=== PATIENT | female | born 1985 | race Caucasian/White ===

== ENCOUNTER 2016-08-07 17:34 | Emergency (ER) | payer MEDICAID ==
[2016-08-07] MEDS ORDERED: IPRATROPIUM/ALBUTEROL 3 ML NEB INH STA (18:44)
[2016-08-07] MEDS ORDERED: IPRATROPIUM/ALBUTEROL 3 ML NEB INH ONE (18:48)
== END 2016-08-07 19:49 | disposition home or self-care (01) ==
DX: J06.9 Acute upper respiratory infection, unspecified (principal); B97.89 Other viral agents as the cause of diseases classified elsewhere; J45.901 Unspecified asthma with (acute) exacerbation; J44.9 Chronic obstructive pulmonary disease, unspecified; F17.210 Nicotine dependence, cigarettes, uncomplicated
CPT/HCPCS: 94640; 99283; 99284; J7620

== ENCOUNTER 2016-08-20 10:08 | Outpatient (CLI) | payer MEDICAID ==
[2016-08-20] MEDS ORDERED: IOPAMIDOL-300 100 ML VIAL IVP ONE (11:00)
== END 2016-08-20 10:09 | disposition home or self-care (01) ==
DX: G44.82 Headache associated with sexual activity (principal)
CPT/HCPCS: 70460; Q9967

== ENCOUNTER 2016-11-22 17:34 | Emergency (ER) | payer MEDICAID ==
[2016-11-22] MEDS ORDERED: SODIUM CHLORIDE 0.9% 1,000 ML IV ONE (17:39)
== END 2016-11-22 20:44 | disposition home or self-care (01) ==
DX: R10.2 Pelvic and perineal pain (principal); R03.0 Elevated blood-pressure reading, without diagnosis of hypertension; J45.909 Unspecified asthma, uncomplicated; M79.7 Fibromyalgia; F17.200 Nicotine dependence, unspecified, uncomplicated

== ENCOUNTER 2017-01-21 16:27 | Emergency (ER) | payer MEDICAID ==
[2017-01-21 16:35] VITALS: BP 142/84
--- NOTE | 2017-01-21 17:12 | ED Physician Documentation ---
PD HPI HEENT - Stated complaint Stated Complaint: BOTTOM RT BROKEN TOOTH - Chief complaint Chief Complaint: Heent - History obtained from History obtained from: Patient - History of Present Illness Timing - onset: How many days ago (several) Timing - duration: Days (several) Timing - details: Gradual onset Pain level max: 6 Pain level now: 6 Location: Tooth (Right lower molar) Improves: Nothing Worsens: Temperatures, Other (Chewing) Associated symptoms: No: Fever, Congestion, Rhinorrhea, Trismus, Unable to swallow, Swollen nodes, Facial swelling, Headache, Cough Similar symptoms before: Diagnosis (Dental caries) - Additional information Additional information: Patient with dental caries to the right lower tooth, states the molar broke a few days ago. Is having increasing pain. Has a dental appointment tomorrow. 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) HEENT: Tonsil/Adenoidectomy - Present Medications Home Medications: Ambulatory Orders Medication Instructions Recorded Confirmed Hydrocodone/Acetaminophen 1 - 2 each PO Q6H PRN #10 tablet 01/21/17 [Hydrocodon-Acetaminophen 5-325] Ondansetron Odt [Zofran] 4 mg TL Q6H PRN #10 tablet 01/21/17 Penicillin V Potassium 500 mg PO Q6HR #40 tablet 01/21/17 - Allergies Allergies/Adverse Reactions: Allergies Allergy/AdvReac Type Severity Reaction Status Date / Time codeine [Codeine] AdvReac Unknown Respiratory Verified 01/21/17 16:34 naproxen AdvReac Unknown Respiratory Verified 01/21/17 16:34 pregabalin [From Lyrica] AdvReac Unknown Respiratory Verified 01/21/17 16:34 - Social History Does the pt smoke?: Yes Smoking Status: Current every day smoker Does the pt drink ETOH?: No Does the pt have substance abuse?: No - Immunizations Immunizations are current?: Yes - POLST Patient has POLST: No PD ED PE NORMAL - Vitals Vital signs reviewed: Yes - General General: Alert and oriented X 3, No acute distress, Well developed/nourished - HEENT HEENT: PERRL, Moist mucous membranes, Other (Diffuse dental caries, the right lower molar is fractured, missing the lateral portion. Decay visible. No gingival or drainable abscess. No submandibular swelling) - Neck Neck: Supple, no meningeal sign - Cardiac Cardiac: RRR, Strong equal pulses - Respiratory Respiratory: No respiratory distress, Clear bilaterally - Derm Derm: Warm and dry - Neuro Neuro: Alert and oriented X 3 - Psych Psych: Normal mood, Normal affect Results - Vitals Vitals: Vital Signs - 24 hr 01/21/17 16:32 Temperature 36.7 C Heart Rate 134 H Respiratory 16 Rate Blood Pressure 142/84 H O2 Saturation 100 Oxygen O2 Source Room air PD MEDICAL DECISION MAKING - ED course Complexity details: reviewed old records, considered differential, d/w patient ED course: Patient is a 31-year-old female who presents to the emergency department with dental decay and fractured, decaying teeth. She has a dental appointment tomorrow. Will start on antibiotics and prescribe a small amount of pain medication for home. She is well-appearing, nontoxic. Afebrile. Patient counseled regarding signs and symptoms for which I believe and urgent re- evaluation would be necessary. Patient with good understanding of and agreement to plan and is comfortable going home at this time This document was made in part using voice recognition software. While efforts are made to proofread this document, sound alike and grammatical errors may occur. No trismus. Normal phonation. No ludwigs angina Departure - Departure Disposition: 01 Home, Self Care Clinical Impression: Pain due to dental caries Condition: Good Instructions: ED Tooth Pain Follow-Up: your,dentist tomorrow [Other] Prescriptions: Penicillin V Potassium 500 mg PO Q6HR #40 tablet Hydrocodone/Acetaminophen [Hydrocodon-Acetaminophen 5-325] 1 - 2 each PO Q6H PRN #10 tablet PRN Reason: pain Ondansetron Odt [Zofran] 4 mg TL Q6H PRN #10 tablet PRN Reason: Nausea / Vomiting Comments: Make sure to follow up with your dentist tomorrow. Take all antibiotics until gone. Return if you worsen. Do not drink alcohol or drive while on narcotic pain medicine. Note that many narcotic pain relievers also contain tylenol/acetaminophen. Please ensure that your total dose of acetaminophen from all sources does not exceed 3 grams (3000mg) per day. You may constipated on this medication, take a stool softener such as "Colace" twice a day while you are on it. Also recommend a wfjb-qcb-sajhqod laxative such as senna or MiraLAX any day that you do not have a bowel movement. If you received narcotic pain medication in the emergency department, do not drive or operate machinery for the next 24 hours. Your blood pressure was elevated today on check in to the emergency department. This does not mean that you have hypertension, it is a common phenomenon to check into the emergency department and have elevated blood pressure. I recommend that you see your primary care physician within the week to have it rechecked when you're feeling better. Discharge Date/Time: 01/21/17 17:21
== END 2017-01-21 17:21 | disposition home or self-care (01) ==
LOC: ED 16:27
DX: K08.89 Other specified disorders of teeth and supporting structures (principal); K02.9 Dental caries, unspecified; R03.0 Elevated blood-pressure reading, without diagnosis of hypertension; J45.909 Unspecified asthma, uncomplicated; M79.7 Fibromyalgia; F17.200 Nicotine dependence, unspecified, uncomplicated
CPT/HCPCS: 99283

== ENCOUNTER 2017-01-24 19:03 | Emergency (ER) | payer MEDICAID ==
[2017-01-24] MEDS ORDERED: oxyCODONE/ACET 5/325 Prepack 4 PO STA (20:22)
[2017-01-24] MEDS ORDERED: cefTRIAXone 1 GM VIAL IM STA (20:22)
[2017-01-24] MEDS ORDERED: LIDOCAINE 1% 2 ML VIAL ONE (20:26)
[2017-01-24] MEDS ORDERED: oxyCODONE/ACET 5/325 Prepack 4 PO ONE (20:26)
[2017-01-24] MEDS ORDERED: cefTRIAXone 1 GM VIAL ONE (20:27)
--- NOTE | 2017-01-24 20:31 | ED Physician Documentation ---
PD HPI HEENT - Stated complaint Stated Complaint: TOOTH PX - Chief complaint Chief Complaint: General - History obtained from History obtained from: Patient - History of Present Illness Timing - onset: How many days ago (3) Timing - duration: Days (3) Timing - details: Gradual onset Pain level max: 8 Pain level now: 8 Location: Tooth (Right lower molar) Improves: Nothing Worsens: Everything Associated symptoms: Facial swelling (Right mandible). No: Fever, Congestion, Rhinorrhea, Trismus, Unable to swallow, Swollen nodes, Headache, Cough Recently seen: Emergency Dept, Other (Saw her dentist 2 days ago for a tooth extraction. Increasing pain since that time. 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) HEENT: Tonsil/Adenoidectomy - Present Medications Home Medications: Ambulatory Orders Medication Instructions Recorded Confirmed Hydrocodone/Acetaminophen 1 - 2 each PO Q6H PRN #10 tablet 01/21/17 [Hydrocodon-Acetaminophen 5-325] Ondansetron Odt [Zofran] 4 mg TL Q6H PRN #10 tablet 01/21/17 Penicillin V Potassium 500 mg PO Q6HR #40 tablet 01/21/17 Oxycodone HCl/Acetaminophen 1 - 2 each PO Q6H PRN #14 tablet 01/24/17 [Percocet 5-325 mg Tablet] - Allergies Allergies/Adverse Reactions: Allergies Allergy/AdvReac Type Severity Reaction Status Date / Time codeine [Codeine] AdvReac Unknown Respiratory Verified 01/21/17 16:34 naproxen AdvReac Unknown Respiratory Verified 01/21/17 16:34 pregabalin [From Lyrica] AdvReac Unknown Respiratory Verified 01/21/17 16:34 - Social History Does the pt smoke?: Yes Smoking Status: Current every day smoker Does the pt drink ETOH?: No Does the pt have substance abuse?: No - Immunizations Immunizations are current?: Yes - POLST Patient has POLST: No PD ED PE NORMAL - Vitals Vital signs reviewed: Yes - General General: Alert and oriented X 3, No acute distress - HEENT HEENT: Other (R lower molar extraction site, not bleeding. no visible clot. slight swelling to the lower mandible. No facial cellulitis.) - Neck Neck: Supple, no meningeal sign, No adenopathy - Cardiac Cardiac: RRR - Respiratory Respiratory: No respiratory distress, Clear bilaterally - Neuro Neuro: Alert and oriented X 3 - Psych Psych: Normal mood, Normal affect Results - Vitals Vitals: Vital Signs - 24 hr 01/24/17 01/24/17 19:06 20:53 Temperature 36.7 C Heart Rate 118 H 78 Respiratory 20 16 Rate Blood Pressure 158/100 H 131/80 H O2 Saturation 100 100 Oxygen O2 Source Room air PD MEDICAL DECISION MAKING - ED course Complexity details: considered differential, d/w patient ED course: Patient is a 31-year-old female who is 2 days status post tooth extraction, that was complicated in nature the root of the tooth reportedly had to be drilled out from the bone. She seems to be having complications from this. Given a injection of Rocephin here and will prescribe a small amount of pain medication for home. Encouraged her to talk to her dentist in the morning to get closer follow-up of her dental issues tonight. There is no drainable abscess. No Ludwigs angina. Normal phonation. No trismus. Patient counseled regarding signs and symptoms for which I believe and urgent re-evaluation would be necessary. Patient with good understanding of and agreement to plan and is comfortable going home at this time This document was made in part using voice recognition software. While efforts are made to proofread this document, sound alike and grammatical errors may occur. Departure - Departure Disposition: 01 Home, Self Care Clinical Impression: Dry socket Condition: Good Instructions: ED Socket Dry Follow-Up: your,dentist in the am [Other] Prescriptions: Oxycodone HCl/Acetaminophen [Percocet 5-325 mg Tablet] 1 - 2 each PO Q6H PRN # 14 tablet PRN Reason: pain Comments: Continue your antibiotics at home. Return if you worsen. You need to see her dentist in the morning for further evaluation. Do not drink alcohol or drive while on narcotic pain medicine. Note that many narcotic pain relievers also contain tylenol/acetaminophen. Please ensure that your total dose of acetaminophen from all sources does not exceed 3 grams (3000mg) per day. You may constipated on this medication, take a stool softener such as "Colace" twice a day while you are on it. Also recommend a ekwl-xxd-syawiok laxative such as senna or MiraLAX any day that you do not have a bowel movement. If you received narcotic pain medication in the emergency department, do not drive or operate machinery for the next 24 hours. Your blood pressure was elevated today on check in to the emergency department. This does not mean that you have hypertension, it is a common phenomenon to check into the emergency department and have elevated blood pressure. I recommend that you see your primary care physician within the week to have it rechecked when you're feeling better. Discharge Date/Time: 01/24/17 20:52
[2017-01-24 20:55] VITALS: BP 131/80
== END 2017-01-24 20:52 | disposition home or self-care (01) ==
LOC: ED 19:03
DX: M27.3 Alveolitis of jaws (principal); R03.0 Elevated blood-pressure reading, without diagnosis of hypertension; F17.200 Nicotine dependence, unspecified, uncomplicated; Z98.818 Other dental procedure status
CPT/HCPCS: 96372; 99283

== ENCOUNTER 2017-01-31 11:32 | Emergency (ER) | payer MEDICAID ==
--- NOTE | 2017-01-31 13:33 | ED Physician Documentation ---
PD HPI HEENT - Stated complaint Stated Complaint: TOOTH PX - Chief complaint Chief Complaint: Heent - History obtained from History obtained from: Patient - History of Present Illness Timing - onset: Other (Dental extraction 2 weeks ago with increasing pain a few days later and ever since, then got better and got worse again. She has some facial tenderness but no fevers. No possibility of .) Review of Systems Constitutional: denies: Fever, Chills Nose: denies: Rhinorrhea / runny nose, Congestion Throat: reports: Dental pain / toothache. 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) HEENT: Tonsil/Adenoidectomy - Present Medications Home Medications: Ambulatory Orders Medication Instructions Recorded Confirmed Ondansetron Odt [Zofran] 4 mg TL Q6H PRN #10 tablet 01/21/17 01/31/17 Penicillin V Potassium 500 mg PO Q6HR #40 tablet 01/21/17 01/31/17 Clindamycin [Cleocin] 300 mg PO Q6H 10 Days 01/31/17 HYDROcod/ACETAM 5/325 [Birdseye 5/325] 1 - 2 ea PO Q6H PRN #15 tablet 01/31/17 Nicotine 14 mg Patch [Nicoderm] 1 each TOP Q24H #30 patch 01/31/17 - Allergies Allergies/Adverse Reactions: Allergies Allergy/AdvReac Type Severity Reaction Status Date / Time codeine [Codeine] AdvReac Unknown Respiratory Verified 01/21/17 16:34 naproxen AdvReac Unknown Respiratory Verified 01/21/17 16:34 pregabalin [From Lyrica] AdvReac Unknown Respiratory Verified 01/21/17 16:34 - Social History Does the pt smoke?: Yes Smoking Status: Current every day smoker Does the pt drink ETOH?: No Does the pt have substance abuse?: No - Immunizations Immunizations are current?: Yes - POLST Patient has POLST: No PD ED PE NORMAL - Vitals Vital signs reviewed: Yes - General General: Alert and oriented X 3, No acute distress - HEENT HEENT: Other (Dry socket posterior right mandible without facial bony tenderness , facial swelling, or trismus.) - Neuro Neuro: Alert and oriented X 3, Normal speech - Psych Psych: Normal mood, Normal affect Results - Vitals Vitals: Vital Signs - 24 hr 01/31/17 11:48 Temperature 36.5 C Heart Rate 118 H Respiratory 16 Rate Blood Pressure 135/85 H O2 Saturation 99 Oxygen O2 Source Room air PD MEDICAL DECISION MAKING - ED course ED course: The patient and family were counseled as to the diagnosis and need for follow- up. I counseled the patient with regard to signs and symptoms that would necessitate an urgent reevaluation in the emergency department. They understand they are welcome to return at any time if worse or if not improving as expected. This document was made in part using voice recognition software. While efforts are made to proofread this documents, sound alike and grammatical errors may occur. Departure - Departure Disposition: 01 Home, Self Care Clinical Impression: Dry socket Condition: Good Record reviewed to determine appropriate education?: Yes Instructions: ED Tooth Pain Prescriptions: Clindamycin [Cleocin] 300 mg PO Q6H 10 Days Nicotine 14 mg Patch [Nicoderm] 1 each TOP Q24H #30 patch HYDROcod/ACETAM 5/325 [Birdseye 5/325] 1 - 2 ea PO Q6H PRN #15 tablet PRN Reason: Pain Comments: It is very important that she follow-up with a dentist. When it comes to dental problems like yours, the emergency department can only offer a short- term solution to your long-term problem. A couple of low cost options for dental care include: [facility] in [place], calls [phone] for an appointment Or [facility] in [place], call [phone] for an appointment. The policy of this emergency department is to not give more than 3 prescriptions for narcotics or other controlled substances in any 1 year. You have already surpassed this benchmark and we cannot prescribe narcotics for you. I encourage you to follow up with your primary care physician or to establish care with a primary care physician for ongoing pain management. You are always welcome to seek emergency care here for this or new issues but there will likely be limitations in the prescription of narcotic pain medication. Your blood pressure was elevated today on check into the emergency department. This does not mean that you have hypertension, it is a common phenomenon to come to the emergency department and have elevated blood pressure. I recommend that she see her primary care physician within the week to have it rechecked when you are feeling better.
[2017-01-31 13:37] VITALS: BP 130/68
== END 2017-01-31 13:37 | disposition home or self-care (01) ==
LOC: ED 11:32
DX: M27.3 Alveolitis of jaws (principal); R03.0 Elevated blood-pressure reading, without diagnosis of hypertension; J45.909 Unspecified asthma, uncomplicated; M79.7 Fibromyalgia; F17.200 Nicotine dependence, unspecified, uncomplicated
CPT/HCPCS: 99283

== ENCOUNTER 2017-02-05 10:43 | Outpatient (CLI) | payer MEDICAID ==
[2017-02-05 12:50] LABS: THYROID STIMULATING HORMONE 2.4 uIU/mL (0.34-5.60)
[2017-02-08 14:41] LABS: ANA SCREEN NEGATIVE (NEGATIVE)
== END 2017-02-05 10:44 | disposition home or self-care (01) ==
LOC: LAB 10:43
PROVIDERS: ATTEND Obstetrics & Gynecology
DX: R10.30 Lower abdominal pain, unspecified (principal)
CPT/HCPCS: 36415; 84439; 84443; 84481; 86038

== ENCOUNTER 2017-07-30 18:59 | Emergency (ER) | payer MEDICAID ==
[2017-07-30] MEDS ORDERED: ONDANSETRON ODT 4 MG TABLET TL STA (20:49)
[2017-07-30] MEDS ORDERED: KETOROLAC 60 MG/2 ML VIAL IM STA (20:49)
[2017-07-30] MEDS ORDERED: BENZONATATE 100 MG CAPSULE PO STA (20:50)
[2017-07-30] MEDS ORDERED: IBUPROFEN 600 MG TABLET PO STA (21:13)
--- NOTE | 2017-07-30 21:21 | XRAY Preliminary Report ---
Exam: XR CHEST 2 VIEW PA/LAT IMPRESSION: 1. Right middle lobe consolidation with bronchitis. 2. No pneumothorax or effusions. [facility] SITE ID: [id number]
[2017-07-30] MEDS ORDERED: AZITHROMYCIN 250 MG TABLET PO STA (22:10)
--- NOTE | 2017-07-30 22:10 | ED Physician Documentation ---
PD HPI URI - Stated complaint Stated Complaint: COUGH - Chief complaint Chief Complaint: Resp - History obtained from History obtained from: Patient - History of Present Illness Timing - onset: How many weeks ago (1) Timing details: Gradual onset, Still present Associated symptoms: Fever, Chills, Nasal congestion, Rhinorrhea, Productive cough Contributing factors: Sick contact Similar symptoms before: Work up / diagnostics Recently seen: Not recently seen - Additional information Additional information: Patient is a 32 year old female with no significant past medical history who is presenting to the emergency department for cough, fevers, congestion, and rib pain. patient states that she has not been feeling well for about the last week or so. patient states that for the last three days she has had more fevers , nausea, and pain with coughing. Patient states that she is worried that she might have pneumonia. Review of Systems Constitutional: reports: Fever, Chills, Myalgias Eyes: denies: Decreased vision, Photophobia Ears: reports: Ear pain Nose: reports: Rhinorrhea / runny nose, Congestion, Sinus pressure / pain Throat: denies: Sore throat Cardiac: denies: Chest pain / pressure, Palpitations Respiratory: reports: Cough GI: reports: Nausea, Vomiting, Diarrhea : denies: Dysuria, Frequency Skin: denies: Rash, Lesions Neurologic: denies: Generalized weakness, Focal weakness, Numbness Immunocompromised: denies: Immunocompromised PD PAST MEDICAL HISTORY - Past Medical History Past Medical History: Yes Cardiovascular: None Respiratory: Asthma Neuro: Headache/migraine Endocrine/Autoimmune: None GI: None : None HEENT: None Psych: None Musculoskeletal: Fibromyalgia, Chronic back pain Derm: None - Past Surgical History 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) HEENT: Tonsil/Adenoidectomy - Present Medications Home Medications: Ambulatory Orders Medication Instructions Recorded Confirmed Ondansetron Odt [Zofran] 4 mg TL Q6H PRN #10 tablet 01/21/17 01/31/17 Penicillin V Potassium 500 mg PO Q6HR #40 tablet 01/21/17 01/31/17 Clindamycin [Cleocin] 300 mg PO Q6H 10 Days capsule 01/31/17 HYDROcod/ACETAM 5/325 [Martha 5/325] 1 - 2 ea PO Q6H PRN #15 tablet 01/31/17 Nicotine 14 mg Patch [Nicoderm] 1 each TOP Q24H #30 patch 01/31/17 Azithromycin 250 mg PO DAILY #4 tablet 07/30/17 Benzonatate [Tessalon Perle] 100 mg PO Q8HR #20 capsule 07/30/17 - Allergies Allergies/Adverse Reactions: Allergies Allergy/AdvReac Type Severity Reaction Status Date / Time codeine [Codeine] AdvReac Unknown Respiratory Verified 01/21/17 16:34 naproxen AdvReac Unknown Respiratory Verified 01/21/17 16:34 pregabalin [From Lyrica] AdvReac Unknown Respiratory Verified 01/21/17 16:34 - Social History Does the pt smoke?: Yes Smoking Status: Current every day smoker Does the pt drink ETOH?: No Does the pt have substance abuse?: No - Immunizations Immunizations are current?: Yes - POLST Patient has POLST: No PD ED PE NORMAL - Vitals Vital signs reviewed: Yes - General General: Alert and oriented X 3 - Cardiac Cardiac: No murmur - Respiratory Respiratory: No respiratory distress, Clear bilaterally - Abdomen Abdomen: Soft, Non tender, Non distended - Derm Derm: Normal color, Warm and dry, No rash PD ED PE EXPANDED - Cardiac Cardiac: Tachy - Respiratory Respiratory: Rhonchi, Right lower lobe Results - Vitals Vitals: Vital Signs - 24 hr 07/30/17 07/30/17 07/30/17 19:49 20:41 22:07 Temperature 37.9 C H 37.3 C Heart Rate 116 H 106 H 103 H Respiratory 18 18 16 Rate Blood Pressure 136/80 H 148/93 H 134/85 H O2 Saturation 100 98 97 07/30/17 22:22 Temperature 37.1 C Heart Rate 105 H Respiratory 18 Rate Blood Pressure 139/80 H O2 Saturation 97 Oxygen O2 Source Room air - Rads (name of study) chest x-ray Radiology: Final report received (bronchitis with right sided consolidation) PD MEDICAL DECISION MAKING - ED course Complexity details: reviewed old records, reviewed results, re-evaluated patient , considered differential, d/w patient ED course: Patient was seen and examined at bedside. Imaging was ordered. When patient returned the results were reviewed. Patient was found to have a right sided pneumonia. Patient was started on azithromycin. Patient had a low psi and was appropriate for outpatient care. Patient felt comfortable with the plan and was stable for discharge with outpatient follow up. Departure - Departure Disposition: 01 Home, Self Care Clinical Impression: Pneumonia Condition: Good Instructions: Pneumonia Dc Follow-Up: primary,care provider [Other] - Within 3 Days Prescriptions: Benzonatate [Tessalon Perle] 100 mg PO Q8HR #20 capsule Azithromycin 250 mg PO DAILY #4 tablet Comments: Your chest x-ray showed a pneumonia. You had your first dose of antibiotics tonight and you will need to take them for the next 4 days. You should continue with cough and cold medicine. it is important that you stay well hydrated and take motrin or tylenol as needed for fevers, chills or pains. You should follow up with your doctor if your symptoms don't improve. You may return to the emergency department at any time for new, worsening or uncontrollable symptoms. Discharge Date/Time: 07/30/17 22:24
[2017-07-30 22:23] VITALS: BP 139/80
--- NOTE | 2017-07-30 23:03 | XRAY Report ---
EXAM: CHEST RADIOGRAPHY EXAM DATE: 07/30/2017 09:07 PM. CLINICAL HISTORY: Fever cough. COMPARISON: 05/29/2016. TECHNIQUE: 2 views. FINDINGS: Lungs/Pleura: Peribronchial cuffing with right middle lobe consolidation and air bronchograms. No eff usions or pneumothorax appreciated. Mediastinum: Heart and mediastinal contours are unremarkable. Other: None. IMPRESSION: 1. Right middle lobe consolidation with bronchitis. 2. No pneumothorax or effusions. [facility] Referring Provider Line: [phone] SITE ID: [id number]
== END 2017-07-30 22:24 | disposition home or self-care (01) ==
LOC: ED 18:59
DX: J18.9 Pneumonia, unspecified organism (principal); J45.909 Unspecified asthma, uncomplicated; M79.7 Fibromyalgia; F17.200 Nicotine dependence, unspecified, uncomplicated
CPT/HCPCS: 71020; 99283; 99284; A9270; Q0162

== ENCOUNTER 2017-10-15 13:15 | Emergency (ER) | payer MEDICAID ==
--- NOTE | 2017-10-15 14:53 | XRAY Preliminary Report ---
Exam: XR ANKLE 3 VIEW LT IMPRESSION: 1. No fracture or bony malalignment. 2. Mild lateral swelling. [facility] SITE ID: [id number]
--- NOTE | 2017-10-15 14:53 | XRAY Report ---
EXAM: LEFT ANKLE RADIOGRAPHY EXAM DATE: 10/15/2017 02:37 PM. CLINICAL HISTORY: Left ankle pain after fall today. COMPARISON: None. TECHNIQUE: 3 views. FINDINGS: Bones: No fracture or bone lesion. A small plantar calcaneal enthesophyte. Joints: No subluxation or joint effusion. Joint spaces are preserved. Soft Tissues: Mild swelling more prominent laterally. IMPRESSION: 1. No fracture or bony malalignment. 2. Mild lateral swelling. [facility] Referring Provider Line: [phone] SITE ID: [id number]
[2017-10-15] MEDS ORDERED: HYDROcod/ACETAM 5/325 MG TABLET PO STA (14:57)
[2017-10-15] MEDS ORDERED: IBUPROFEN 800 MG TABLET PO STA (14:57)
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
[2017-10-15 15:08] VITALS: BP 131/82
== END 2017-10-15 15:29 | disposition home or self-care (01) ==
LOC: ED 13:15
DX: S93.432A Sprain of tibiofibular ligament of left ankle, initial encounter (principal); W17.81XA Fall down embankment (hill), initial encounter; R03.0 Elevated blood-pressure reading, without diagnosis of hypertension; J45.909 Unspecified asthma, uncomplicated; M79.7 Fibromyalgia; F17.200 Nicotine dependence, unspecified, uncomplicated
CPT/HCPCS: 73610; 99283; A9270

== ENCOUNTER 2017-12-16 22:21 | Emergency (ER) | payer MEDICAID ==
[2017-12-16] MEDS ORDERED: predniSONE 20 MG TABLET PO STA (22:41)
[2017-12-16] MEDS ORDERED: AZITHROMYCIN 250 MG TABLET PO STA (22:41)
[2017-12-16] MEDS ORDERED: HYDROcod/ACET 5/325 Prepack 4 PO STA (22:41)
--- NOTE | 2017-12-16 22:49 | ED Physician Documentation ---
History of Present Illness - Stated complaint Stated Complaint: COUGH - Chief complaint Chief Complaint: Resp - History obtained from History obtained from: Patient - History of Present Illness Timing: Other (She has had a productive cough for last 3 weeks which is worsening and is now associated with shortness of breath and chills and sweats especially at night. She is a smoker but has cut back. There is no other URI symptom with it, no fever, no leg swelling. She has been using albuterol, NyQuil and Benadryl without relief.) Review of Systems Constitutional: reports: Chills, Sweats. 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 surgery) HEENT: Tonsil/Adenoidectomy - Present Medications Home Medications: Ambulatory Orders Medication Instructions Recorded Confirmed HYDROcod/ACETAM 5/325 [[place] 5/325] 1 - 2 ea PO Q6H PRN #10 tablet 10/15/17 Ibuprofen [Motrin] 800 mg PO Q8H PRN #30 tablet 10/15/17 Azithromycin [Zithromax] 250 mg PO DAILY #4 tablet 12/16/17 HYDROcod/ACETAM 5/325 [[place] 5/325] 1 - 2 ea PO Q6H PRN #10 tablet 12/16/17 predniSONE [Deltasone] 20 mg PO [id number] #21 tab 12/16/17 - Allergies Allergies/Adverse Reactions: Allergies Allergy/AdvReac Type Severity Reaction Status Date / Time codeine [Codeine] AdvReac Unknown Respiratory Verified 12/16/17 22:37 naproxen AdvReac Unknown Respiratory Verified 12/16/17 22:37 pregabalin [From Lyrica] AdvReac Unknown Respiratory Verified 12/16/17 22:37 - Social History Does the pt smoke?: Yes Smoking Status: Current every day smoker Does the pt drink ETOH?: No Does the pt have substance abuse?: No - Immunizations Immunizations are current?: Yes - POLST Patient has POLST: No PD ED PE NORMAL - Vitals Vital signs reviewed: Yes (Tachycardia down to 105 on my exam) - General General: Alert and oriented X 3, No acute distress - HEENT HEENT: PERRL, EOMI, Ears normal, Pharynx benign - Neck Neck: Supple, no meningeal sign, No bony TTP - Cardiac Cardiac: RRR, No murmur - Respiratory Respiratory: No respiratory distress, Other (Focal rhonchi at the right base) - Abdomen Abdomen: Soft, Non tender - Extremities Extremities: No edema, No calf tenderness / cord - Neuro Neuro: Alert and oriented X 3, Normal speech Results - Vitals Vitals: Vital Signs - 24 hr 12/16/17 22:26 Temperature 37.0 C Heart Rate 127 H Respiratory 24 Rate Blood Pressure 161/98 H O2 Saturation 99 Oxygen O2 Source Room air Departure - Departure Disposition: Home, Self Care Clinical Impression: Pneumonia Qualifiers: Pneumonia type: due to unspecified organism Laterality: right Lung location: lower lobe of lung Qualified Code(s): J18.1 - Lobar pneumonia, unspecified organism Condition: Good Record reviewed to determine appropriate education?: Yes Instructions: Pneumonia Dc Prescriptions: Azithromycin [Zithromax] 250 mg PO DAILY #4 tablet HYDROcod/ACETAM 5/325 [[place] 5/325] 1 - 2 ea PO Q6H PRN #10 tablet PRN Reason: Pain predniSONE [Deltasone] 20 mg PO [id number] #21 tab Comments: Call your doctor to arrange a follow-up appointment, make the next available appointment. In the interim, return anytime if worse or if new symptoms develop. Your blood pressure was elevated today on check into the emergency department. This does not mean that you have hypertension, it is a common phenomenon to come to the emergency department and have elevated blood pressure. I recommend that you see your primary care physician within the week to have it rechecked when you are feeling better.
[2017-12-16 23:20] VITALS: BP 128/73
== END 2017-12-16 22:58 | disposition home or self-care (01) ==
LOC: ED 22:21
DX: J18.1 Lobar pneumonia, unspecified organism (principal); R03.0 Elevated blood-pressure reading, without diagnosis of hypertension; R00.0 Tachycardia, unspecified; F17.200 Nicotine dependence, unspecified, uncomplicated
CPT/HCPCS: 99283; 99284; A9270; J7512

== ENCOUNTER 2018-06-09 19:16 | Emergency (ER) | payer MEDICAID ==
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
[2018-06-09] MEDS ORDERED: CYCLOBENZAPRINE 10 MG Prepack 2 PO PRN (21:56)
[2018-06-09 22:05] VITALS: BP 132/81
== END 2018-06-09 22:04 | disposition home or self-care (01) ==
LOC: ED 19:16
DX: S16.1XXA Strain of muscle, fascia and tendon at neck level, initial encounter (principal); V43.52XA Car driver injured in collision with other type car in traffic accident, initial encounter; Y92.410 Unspecified street and highway as the place of occurrence of the external cause; F17.200 Nicotine dependence, unspecified, uncomplicated
CPT/HCPCS: 72125; 99283

== ENCOUNTER 2018-07-02 20:30 | Emergency (ER) | payer MEDICAID, OTHER ==
[2018-07-02] MEDS ORDERED: DEXAMETHASONE 10 MG/ML VIAL PO STA (20:45)
[2018-07-02] MEDS ORDERED: IPRATROPIUM/ALBUTEROL 3 ML NEB INH STA (20:45)
[2018-07-02 20:47] VITALS: BP 176/124
--- NOTE | 2018-07-02 20:51 | ED Physician Documentation ---
PD HPI DYSPNEA - Stated complaint Stated Complaint: SOA/COUGH - Chief complaint Chief Complaint: Resp - History obtained from History obtained from: Patient - History of Present Illness Timing - onset: How many days ago (4) Timing - onset during: Rest Timing - duration: Days (4) Timing - details: Gradual onset, Still present Inciting event(s): Allergic rxn/anaphylaxis Improved by: Inhaler/neb Worsened by: Exertion Associated symptoms: Cough, Wheezing Similar symptoms before: Diagnosis (bronchitis) Recently seen: Not recently seen - Additional information Additional information: 33-year-old female with a history of asthma has developed a cough and congestion over the past 4 days. She has had to use her inhaler every 2 hours over the last 4 days. She has an nebulizer machine at home as well. She is not using an inhaled steroid. She has asthma that she will use an inhaler for about once per week. She is not bringing up any phlegm with this, she has not had a fever, she has had some sweats at night. Review of Systems Constitutional: reports: Sweats. 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) HEENT: Tonsil/Adenoidectomy - Present Medications Home Medications: Ambulatory Orders Medication Instructions Recorded Confirmed HYDROcod/ACETAM 5/325 [[place] 5/325] 1 - 2 ea PO Q6H PRN #10 tablet 10/15/17 Ibuprofen [Motrin] 800 mg PO Q8H PRN #30 tablet 10/15/17 Azithromycin [Zithromax] 250 mg PO DAILY #4 tablet 12/16/17 HYDROcod/ACETAM 5/325 [[place] 5/325] 1 - 2 ea PO Q6H PRN #10 tablet 12/16/17 predniSONE [Deltasone] 20 mg PO [id number] #21 tab 12/16/17 Cyclobenzaprine [Flexeril] 10 mg PO TID PRN #20 tablet 06/09/18 Azithromycin [Zithromax] 250 mg PO DAILY #6 tablet 07/02/18 predniSONE [Deltasone] 10 mg PO DAILY #26 tablet 07/02/18 - Allergies Allergies/Adverse Reactions: Allergies Allergy/AdvReac Type Severity Reaction Status Date / Time codeine [Codeine] AdvReac Unknown Respiratory Verified 07/02/18 20:36 naproxen AdvReac Unknown Respiratory Verified 07/02/18 20:36 pregabalin [From Lyrica] AdvReac Unknown Respiratory Verified 07/02/18 20:36 - Social History Does the pt smoke?: Yes Smoking Status: Current every day smoker Does the pt drink ETOH?: No Does the pt have substance abuse?: No - Immunizations Immunizations are current?: Yes - POLST Patient has POLST: No PD ED PE NORMAL - Vitals Vital signs reviewed: Yes (tachy and tachypneic) - General General: No acute distress, Well developed/nourished - HEENT HEENT: Atraumatic, PERRL, EOMI, Ears normal, Moist mucous membranes, Pharynx xuan ign, Dentition benign - Neck Neck: Supple, no meningeal sign, No bony TTP - Cardiac Cardiac: No murmur, Other (tachy to 120) - Respiratory Respiratory: Other (tachypneic with audible wheeze and no focal rhonchi) - Abdomen Abdomen: Soft, Non tender - Back Back: No CVA TTP, No spinal TTP - Derm Derm: Normal color, Warm and dry, No rash - Extremities Extremities: No deformity, No edema - Neuro Neuro: Alert and oriented X 3, 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, No motor deficit, No sensory deficit, Normal speech Eye Opening: Spontaneous Motor: Obeys Commands Verbal: Oriented GCS Score: 15 - Psych Psych: Normal mood, Normal affect Results - Vitals Vitals: Vital Signs - 24 hr 07/02/18 07/02/18 07/02/18 20:32 20:46 20:54 Temperature 36.7 C Heart Rate 135 H 140 H Respiratory 20 22 20 Rate Blood Pressure 165/99 H 176/124 H O2 Saturation 97 97 Oxygen O2 Source Room air - Rads (name of study) 2 view chest Radiology: Prelim report reviewed (Pression: Patchy perihilar opacities bilaterally.), EMP read indepedently, See rad report PD MEDICAL DECISION MAKING - ED course Complexity details: reviewed old records, reviewed results, re-evaluated patient, considered differential, d/w patient ED course: 33-year-old who is female with a history of asthma has developed increasing dyspnea and wheezing and has had to use her inhaler and nebulizer continuously. X-ray examination of the chest reveals faint bi-hilar infiltrate and the patient is administered Rocephin 1 g IM as well as a DuoNeb treatment and 10 mg of dexamethasone. She is sore in her ribs from coughing and we have dispensed some hydrocodone to her for tonight. We are expecting her to improve rapidly. She is prescribed a prednisone taper and a course of azithromycin. She has had pneumonia twice previously and has responded to this treatment. Departure - Departure Disposition: 01 Home, Self Care Clinical Impression: Pneumonia Qualifiers: Pneumonia type: due to unspecified organism Laterality: bilateral Lung location: lower lobe of lung Qualified Code(s): J18.1 - Lobar pneumonia, unspecified organism Asthma exacerbation Qualifiers: Asthma severity: mild Asthma persistence: intermittent Qualified Code(s): J45.21 - Mild intermittent asthma with (acute) exacerbation Instructions: ED Reactive Airway Disease, ED Pneumonia Adult Follow-Up: Dominique Donald PA-C [Primary Care Provider] - Prescriptions: Azithromycin [Zithromax] 250 mg PO DAILY #6 tablet predniSONE [Deltasone] 10 mg PO DAILY #26 tablet Forms: Activity restrictions
--- NOTE | 2018-07-02 21:43 | XRAY Report ---
Reason: cough soa wheezing Procedure Date: 07/02/2018 Accession Number: [id number] / [id number] Procedure: XR - Chest 2 View X-Ray CPT Code: 60118 FULL RESULT: EXAM: CHEST RADIOGRAPHY EXAM DATE: 07/02/2018 09:18 PM. CLINICAL HISTORY: Cough, chest pain, wheezing COMPARISON: 07/30/2017. TECHNIQUE: 2 views. FINDINGS: Lungs/Pleura: Patchy perihilar opacities bilaterally. No pleural effusions. No pneumothorax. Mediastinum: Heart and mediastinal contours are unremarkable. Other: None. IMPRESSION: Patchy perihilar opacities bilaterally. RADIA
[2018-07-02] MEDS ORDERED: LIDOCAINE 1% 2 ML VIAL SUBQ ONE (21:48)
[2018-07-02] MEDS ORDERED: cefTRIAXone 1 GM VIAL IM STA (21:48)
[2018-07-02] MEDS ORDERED: HYDROcod/ACET 5/325 Prepack 4 PO STA (22:12)
== END 2018-07-02 22:23 | disposition home or self-care (01) ==
LOC: ED 20:30
DX: J18.1 Lobar pneumonia, unspecified organism (principal); J45.21 Mild intermittent asthma with (acute) exacerbation; F17.200 Nicotine dependence, unspecified, uncomplicated
CPT/HCPCS: 71046; 94640; 96372; 99283

== ENCOUNTER 2018-12-14 09:48 | Outpatient (CLI) | payer MEDICAID ==
[2018-12-14 10:11] LABS: HGB - HEMOGLOBIN 14.6 g/dL (12.0-16.0); MEAN CORPUSCULAR HEMOGLOBIN 30.6 pg (27.0-31.0); MEAN CORPUSCULAR HGB CONC 34.2 g/dL (32.0-36.0); MEAN CORPUSCULAR VOLUME 89.5 fL (81.0-99.0); RED BLOOD COUNT 4.76 10^6/uL (4.20-5.40); RED CELL DISTRIBUTION WIDTH 13.1 % (12.0-15.0); WHITE BLOOD COUNT 7.9 x10^3/uL (4.8-10.8)
[2018-12-14 10:32] LABS: ALBUMIN/GLOBULIN RATIO 1.2 (1.0-2.2); ALKALINE PHOSPHATASE 45 IU/L (42-121); ALT ALANINE AMINOTRANSFERASE 16 IU/L (10-60); AST ASPARTATE AMINOTRANSFERASE 22 IU/L (10-42); BILIRUBIN,TOTAL 0.3 mg/dL (0.2-1.0); BUN - BLOOD UREA NITROGEN 14 mg/dL (6-20); CARBON DIOXIDE - CO2 25 mmol/L (21-32); CHLORIDE 101 mmol/L (101-111); CHOL/HDL RATIO 8.2 (<4.4); CHOLESTEROL 354 mg/dL; CREATININE 0.7 mg/dL (0.4-1.0); GFR - MDRD 96 (>89); GLUCOSE 112 mg/dL (70-100); HDL CHOLESTEROL 43 mg/dL; LDL CHOLESTEROL,CALCULATED 265 mg/dL; LDL/HDL RATIO 6.2 (<4.4); SODIUM 136 mmol/L (135-145); TOTAL PROTEIN 7.3 g/dL (6.7-8.2); VLDL CHOLESTEROL 46 mg/dL
[2018-12-14 10:39] LABS: HB2 TOTAL 15.5 g/dL; HEMOGLOBIN A1C 0.56 g/dL; HEMOGLOBIN A1C % 5.5 % (4.6-6.2)
[2018-12-14 10:42] LABS: THYROID STIMULATING HORMONE 1.43 uIU/mL (0.34-5.60)
[2018-12-15 13:12] LABS: HEPATITIS B SURFACE ANTIGEN NON-REACTIVE (NON-REACTIVE)
[2018-12-15 13:21] LABS: HIV AG/AB 4TH GEN NON-REACTIVE (NON-REACTIVE)
== END 2018-12-14 09:49 | disposition home or self-care (01) ==
LOC: LAB 09:48
PROVIDERS: ATTEND Obstetrics & Gynecology
DX: Z13.1 Encounter for screening for diabetes mellitus (principal); Z13.220 Encounter for screening for lipoid disorders; M54.10 Radiculopathy, site unspecified; Z13.29 Encounter for screening for other suspected endocrine disorder; Z13.0 Encounter for screening for diseases of the blood and blood-forming organs and certain disorders involving the immune mechanism; Z20.2 Contact with and (suspected) exposure to infections with a predominantly sexual mode of transmission
CPT/HCPCS: 36415; 80053; 80061; 81599; 82607; 82746; 83036; 83721; 84443; 85027; 87340; 87389

== ENCOUNTER 2019-01-06 19:28 | Emergency (ER) | payer MEDICAID ==
[2019-01-06] MEDS ORDERED: SUMAtriptan 25 MG TABLET PO STA (19:54)
[2019-01-06] MEDS ORDERED: ACETAMINOPHEN 325 MG TABLET PO STA (19:54)
--- NOTE | 2019-01-06 19:57 | ED Physician Documentation ---
PD HPI BACK PAIN - Stated complaint Stated Complaint: BACK PX - Chief complaint Chief Complaint: Back Pain - History obtained from History obtained from: Patient - History of Present Illness Timing - onset: Other (33yo with intermittent but rare low back pain, asthma presents with 4 days of bilateral sacral pain radiating out towards the hips without radiation to the legs. She had some occasional body zaps and tingling in the right foot. No fevers, chills, nausea saddle anesthesia or incontinence. She also has a migraine. Her heart rate on check and was quite high, she says she had 5 shots of coffee just prior to arrival. She denies chest pain or trouble breathing. 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) HEENT: Tonsil/Adenoidectomy - Present Medications Home Medications: Ambulatory Orders Medication Instructions Recorded Confirmed Albuterol Sulfate [Proventil Hfa 1 - 2 puffs INH Q4H PRN 01/06/19 01/06/19 Inhaler] Hydrocodone/Acetaminophen 1 - 2 each PO Q6H PRN #14 tablet 01/06/19 [Hydrocodon-Acetaminophen 5-325] Sertraline [Zoloft] 25 mg PO DAILY 01/06/19 01/06/19 diphenhydrAMINE [Benadryl] 25 mg PO HS 01/06/19 01/06/19 - Allergies Allergies/Adverse Reactions: Allergies Allergy/AdvReac Type Severity Reaction Status Date / Time codeine [Codeine] AdvReac Unknown Respiratory Verified 01/06/19 19:36 naproxen AdvReac Unknown Respiratory Verified 01/06/19 19:36 pregabalin [From Lyrica] AdvReac Unknown Respiratory Verified 01/06/19 19:36 - Social History Does the pt smoke?: Yes Smoking Status: Current every day smoker Does the pt drink ETOH?: No Does the pt have substance abuse?: No - Immunizations Immunizations are current?: Yes - POLST Patient has POLST: No PD ED PE NORMAL - Vitals Vital signs reviewed: Yes (Tachycardic and hypertensive) - General General: Alert and oriented X 3, No acute distress, Other (Tremulous) - HEENT HEENT: PERRL, EOMI - Neck Neck: Supple, no meningeal sign, No bony TTP - Cardiac Cardiac: Other (Tachycardic but improving with time) - Respiratory Respiratory: No respiratory distress, Clear bilaterally - Abdomen Abdomen: Soft, Non tender - Back Back: No spinal TTP - Extremities Extremities: No edema, No calf tenderness / cord, Other (The patient has equal and normal Achilles and patellar reflexes bilaterally. Normal sensation in all areas of the legs. Patient denies saddle anesthesia. 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 Eye Opening: Spontaneous Motor: Obeys Commands Verbal: Oriented GCS Score: 15 Results - Vitals Vitals: Vital Signs - 24 hr 01/06/19 01/06/19 01/06/19 19:32 19:50 21:15 Temperature 36.3 C L Heart Rate 149 H 132 H 107 H Respiratory 20 17 16 Rate Blood Pressure 151/106 H O2 Saturation 99 100 98 Oxygen O2 Source Room air - EKG (time done) 2005 Rate: Rate (enter#) (115) Rhythm: Sinus tachycardia [place]: Normal Intervals: Normal ND QRS: Normal Ischemia: Normal ST segments Computer interpretation: Agree with computer - Labs Labs: Laboratory Tests 01/06/19 01/06/19 20:11 20:11 WBC 9.7 RBC 4.88 Hgb 15.0 Hct 44.0 MCV 90.2 MCH 30.8 MCHC 34.1 RDW 13.2 Plt Count 320 MPV 7.1 L Neut # (Auto) 5.4 Lymph # (Auto) 3.5 [place] # (Auto) 0.7 Eos # (Auto) 0.0 Baso # (Auto) 0.1 Absolute Nucleated RBC 0.01 Nucleated RBC % 0.1 Sodium 137 Potassium 3.8 Chloride 102 Carbon Dioxide 22 Anion Gap 13.0 BUN 10 Creatinine 0.6 Estimated GFR (MDRD) 115 Glucose 107 H Calcium 9.5 Total Bilirubin 0.6 AST 20 ALT 18 Alkaline Phosphatase 51 Total Protein 7.8 Albumin 4.3 Globulin 3.5 Albumin/Globulin Ratio 1.2 Lipase 29 Ethyl Alcohol < 5.0 PD MEDICAL DECISION MAKING - ED course ED course: She presents with seemingly uncomplicated low back pain. She is noted to be significantly tachycardic and tremulous though. This could be from pain or excessive caffeine use which she admits to. Without specific treatment though her heart rate came down to about 100 before discharge. Departure - Departure Disposition: Home, Self Care Clinical Impression: Tachycardia Low back pain Qualifiers: Chronicity: acute Back pain laterality: midline Sciatica presence: without sciatica Qualified Code(s): M54.5 - Low back pain Condition: Good Record reviewed to determine appropriate education?: Yes Instructions: ED Sprain Strain Lumbar Prescriptions: Hydrocodone/Acetaminophen [Hydrocodon-Acetaminophen 5-325] 1 - 2 each PO Q6H PRN #14 tablet PRN Reason: pain Comments: Call your doctor to arrange a follow-up appointment, make the next available appointment. In the interim, return anytime if worse or if new symptoms develop. Decrease caffeine use.
[2019-01-06 20:17] LABS: BASOPHILS # (AUTO) 0.1 10^3/uL (0.0-0.1); BASOPHILS % (AUTO) 1.2 %; EOSINOPHILS % (AUTO) 0.1 %; LYMPHOCYTES # (AUTO) 3.5 10^3/uL (1.5-3.5); LYMPHOCYTES % (AUTO) 36.1 %; MEAN CORPUSCULAR HEMOGLOBIN 30.8 pg (27.0-31.0); MEAN CORPUSCULAR HGB CONC 34.1 g/dL (32.0-36.0); MEAN CORPUSCULAR VOLUME 90.2 fL (81.0-99.0); MEAN PLATELET VOLUME 7.1 fL (7.9-10.8); MONOCYTES # (AUTO) 0.7 10^3/uL (0.0-1.0); MONOCYTES % (AUTO) 7.7 %; NEUTROPHILS # (AUTO) 5.4 10^3/uL (1.5-6.6); NEUTROPHILS % (AUTO) 54.9 %; PLT - PLATELET COUNT 320 10^3/uL (130-450); RED BLOOD COUNT 4.88 10^6/uL (4.20-5.40); RED CELL DISTRIBUTION WIDTH 13.2 % (12.0-15.0); WHITE BLOOD COUNT 9.7 x10^3/uL (4.8-10.8)
[2019-01-06 20:34] LABS: ALBUMIN 4.3 g/dL (3.2-5.5); ALBUMIN/GLOBULIN RATIO 1.2 (1.0-2.2); ALKALINE PHOSPHATASE 51 IU/L (42-121); ALT ALANINE AMINOTRANSFERASE 18 IU/L (10-60); AST ASPARTATE AMINOTRANSFERASE 20 IU/L (10-42); BILIRUBIN,TOTAL 0.6 mg/dL (0.2-1.0); BUN - BLOOD UREA NITROGEN 10 mg/dL (6-20); CALCIUM 9.5 mg/dL (8.5-10.3); CARBON DIOXIDE - CO2 22 mmol/L (21-32); CHLORIDE 102 mmol/L (101-111); CREATININE 0.6 mg/dL (0.4-1.0); GFR - MDRD 115 (>89); GLUCOSE 107 mg/dL (70-100); LIPASE 29 U/L (22-51); SODIUM 137 mmol/L (135-145); TOTAL PROTEIN 7.8 g/dL (6.7-8.2)
[2019-01-06] MEDS ORDERED: HYDROcod/ACETAM 5/325 MG TABLET PO STA (20:34)
[2019-01-06] MEDS ORDERED: HYDROcod/ACET 5/325 Prepack 4 PO STA (21:18)
[2019-01-06 21:23] VITALS: BP 160/116
== END 2019-01-06 21:46 | disposition home or self-care (01) ==
LOC: ED 19:28
DX: M54.5 Low back pain (principal); R00.0 Tachycardia, unspecified; R25.1 Tremor, unspecified; F15.90 Other stimulant use, unspecified, uncomplicated; M79.7 Fibromyalgia; J45.909 Unspecified asthma, uncomplicated; F17.200 Nicotine dependence, unspecified, uncomplicated
CPT/HCPCS: 36415; 80053; 80320; 83690; 85025; 93005; 99283; A9270

== ENCOUNTER 2019-04-04 22:37 | Emergency (ER) | payer MEDICAID ==
[2019-04-04 22:47] VITALS: BP 154/96
[2019-04-04] MEDS ORDERED: CLINDAMYCIN 150 MG CAPSULE PO STA (22:56)
[2019-04-04] MEDS ORDERED: HYDROcod/ACET 5/325 Prepack 4 PO STA (22:56)
--- NOTE | 2019-04-04 23:00 | ED Physician Documentation ---
History of Present Illness - Stated complaint Stated Complaint: LT SIDE TOOTH PX - Chief complaint Chief Complaint: General - History obtained from History obtained from: Patient - History of Present Illness Timing: Other (These had ongoing mild pain from a broken tooth, left maxillary. She had an appointment for root canal but missed it due to a move. Over the last day her face has become swollen. 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) HEENT: Tonsil/Adenoidectomy - Present Medications Home Medications: Ambulatory Orders Medication Instructions Recorded Confirmed Albuterol Sulfate [Proventil Hfa 1 - 2 puffs INH Q4H PRN 01/06/19 01/06/19 Inhaler] Hydrocodone/Acetaminophen 1 - 2 each PO Q6H PRN #14 tablet 01/06/19 [Hydrocodon-Acetaminophen 5-325] Sertraline [Zoloft] 25 mg PO DAILY 01/06/19 01/06/19 diphenhydrAMINE [Benadryl] 25 mg PO HS 01/06/19 01/06/19 Clindamycin HCl [Clindamycin 300MG 300 mg PO Q6H #40 capsule 04/04/19 CAP] - Allergies Allergies/Adverse Reactions: Allergies Allergy/AdvReac Type Severity Reaction Status Date / Time codeine [Codeine] AdvReac Unknown Respiratory Verified 04/04/19 22:47 naproxen AdvReac Unknown Respiratory Verified 04/04/19 22:47 pregabalin [From Lyrica] AdvReac Unknown Respiratory Verified 04/04/19 22:47 - Social History Does the pt smoke?: Yes Smoking Status: Current every day smoker Does the pt drink ETOH?: No Does the pt have substance abuse?: No - Immunizations Immunizations are current?: Yes - POLST Patient has POLST: No PD ED PE NORMAL - Vitals Vital signs reviewed: Yes - General General: Alert and oriented X 3, No acute distress - HEENT HEENT: Other (Multiple broken and carious teeth. Very mild facial swelling focusing from a left maxillary canine which is rotted almost down to the gum. There is no gingival abscess, trismus.) - Neuro Neuro: Alert and oriented X 3 Results - Vitals Vitals: Vital Signs - 24 hr 04/04/19 22:45 Temperature 36.8 C Heart Rate 106 H Respiratory 17 Rate Blood Pressure 154/96 H O2 Saturation 99 Oxygen O2 Source Room air Departure - Departure Disposition: Home, Self Care Clinical Impression: Dental abscess Condition: Good Record reviewed to determine appropriate education?: Yes Instructions: ED Abscess Dental Prescriptions: Clindamycin HCl [Clindamycin 300MG CAP] 300 mg PO Q6H #40 capsule Comments: It is very important that you follow-up with a dentist. When it comes to dental problems like yours, the emergency department can only offer a short-term solution to your long-term problem. A couple of low cost options for dental care include: [facility] in [place], calls [phone] for an appointment Or [facility] in [place], call [phone] for an appointment. Your blood pressure was elevated today on check into the emergency department. This does not mean that you have hypertension, it is a common phenomenon to come to the emergency department and have elevated blood pressure. I recommend that you see your primary care physician within the week to have it rechecked when you are feeling better.
== END 2019-04-04 23:21 | disposition home or self-care (01) ==
LOC: ED 22:37
DX: K04.7 Periapical abscess without sinus (principal); K02.9 Dental caries, unspecified; S02.5XXA Fracture of tooth (traumatic), initial encounter for closed fracture; X58.XXXA Exposure to other specified factors, initial encounter; R03.0 Elevated blood-pressure reading, without diagnosis of hypertension; F17.200 Nicotine dependence, unspecified, uncomplicated
CPT/HCPCS: 99282; 99283; A9270

== ENCOUNTER 2019-05-19 12:52 | Outpatient (CLI) | payer MEDICAID ==
[2019-05-19 13:14] LABS: CALCIUM 9.8 mg/dL (8.5-10.3); CREATININE 0.7 mg/dL (0.4-1.0)
== END 2019-05-19 12:53 | disposition home or self-care (01) ==
LOC: LAB 12:52
PROVIDERS: ATTEND Physician Assistant Medical
DX: Z87.448 Personal history of other diseases of urinary system (principal)
CPT/HCPCS: 36415; 80048

== ENCOUNTER 2019-05-29 13:19 | Outpatient (CLI) | payer MEDICAID ==
[2019-05-29] MEDS ORDERED: GADOBUTROL 10 MMOL/10 ML VIAL ONE (13:42)
[2019-05-29] MEDS ORDERED: GADOBUTROL 10 MMOL/10 ML VIAL IVP ONE (14:12)
--- NOTE | 2019-05-29 14:50 | MRI Report ---
Reason: BILAT NUMBNESS AND TINGLING OF ARMS AND LEGS Procedure Date: 05/29/2019 Accession Number: [id number] / [id number] Procedure: MRI - Brain W/WO CPT Code: FULL RESULT: EXAM: MRI BRAIN WITHOUT AND WITH CONTRAST EXAM DATE: 05/29/2019 02:32 PM. CLINICAL HISTORY: 34-year-old presenting with bilateral numbness and tingling of the arms and legs. Evaluate for intracranial pathology. COMPARISON: CT head 08/20/2018; CT cervical spine 06/09/2018. TECHNIQUE: Multiplanar, multisequence T1-weighted and fluid-sensitive MR sequences of the brain were performed before and after administration of intravenous contrast. Sequences optimized for routine evaluation. Other: None. IV Contrast: 10 cc Gadavist. FINDINGS: Brain Volume: Normal for age. Parenchyma: No acute hemorrhage, mass, or infarct. No white matter lesions identified. Small to moderate right frontal lobe developmental venous anomaly. No other abnormal postcontrast enhancement. Ventricles/Cisterns: No hydrocephalus. No abnormal extra-axial fluid collection or hemorrhage. Orbits: Symmetric and unremarkable. Sella [place]: The pituitary gland, cavernous sinuses, suprasellar cistern and optic chiasm are unremarkable. IAC: Symmetric and unremarkable. Vasculature: Normal signal flow void is seen in the major arterial structures at the skull base. The dural sinuses are patent and enhance normally. Sinuses: Tiny left maxillary mucosal retention cyst versus polyp. Mastoid air cells and middle ear cavities appear clear. Bones: No focal pathologic appearing marrow signal changes. Other: There is nonenhancing T2 hyperintense lesion seen posterior to the left ear measuring 6 x 9 mm (series 501, image 2) that may represent cyst. IMPRESSION: 1. No definite acute intracranial pathology seen; specifically, no acute infarct, acute intracranial hemorrhage, mass, hydrocephalus, or midline shift. No abnormal postcontrast enhancement. 2. No definite white matter lesion seen. 3. Incidentally seen is a small to moderate sized right frontal developmental venous anomaly. RADIA
== END 2019-05-29 13:20 | disposition home or self-care (01) ==
LOC: DI 13:19
PROVIDERS: ATTEND Physician Assistant Medical
DX: R20.2 Paresthesia of skin (principal); R20.0 Anesthesia of skin
CPT/HCPCS: 70553; A9585

== ENCOUNTER 2019-06-22 14:10 | Emergency (ER) | payer MEDICAID ==
--- NOTE | 2019-06-22 15:32 | ED Physician Documentation ---
History of Present Illness - Stated complaint Stated Complaint: BACK PX - Chief complaint Chief Complaint: Back Pain - Additonal information Additional information: This is a 34-year-old female with history of chronic back pain and fibromyalgia, who presents with increasing back discomfort. Patient has had this problem ongoing for years, but is gotten worse over last several weeks. She had x-rays obtained with her primary care provider recently which showed some spondylolisthesis. She is currently undergoing physical therapy and if this is not improving then she has follow-up to get an MRI. She has not yet started physical therapy. She has been taking Tylenol ibuprofen and this is not been effective in controlling her pain. She does occasionally get pain that radiates down her shoots down towards her left hip or down the back of her legs. She denies weakness or numbness in the legs. No difficulty urinating or defecating. 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) HEENT: Tonsil/Adenoidectomy - Present Medications Home Medications: Ambulatory Orders Medication Instructions Recorded Confirmed Albuterol Sulfate [Proventil Hfa 1 - 2 puffs INH Q4H PRN 01/06/19 01/06/19 Inhaler] Hydrocodone/Acetaminophen 1 - 2 each PO Q6H PRN #14 tablet 01/06/19 [Hydrocodon-Acetaminophen 5-325] Sertraline [Zoloft] 25 mg PO DAILY 01/06/19 01/06/19 diphenhydrAMINE [Benadryl] 25 mg PO HS 01/06/19 01/06/19 Clindamycin HCl [Clindamycin 300MG 300 mg PO Q6H #40 capsule 04/04/19 CAP] Cyclobenzaprine [Flexeril] 10 mg PO TID PRN #20 tablet 06/22/19 Lidocaine Patch 5% [Lidoderm Patch] 1 each TOP DAILY PRN #7 patch 06/22/19 - Allergies Allergies/Adverse Reactions: Allergies Allergy/AdvReac Type Severity Reaction Status Date / Time codeine [Codeine] AdvReac Unknown Respiratory Verified 06/22/19 14:25 naproxen AdvReac Unknown Respiratory Verified 06/22/19 14:25 pregabalin [From Lyrica] AdvReac Unknown Respiratory Verified 06/22/19 14:25 - Social History Does the pt smoke?: Yes Smoking Status: Current every day smoker Does the pt drink ETOH?: No Does the pt have substance abuse?: No - Immunizations Immunizations are current?: Yes - POLST Patient has POLST: No PD ED PE NORMAL - Vitals Vital signs reviewed: Yes - General General: Alert and oriented X 3 - HEENT HEENT: Atraumatic - Cardiac Cardiac: Other (Regular rate and rhythm on my exam) - Respiratory Respiratory: No respiratory distress - Back Back: Other (No midline tenderness, however patient is tender in the paraspinous muscles in the lumbar spine and bilaterally. No overlying skin changes no crepitus or step-offs. Straight leg raise test on the left reproduces the pain in the back but is negative for shooting pain/sciatica) - Derm Derm: Normal color - Neuro Neuro: Alert and oriented X 3, No motor deficit, No sensory deficit Results - Vitals Vitals: Oxygen O2 Source Room air PD MEDICAL DECISION MAKING - ED course ED course: Pt presents with ongoing back pain. She was tachycardic in triage but had a normal rate in the high 80s on my exam. She had recent imaging with her PCP. She has no neurologic findings, no weakness or numbness, no bowel or bladder changes, no fever. No dysuria. She is ambulatory. Given her lack of red flags and her recent imaging, no further imaging indicated today. I discussed supportive care, prescribed flexeril and lidocaine patches, reviewed worrisome symptoms that should prompt return to the ED, and patient was discharged home. Departure - Departure Disposition: 01 Home, Self Care Clinical Impression: Back pain Qualifiers: Back pain location: low back pain Chronicity: acute Back pain laterality: unspecified Sciatica presence: with sciatica Sciatica laterality: sciatica laterality unspecified Qualified Code(s): M54.40 - Lumbago with sciatica, unspecified side Condition: Good Instructions: ED Neck Back Pain General Follow-Up: Your,PCP [Other] - Within 1 week Prescriptions: Cyclobenzaprine [Flexeril] 10 mg PO TID PRN #20 tablet PRN Reason: Spasms Lidocaine Patch 5% [Lidoderm Patch] 1 each TOP DAILY PRN #7 patch PRN Reason: Pain Comments: You were seen today for back pain. Please continue to follow-up with your primary care provider closely on this. You may try the lidocaine patches and the Flexeril in addition to Tylenol and ibuprofen. I recommend taking no more than 800 mg of ibuprofen every 6 hours and no more than 650 mg of Tylenol every 6 hours. If you are developing a fever, weakness or numbness in your legs, difficulty using the bathroom (urinating or defecating), or other concerning symptoms, return to the emergency department. Discharge Date/Time: 06/22/19 16:52
[2019-06-22] MEDS ORDERED: oxyCODONE 5 MG TABLET PO STA ×2 (16:01→16:03)
[2019-06-22 16:53] VITALS: BP 138/96
== END 2019-06-22 16:52 | disposition home or self-care (01) ==
LOC: ED 14:10
DX: M54.40 Lumbago with sciatica, unspecified side (principal); R00.0 Tachycardia, unspecified; M79.7 Fibromyalgia; F17.200 Nicotine dependence, unspecified, uncomplicated
CPT/HCPCS: 99282; 99284; A9270

== ENCOUNTER 2019-07-28 19:44 | Emergency (ER) | payer MEDICAID ==
--- NOTE | 2019-07-28 21:17 | ED Physician Documentation ---
PD HPI BACK PAIN - Stated complaint Stated Complaint: BACK PX - Chief complaint Chief Complaint: Back Pain - History obtained from History obtained from: Patient - History of Present Illness Timing - onset: How many weeks ago (2) Timing - duration: Weeks (2) Timing - details: Gradual onset, Still present, Waxing and waning Location: Lower, Right Quality: Pain, Spasm Associated symptoms: Numbness (intermittently on right lateral foot). No: Fever, Weakness Improves with: Rest. No: Meds Worsened by: Movement, Palpation Contributing factors: Lifting Similar symptoms before: Diagnosis (low back pain exac intermittently) Review of Systems Constitutional: denies: Fever, Chills Nose: denies: Rhinorrhea / runny nose, Congestion Throat: denies: Sore throat Cardiac: denies: Chest pain / pressure Respiratory: denies: Dyspnea, Cough GI: denies: Abdominal Pain, Nausea, Vomiting : denies: Dysuria, Frequency Skin: denies: Rash, Lesions Neurologic: denies: Focal weakness PD PAST MEDICAL HISTORY - Past Medical History Cardiovascular: None Respiratory: Asthma Neuro: Migraines Endocrine/Autoimmune: None GI: None 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 : None HEENT: None Psych: None Musculoskeletal: Fibromyalgia, Chronic back pain Derm: None - Past Surgical History 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) HEENT: Tonsil/Adenoidectomy - Present Medications Home Medications: Ambulatory Orders Medication Instructions Recorded Confirmed Albuterol Sulfate [Proventil Hfa 1 - 2 puffs INH Q4H PRN 01/06/19 01/06/19 Inhaler] Hydrocodone/Acetaminophen 1 - 2 each PO Q6H PRN #14 tablet 01/06/19 [Hydrocodon-Acetaminophen 5-325] Sertraline [Zoloft] 25 mg PO DAILY 01/06/19 01/06/19 diphenhydrAMINE [Benadryl] 25 mg PO HS 01/06/19 01/06/19 Clindamycin HCl [Clindamycin 300MG 300 mg PO Q6H #40 capsule 04/04/19 CAP] Cyclobenzaprine [Flexeril] 10 mg PO TID PRN #20 tablet 06/22/19 Lidocaine Patch 5% [Lidoderm Patch] 1 each TOP DAILY PRN #7 patch 06/22/19 Ibuprofen [Motrin] 600 mg PO TID PRN #20 tab 07/28/19 Oxycodone HCl/Acetaminophen 1 each PO Q4H PRN #20 tablet 07/28/19 [Percocet 7.5-325 mg Tablet] Tizanidine HCl 4 mg PO TID PRN #25 capsule 07/28/19 dexAMETHasone [Decadron] 4 mg PO DAILY #7 tablet 07/28/19 - Allergies Allergies/Adverse Reactions: Allergies Allergy/AdvReac Type Severity Reaction Status Date / Time codeine [Codeine] AdvReac Unknown Respiratory Verified 07/28/19 19:56 naproxen AdvReac Unknown Respiratory Verified 07/28/19 19:56 pregabalin [From Lyrica] AdvReac Unknown Respiratory Verified 07/28/19 19:56 - Social History Does the pt smoke?: Yes Smoking Status: Current every day smoker Does the pt drink ETOH?: No Does the pt have substance abuse?: No - Immunizations Immunizations are current?: Yes - POLST Patient has POLST: No PD ED PE NORMAL - Vitals Vital signs reviewed: Yes - General General: Alert and oriented X 3, Well developed/nourished, Other (seems uncomfortable, guarded ROM of the back. ) - Cardiac Cardiac: RRR, No murmur - Respiratory Respiratory: Clear bilaterally - Abdomen Abdomen: Soft, Non tender - Back Back: No CVA TTP, No spinal TTP (tender right and left paralumbar muscles. No rash nor redness. No vertebral tenderness to percussion.) - Derm Derm: Normal color, Warm and dry - Neuro Neuro: Alert and oriented X 3, No motor deficit, Normal speech, Other (normal knee reflexes). No: No sensory deficit (decreased sensation lateral right foot. Some decrease medial left lower leg, but foot okay. ) Results - Vitals Vitals: Vital Signs - 24 hr 07/28/19 07/28/19 07/28/19 21:19 22:01 22:33 Temperature 37.1 C Heart Rate 112 H Respiratory 17 20 16 Rate Blood Pressure 155/106 H O2 Saturation 99 07/28/19 22:40 Temperature 37.1 C Heart Rate 105 H Respiratory 16 Rate Blood Pressure 139/94 H O2 Saturation 96 Oxygen O2 Source Room air PD MEDICAL DECISION MAKING - ED course Complexity details: considered differential (prior back pain problems intermittently, with exac after lifting/moving boxes. No red flags noted. ), d/w patient Departure - Departure Disposition: 01 Home, Self Care Clinical Impression: Low back pain Qualifiers: Chronicity: acute Back pain laterality: unspecified Sciatica presence: unspecified whether sciatica present Qualified Code(s): M54.5 - Low back pain Condition: Stable Record reviewed to determine appropriate education?: Yes Instructions: ED Low Back Pain Injury Follow-Up: Dominique Donald PA-C [Primary Care Provider] - Prescriptions: dexAMETHasone [Decadron] 4 mg PO DAILY #7 tablet Ibuprofen [Motrin] 600 mg PO TID PRN #20 tab PRN Reason: Pain Oxycodone HCl/Acetaminophen [Percocet 7.5-325 mg Tablet] 1 each PO Q4H PRN #20 tablet PRN Reason: Pain Tizanidine HCl 4 mg PO TID PRN #25 capsule PRN Reason: Spasms Comments: Heat and gentle stretching for the back. Anti-inflammatories such as ibuprofen 2-3 times a day. Also Decadron steroid anti-inflammatory daily for a week. Muscle relaxant tizanidine if needed for spasms. Add Tylenol or Percocet if needed for pain. Follow-up with your primary if not improving well over the next several days return as needed. Discharge Date/Time: 07/28/19 22:43
[2019-07-28] MEDS ORDERED: KETOROLAC 60 MG/2 ML VIAL IM STA (21:50)
[2019-07-28] MEDS ORDERED: oxyCODONE/ACET 5/325 Prepack 4 PO STA (21:50)
[2019-07-28] MEDS ORDERED: ACETAMINOPHEN 325 MG TABLET PO STA (21:50)
[2019-07-28 22:42] VITALS: BP 139/94
== END 2019-07-28 22:43 | disposition home or self-care (01) ==
LOC: ED 19:44
DX: M54.5 Low back pain (principal); F17.200 Nicotine dependence, unspecified, uncomplicated
CPT/HCPCS: 96372; 99283; 99284; A9270

== ENCOUNTER 2019-08-24 17:37 | Emergency (ER) | payer MEDICAID ==
--- NOTE | 2019-08-24 18:02 | ED Physician Documentation ---
History of Present Illness - Stated complaint Stated Complaint: ELEVATED HEART RATE X2DAYS - Chief complaint Chief Complaint: Cardiac - History obtained from History obtained from: Patient - History of Present Illness Pain level max: 8 Pain level now: 6 - Additonal information Additional information: 34-year-old female presents to the emergency department with several complaints. The first is that she has had a higher heart rate than usual over the past several days. The second is chest tightness, she states that this improved with her albuterol inhaler. The third is chronic back pain, seems to be worsening. She states she had a single episode of incontinence approximately 2 to 3 weeks ago. None since. Occasionally radiates down the left hip. She states occasionally she has pain in the right calf as well. Currently these are not bothering her. No fevers. No cough. She states she has been feeling generally unwell. She also states that she feels anxious at times. Nothing makes it better or worse. No recent travel. No recent surgery. No history of blood clots. 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 : None HEENT: None Psych: None Musculoskeletal: Fibromyalgia, Chronic back pain Derm: None - Past Surgical History Past Surgical History: Yes /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: LEEP (Cervical surgery) HEENT: Tonsil/Adenoidectomy - Present Medications Home Medications: Ambulatory Orders Medication Instructions Recorded Confirmed Albuterol Sulfate [Proventil Hfa 1 - 2 puffs INH Q4H PRN 01/06/19 01/06/19 Inhaler] Hydrocodone/Acetaminophen 1 - 2 each PO Q6H PRN #14 tablet 01/06/19 [Hydrocodon-Acetaminophen 5-325] Sertraline [Zoloft] 25 mg PO DAILY 01/06/19 01/06/19 diphenhydrAMINE [Benadryl] 25 mg PO HS 01/06/19 01/06/19 Clindamycin HCl [Clindamycin 300MG 300 mg PO Q6H #40 capsule 04/04/19 CAP] Cyclobenzaprine [Flexeril] 10 mg PO TID PRN #20 tablet 06/22/19 Lidocaine Patch 5% [Lidoderm Patch] 1 each TOP DAILY PRN #7 patch 06/22/19 Ibuprofen [Motrin] 600 mg PO TID PRN #20 tab 07/28/19 Oxycodone HCl/Acetaminophen 1 each PO Q4H PRN #20 tablet 07/28/19 [Percocet 7.5-325 mg Tablet] Tizanidine HCl 4 mg PO TID PRN #25 capsule 07/28/19 dexAMETHasone [Decadron] 4 mg PO DAILY #7 tablet 07/28/19 - Allergies Allergies/Adverse Reactions: Allergies Allergy/AdvReac Type Severity Reaction Status Date / Time codeine [Codeine] AdvReac Unknown Respiratory Verified 08/24/19 17:44 naproxen AdvReac Unknown Respiratory Verified 08/24/19 17:44 pregabalin [From Lyrica] AdvReac Unknown Respiratory Verified 08/24/19 17:44 - Social History Does the pt smoke?: Yes Smoking Status: Current every day smoker Does the pt drink ETOH?: No Does the pt have substance abuse?: No - Immunizations Immunizations are current?: Yes - POLST Patient has POLST: No PD ED PE NORMAL - Vitals Vital signs reviewed: Yes - General General: Alert and oriented X 3, No acute distress, Well developed/nourished - HEENT HEENT: Atraumatic, PERRL, Ears normal, Moist mucous membranes, Pharynx benign - Neck Neck: Supple, no meningeal sign - Cardiac Cardiac: No murmur, Strong equal pulses, Other (Tachycardic) - Respiratory Respiratory: No respiratory distress, Clear bilaterally - Abdomen Abdomen: Soft, Non tender, Non distended - Back Back: No spinal TTP - Derm Derm: Warm and dry, No rash - Extremities Extremities: No edema, No calf tenderness / cord, Other (Normal bilateral lower extremity patellar and ankle jerk reflexes. Normal great toe extension bilaterally. 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, No motor deficit, No sensory deficit - Psych Psych: Normal mood, Normal affect Results - Vitals Vitals: Vital Signs - 24 hr 08/24/19 08/24/1908/24/20 17:45 18:14 18:30 Temperature 36.7 C Heart Rate 146 H 113 H 105 H Respiratory 26 H 14 12 Rate Blood Pressure 151/116 H 156/113 H 158/113 H O2 Saturation 99 100 95 08/24/19 20:24 Temperature Heart Rate 112 H Respiratory 28 H Rate Blood Pressure 144/96 H O2 Saturation 100 Oxygen O2 Source Room air - EKG (time done) 1751 Rate: Rate (enter#) (121) Rhythm: Sinus tachycardia [place]: Normal Intervals: Normal MA QRS: Normal Ischemia: Normal ST segments - Labs Labs: Laboratory Tests 08/24/19 08/24/19 08/24/19 17:48 18:02 18:02 WBC 12.6 H RBC 4.77 Hgb 14.5 Hct 44.0 MCV 92.2 MCH 30.4 MCHC 33.0 RDW 13.5 Plt Count 310 MPV 8.6 Neut # (Auto) 6.3 Lymph # (Auto) 5.4 H [place] # (Auto) 0.7 Eos # (Auto) 0.1 Baso # (Auto) 0.1 Absolute Nucleated RBC 0.00 Band Neuts % (Manual) Not Reportable Abnorm Lymph % (Manual) Not Reportable Nucleated RBC % 0.0 Neutrophils # (Manual) Not Reportable Lymphocytes # (Manual) Not Reportable Monocytes # (Manual) Not Reportable Eosinophils # (Manual) Not Reportable Basophils # (Manual) Not Reportable Differential Comment MANUAL=AUTO DIFF Platelet Estimate NORMAL (130-450,000) Platelet Morphology NORMAL APPEARANCE RBC Morph Micro Appear NORMAL APPEARANCE D-Dimer < 200.0 L Sodium 136 Potassium 3.4 L Chloride 99 L Carbon Dioxide 24 Anion Gap 13.0 BUN 13 Creatinine 0.7 Estimated GFR (MDRD) 96 Glucose 110 H Calcium 9.1 Total Bilirubin 0.7 AST 20 ALT 30 Alkaline Phosphatase 50 Troponin I High Sens Total Protein 7.4 Albumin 4.2 Globulin 3.2 Albumin/Globulin Ratio 1.3 Lipase 32 Urine Color Urine Clarity Urine pH Ur Specific [place] Urine Protein Urine Glucose (UA) Urine Ketones Urine Occult Blood Urine Nitrite Urine Bilirubin Urine Urobilinogen Ur Leukocyte Esterase Ur Microscopic Review Urine Culture Comments Urine HCG, Qual Urine Opiates Screen Ur Oxycodone Screen Urine Methadone Screen Ur Propoxyphene Screen Ur Barbiturates Screen Ur Tricyclics Screen Ur Phencyclidine Scrn Ur Amphetamine Screen U Methamphetamines Scrn U Benzodiazepines Scrn Urine Cocaine Screen U Cannabinoids Screen 08/24/19 08/24/19 08/24/19 18:02 19:10 19:10 WBC RBC Hgb Hct MCV MCH MCHC RDW Plt Count MPV Neut # (Auto) Lymph # (Auto) [place] # (Auto) Eos # (Auto) Baso # (Auto) Absolute Nucleated RBC Band Neuts % (Manual) Abnorm Lymph % (Manual) Nucleated RBC % Neutrophils # (Manual) Lymphocytes # (Manual) Monocytes # (Manual) Eosinophils # (Manual) Basophils # (Manual) Differential Comment Platelet Estimate Platelet Morphology RBC Morph Micro Appear D-Dimer Sodium Potassium Chloride Carbon Dioxide Anion Gap BUN Creatinine Estimated GFR (MDRD) Glucose Calcium Total Bilirubin AST ALT Alkaline Phosphatase Troponin I High Sens < 2.3 L Total Protein Albumin Globulin Albumin/Globulin Ratio Lipase Urine Color LT. YELLOW Urine Clarity CLEAR Urine pH 7.0 Ur Specific [place] <=1.005 Urine Protein NEGATIVE Urine Glucose (UA) NEGATIVE Urine Ketones NEGATIVE Urine Occult Blood NEGATIVE Urine Nitrite NEGATIVE Urine Bilirubin NEGATIVE Urine Urobilinogen 0.2 (NORMAL) Ur Leukocyte Esterase NEGATIVE Ur Microscopic Review NOT INDICATED Urine Culture Comments NOT INDICATED Urine HCG, Qual NEGATIVE Urine Opiates Screen NEGATIVE Ur Oxycodone Screen NEGATIVE Urine Methadone Screen NEGATIVE Ur Propoxyphene Screen NEGATIVE Ur Barbiturates Screen NEGATIVE Ur Tricyclics Screen NEGATIVE Ur Phencyclidine Scrn NEGATIVE Ur Amphetamine Screen NEGATIVE U Methamphetamines Scrn NEGATIVE U Benzodiazepines Scrn NEGATIVE Urine Cocaine Screen NEGATIVE U Cannabinoids Screen NEGATIVE - Rads (name of study) cxr Radiology: Prelim report reviewed, EMP read contemporaneously, See rad report (No acute disease) PD MEDICAL DECISION MAKING - ED course Complexity details: reviewed results, re-evaluated patient, considered differential (No ST elevation [place], no aortic dissection, no PE, no tension pneumothorax, no aortic aneurysm), d/w patient ED course: 34-year-old female with tachycardia of unclear etiology. Heart rate decreased significantly with Ativan. Negative d-dimer. Negative troponin. Feels better after IV fluids as well. No evidence of cauda equina or epidural abscess. No evidence of sepsis. No fevers. We will have her follow-up with her doctor for further care. Patient counseled regarding signs and symptoms for which I be lieve and urgent re-evaluation would be necessary. Patient with good understanding of and agreement to plan and is comfortable going home at this time This document was made in part using voice recognition software. While efforts are made to proofread this document, sound alike and grammatical errors may occur. Patient has a history of tachycardia in the past as well. Departure - Departure Disposition: 01 Home, Self Care Clinical Impression: Tachycardia, Dehydration, Anxiety Back pain Qualifiers: Back pain location: low back pain Chronicity: chronic Back pain laterality: bilateral Sciatica presence: without sciatica Qualified Code(s): M54.5 - Low back pain Condition: Good Instructions: ED Dehydration Follow-Up: Afsaneh Cervantes ND, LM [Primary Care Provider] - Within 1 week Comments: Continue your current medications at home. Follow-up with your doctor for further care. Return if you worsen. It is recommended that you follow-up with your doctor for an MRI of your back. Discharge Date/Time: 08/24/19 20:43
[2019-08-24 18:06] LABS: BASOPHILS # (AUTO) 0.1 10^3/uL (0.0-0.1); BASOPHILS % (AUTO) 0.4 %; EOSINOPHILS # (AUTO) 0.1 10^3/uL (0.0-0.7); EOSINOPHILS % (AUTO) 0.8 %; HGB - HEMOGLOBIN 14.5 g/dL (12.0-16.0); LYMPHOCYTES # (AUTO) 5.4 10^3/uL (1.5-3.5); MEAN CORPUSCULAR HEMOGLOBIN 30.4 pg (27.0-31.0); MEAN CORPUSCULAR VOLUME 92.2 fL (81.0-99.0); MEAN PLATELET VOLUME 8.6 fL (7.9-10.8); MONOCYTES # (AUTO) 0.7 10^3/uL (0.0-1.0); MONOCYTES % (AUTO) 5.8 %; NEUTROPHILS # (AUTO) 6.3 10^3/uL (1.5-6.6); NEUTROPHILS % (AUTO) 49.6 %; PLT - PLATELET COUNT 310 10^3/uL (130-450); RED BLOOD COUNT 4.77 10^6/uL (4.20-5.40); RED CELL DISTRIBUTION WIDTH 13.5 % (12.0-15.0); WHITE BLOOD COUNT 12.6 x10^3/uL (4.8-10.8)
[2019-08-24] MEDS ORDERED: SODIUM CHLORIDE 0.9% 1,000 ML IV ONE (18:17)
[2019-08-24] MEDS ORDERED: LORazepam 2 MG/ML VIAL IVP STA (18:17)
[2019-08-24 18:25] LABS: ALBUMIN 4.2 g/dL (3.2-5.5); ALBUMIN/GLOBULIN RATIO 1.3 (1.0-2.2); BILIRUBIN,TOTAL 0.7 mg/dL (0.2-1.0); CALCIUM 9.1 mg/dL (8.5-10.3); CREATININE 0.7 mg/dL (0.4-1.0); TOTAL PROTEIN 7.4 g/dL (6.7-8.2)
--- NOTE | 2019-08-24 18:53 | XRAY Report ---
Reason: Chest pain Procedure Date: 08/24/2019 Accession Number: [id number] / [id number] Procedure: XR - Chest 1 View X-Ray CPT Code: 67786 Final Report FULL RESULT: EXAM: CHEST RADIOGRAPHY EXAM DATE: 08/24/2019 06:44 PM. CLINICAL HISTORY: Chest pain. COMPARISON: CHEST 2 VIEW 07/02/2018 8:54 PM. TECHNIQUE: 1 view. FINDINGS: Lungs/Pleura: Clear. No effusion or pneumothorax. Mediastinum: Within exam limitations, the cardiomediastinal contour is normal. Upper lobe vessels not distended. Other: None. IMPRESSION: No acute disease. RADIA
[2019-08-24 19:09] LABS: RBC MORPHOLOGY (MULTIPLE) NORMAL APPEARANCE (NORMAL)
[2019-08-24 19:10] LABS: DIFFERENTIAL COMMENT MANUAL=AUTO DIFF; PLATELET ESTIMATE, MANUAL NORMAL (130-450,000) (NORMAL); PLATELET MORPHOLOGY NORMAL APPEARANCE (NORMAL)
[2019-08-24 19:25] LABS: MUDS CUTOFF CONCENTRATIONS CUTOFF CONC BELOW:
[2019-08-24 19:31] LABS: BILIRUBIN,URINE NEGATIVE (NEGATIVE); GLUCOSE, URINE (UA) NEGATIVE (NEGATIVE); KETONES,URINE (UA) NEGATIVE (NEGATIVE); LEUKOCYTE ESTERASE, URINE NEGATIVE (NEGATIVE); NITRITE,URINE NEGATIVE (NEGATIVE); OCCULT BLOOD,URINE NEGATIVE (NEGATIVE); PROTEIN,URINE NEGATIVE (NEGATIVE); UROBILINOGEN,URINE 0.2 (NORMAL) E.U./dL (NORMAL)
[2019-08-24 19:33] LABS: CLARITY,URINE CLEAR (CLEAR); HCG UR QUAL NEGATIVE
[2019-08-24 19:41] LABS: AMPHETAMINE SCREEN,URINE NEGATIVE (NEGATIVE); BENZODIAZEPINES SCREEN, URINE NEGATIVE (NEGATIVE); COCAINE SCREEN URINE NEGATIVE (NEGATIVE); METHADONE SCREEN, URINE NEGATIVE (NEGATIVE); METHAMPHETAMINES SCREEN, URINE NEGATIVE (NEGATIVE); OPIATE SCREEN, URINE NEGATIVE (NEGATIVE); OXYCODONE SCREEN, URINE NEGATIVE (NEGATIVE); PROPOXYPHENE SCREEN, URINE NEGATIVE (NEGATIVE); TRICYCLIC ANTIDEPRESSANT,URINE NEGATIVE (NEGATIVE)
[2019-08-24 20:24] VITALS: BP 144/96
== END 2019-08-24 20:43 | disposition home or self-care (01) ==
LOC: ED 17:37
DX: R00.0 Tachycardia, unspecified (principal); R07.89 Other chest pain; E86.0 Dehydration; F41.9 Anxiety disorder, unspecified; M54.5 Low back pain; G89.29 Other chronic pain; F17.200 Nicotine dependence, unspecified, uncomplicated
CPT/HCPCS: 36415; 71045; 80053; 80306; 81003; 81025; 83690; 84484; 85025; 85379; 93005; 96374; 99284; J2060; 81001; 87086

== ENCOUNTER 2019-10-14 16:22 | Emergency (ER) | payer MEDICAID ==
[2019-10-14] MEDS ORDERED: SODIUM CHLORIDE 0.9% 1,000 ML IV ONE (16:43)
--- NOTE | 2019-10-14 16:49 | ED Physician Documentation ---
PD HPI URI - Stated complaint Stated Complaint: COUGH, SORE THROAT - Chief complaint Chief Complaint: Heent - History obtained from History obtained from: Patient - History of Present Illness Timing - onset: How many weeks ago (3) Timing duration: Weeks (3) Timing details: Gradual onset, Waxing and waning Pain level max: 0 Pain level now: 0 Associated symptoms: Nasal congestion, Rhinorrhea, Sore throat, Dry cough. No: Fever, Chills, Hemoptysis, Chest pain, Dyspnea Contributing factors: Sick contact (Patient states that everyone at home is sick with same). No: Travel, Immunocompromised, Unimmunized, COPD / asthma Improves by: Rest Worsened by: Activity Recently seen: Not recently seen - Additional information Additional information: Patient was started on lisinopril 3 weeks ago Review of Systems Constitutional: denies: Fever, Chills Ears: denies: Ear pain Nose: reports: Rhinorrhea / runny nose, Congestion Throat: reports: Sore throat Respiratory: reports: Cough (Dry) GI: denies: Vomiting, Diarrhea Skin: denies: Rash Musculoskeletal: denies: Neck pain, Back pain Neurologic: denies: Headache PD PAST MEDICAL HISTORY - Past Medical History Past Medical History: Yes Cardiovascular: Hypertension, High cholesterol Respiratory: Asthma Neuro: Migraines Endocrine/Autoimmune: None GI: None 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 HEENT: None Psych: None Musculoskeletal: Fibromyalgia, Chronic back pain Derm: None - Past Surgical History Past Surgical History: Yes /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: LEEP (Cervical surgery) HEENT: Tonsil/Adenoidectomy - Present Medications Home Medications: Ambulatory Orders Medication Instructions Recorded Confirmed Albuterol Sulfate [Proventil Hfa 1 - 2 puffs INH Q4H PRN 01/06/19 10/14/19 Inhaler] diphenhydrAMINE [Benadryl] 25 mg PO HS 01/06/19 10/14/19 Ibuprofen [Motrin] 600 mg PO TID PRN #20 tab 07/28/19 10/14/19 Tizanidine HCl 4 mg PO TID PRN #25 capsule 07/28/19 10/14/19 Albuterol Sulf [Ventolin Hfa 1 - 2 puffs INH Q4HR PRN #1 inhaler 10/14/19 Inhaler] Benzonatate [Tessalon Perle] 100 - 200 mg PO TID PRN #30 capsule 10/14/19 Cetirizine HCl/Pseudoephedrine 1 each PO BID PRN #30 tab.er.12h 10/14/19 [Zyrtec-D Tablet] Doxycycline Hyclate 100 mg PO BID #20 capsule 10/14/19 Lisinopril [Zestril] 5 mg PO DAILY 10/14/19 10/14/19 Varenicline Tartrate [Chantix] 1 mg PO BID 10/14/19 10/14/19 - Allergies Allergies/Adverse Reactions: Allergies Allergy/AdvReac Type Severity Reaction Status Date / Time codeine [Codeine] AdvReac Unknown Respiratory Verified 10/14/19 16:27 naproxen AdvReac Unknown Respiratory Verified 10/14/19 16:27 pregabalin [From Lyrica] AdvReac Unknown Respiratory Verified 10/14/19 16:27 - Social History Does the pt smoke?: Yes Smoking Status: Current every day smoker Does the pt drink ETOH?: No Does the pt have substance abuse?: No - Immunizations Immunizations are current?: Yes - POLST Patient has POLST: No PD ED PE NORMAL - Vitals Vital signs reviewed: Yes - General General: Alert and oriented X 3, No acute distress - HEENT HEENT: Ears normal, Moist mucous membranes, Pharynx benign - Neck Neck: Supple, no meningeal sign, No adenopathy - Cardiac Cardiac: RRR, Strong equal pulses - Respiratory Respiratory: No respiratory distress, Clear bilaterally - Abdomen Abdomen: Soft, Non tender, Non distended - Derm Derm: Warm and dry, No rash - Neuro Neuro: Alert and oriented X 3 - Psych Psych: Normal mood, Normal affect Results - Vitals Vitals: Vital Signs - 24 hr 10/14/19 10/14/19 10/14/19 16:27 16:36 17:01 Temperature 37.0 C 37.1 C Heart Rate 156 H 141 H 128 H Respiratory 18 24 24 Rate Blood Pressure 138/89 H 143/99 H 133/85 H O2 Saturation 98 100 98 Oxygen O2 Source Room air - Labs Labs: Laboratory Tests 10/14/19 10/14/19 16:50 16:50 WBC 8.6 RBC 4.67 Hgb 14.3 Hct 41.9 MCV 89.7 MCH 30.6 MCHC 34.1 RDW 12.6 Plt Count 370 MPV 8.6 Neut # (Auto) 5.4 Lymph # (Auto) 2.6 [place] # (Auto) 0.5 Eos # (Auto) 0.1 Baso # (Auto) 0.0 Absolute Nucleated RBC 0.00 Nucleated RBC % 0.0 Sodium 136 Potassium 3.6 Chloride 105 Carbon Dioxide 21 Anion Gap 10.0 BUN 13 Creatinine 0.8 Estimated GFR (MDRD) 82 L Glucose 130 H Calcium 9.1 Total Bilirubin 0.6 AST 18 ALT 19 Alkaline Phosphatase 57 Total Protein 7.8 Albumin 4.1 Globulin 3.7 Albumin/Globulin Ratio 1.1 Lipase 28 - Rads (name of study) cxr Radiology: Prelim report reviewed, EMP read contemporaneously, See rad report (No acute abnormality) PD MEDICAL DECISION MAKING - ED course Complexity details: reviewed results, re-evaluated patient, considered differential, d/w patient ED course: Patient has chronic tachycardia, a review of her ER visits over the last 9 months reveals her average heart rate is between 110 and 140. No discrete pneumonia on chest x-ray. We will place her on doxycycline for bronchitis. She is well-appearing, nontoxic. Heart rate decreased. Patient feels better. She is almost out of her inhaler and we will prescribe this for her. We will also prescribe cough medication and decongestants. Patient counseled regarding signs and symptoms for which I believe and urgent re- evaluation would be necessary. Patient with good understanding of and agreement to plan and is comfortable going home at this time This document was made in part using voice recognition software. While efforts are made to proofread this document, sound alike and grammatical errors may occur. Departure - Departure Disposition: 01 Home, Self Care Clinical Impression: Bronchitis Condition: Good Instructions: ED Upper Resp Infec Abx Tx Follow-Up: Afsaneh Cervantes, HOLLIE, LM [Primary Care Provider] - Within 1 week Prescriptions: Albuterol Sulf [Ventolin Hfa Inhaler] 1 - 2 puffs INH Q4HR PRN #1 inhaler PRN Reason: Shortness Of Air/Wheezing Benzonatate [Tessalon Perle] 100 - 200 mg PO TID PRN #30 capsule PRN Reason: Cough Cetirizine HCl/Pseudoephedrine [Zyrtec-D Tablet] 1 each PO BID PRN #30 tab .er.12h PRN Reason: nasal congestion Doxycycline Hyclate 100 mg PO BID #20 capsule Comments: Drink plenty of fluids and rest. Return if you worsen. Follow-up with your doc tor for further care. Take all antibiotics until gone. Use the inhaler as needed. This should improve over the next week.
[2019-10-14 16:56] LABS: BASOPHILS % (AUTO) 0.5 %; EOSINOPHILS # (AUTO) 0.1 10^3/uL (0.0-0.7); EOSINOPHILS % (AUTO) 0.7 %; HGB - HEMOGLOBIN 14.3 g/dL (12.0-16.0); LYMPHOCYTES # (AUTO) 2.6 10^3/uL (1.5-3.5); MEAN CORPUSCULAR HEMOGLOBIN 30.6 pg (27.0-31.0); MEAN CORPUSCULAR HGB CONC 34.1 g/dL (32.0-36.0); MEAN CORPUSCULAR VOLUME 89.7 fL (81.0-99.0); MEAN PLATELET VOLUME 8.6 fL (7.9-10.8); MONOCYTES # (AUTO) 0.5 10^3/uL (0.0-1.0); MONOCYTES % (AUTO) 5.2 %; NEUTROPHILS # (AUTO) 5.4 10^3/uL (1.5-6.6); NEUTROPHILS % (AUTO) 63.1 %; PLT - PLATELET COUNT 370 10^3/uL (130-450); RED BLOOD COUNT 4.67 10^6/uL (4.20-5.40); RED CELL DISTRIBUTION WIDTH 12.6 % (12.0-15.0); WHITE BLOOD COUNT 8.6 x10^3/uL (4.8-10.8)
[2019-10-14 17:07] LABS: ALBUMIN 4.1 g/dL (3.2-5.5); ALBUMIN/GLOBULIN RATIO 1.1 (1.0-2.2); BILIRUBIN,TOTAL 0.6 mg/dL (0.2-1.0); CALCIUM 9.1 mg/dL (8.5-10.3); CREATININE 0.8 mg/dL (0.4-1.0); TOTAL PROTEIN 7.8 g/dL (6.7-8.2)
[2019-10-14 17:08] VITALS: BP 133/85
[2019-10-14] MEDS ORDERED: BENZONATATE 100 MG CAPSULE PO STA (17:17)
--- NOTE | 2019-10-14 17:32 | XRAY Report ---
Reason: cough Procedure Date: 10/14/2019 Accession Number: [id number] / [id number] Procedure: XR - Chest 2 View X-Ray CPT Code: 79039 Final Report FULL RESULT: EXAM: CHEST RADIOGRAPHY EXAM DATE: 10/14/2019 05:08 PM. CLINICAL HISTORY: Cough. COMPARISON: CHEST 1 VIEW 08/24/2019 6:18 PM. TECHNIQUE: 2 views. FINDINGS: Lungs/Pleura: No focal opacities evident. No pleural effusion. No pneumothorax. Normal volumes. Mediastinum: Heart and mediastinal contours are unremarkable. Other: Mild dextroscoliosis in the thoracic spine. IMPRESSION: No acute cardiopulmonary disease seen. RADIA
== END 2019-10-14 17:42 | disposition home or self-care (01) ==
LOC: ED 16:22
DX: I10 Essential (primary) hypertension (principal); F17.210 Nicotine dependence, cigarettes, uncomplicated; J40 Bronchitis, not specified as acute or chronic
CPT/HCPCS: 36415; 71046; 80053; 83690; 85025; 96360; 99284; A9270

== ENCOUNTER 2019-10-17 16:02 | Outpatient (CLI) | payer MEDICAID | END 2019-10-17 16:03 | disposition home or self-care (01) | LOC: COV 16:02 | PROVIDERS: ATTEND Family Medicine | DX: R05 Cough (principal); R50.9 Fever, unspecified | CPT/HCPCS: 81599 ==

== ENCOUNTER 2019-11-14 15:01 | Emergency (ER) | payer MEDICAID ==
--- NOTE | 2019-11-14 15:34 | ED Physician Documentation ---
History of Present Illness - Stated complaint Stated Complaint: BACK / HIP PX - Chief complaint Chief Complaint: Back Pain - History obtained from History obtained from: Patient (36-year-old female comes in today for chief complaint of lower back pain, left hip pain ongoing for several days now. Worsening. She states that on Wednesday she was out helping her yard work bending over stooping and then developed pain shortly thereafter. The patient does have a chronic history of lower back pain. She has seen her PCP for this, who is referred her out to a pain specialist Dr. Woodruff in [place]. He is referred her up to have an MRI and x-ray of her lumbar spine which she had done late last month. She did have a follow-up appointment with him on October 29, this was canceled due to the current pandemic that is happening. She is awaiting a call back to schedule a telemedicine consultation with Dr. Woodruff. At this time she has not been prescribed any pain medicines. She does state that she has burning sensation/pain to the left lateral hip region, with some change in sensation to her left lateral foot, great toe, and arch foot. She denies any loss of bowel or bladder function. She also states that she has been taking Sudafed daily for "allergies". She attributes this, along with the nicotine to her increased heart rate and blood pressure today.) Review of Systems Constitutional: denies: Fever, Chills, Fatigue, Sweats Nose: denies: Rhinorrhea / runny nose, Congestion, Sinus pressure / pain Throat: denies: Sore throat, Swollen tonsils Cardiac: denies: Chest pain / pressure, Palpitations, Pedal edema, Calf pain GI: denies: Abdominal Pain, Nausea, Vomiting, Diarrhea : denies: Incontinent Skin: denies: Rash Musculoskeletal: reports: Back pain (Chronic back pain for several years.). 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: LEEP (Cervical surgery) HEENT: Tonsil/Adenoidectomy - Present Medications Home Medications: Ambulatory Orders Medication Instructions Recorded Confirmed Albuterol Sulfate [Proventil Hfa 1 - 2 puffs INH Q4H PRN 01/06/19 10/14/19 Inhaler] diphenhydrAMINE [Benadryl] 25 mg PO HS 01/06/19 10/14/19 Ibuprofen [Motrin] 600 mg PO TID PRN #20 tab 07/28/19 10/14/19 Tizanidine HCl 4 mg PO TID PRN #25 capsule 07/28/19 10/14/19 Albuterol Sulf [Ventolin Hfa 1 - 2 puffs INH Q4HR PRN #1 inhaler 10/14/19 Inhaler] Benzonatate [Tessalon Perle] 100 - 200 mg PO TID PRN #30 capsule 10/14/19 Cetirizine HCl/Pseudoephedrine 1 each PO BID PRN #30 tab.er.12h 10/14/19 [Zyrtec-D Tablet] Doxycycline Hyclate 100 mg PO BID #20 capsule 10/14/19 Lisinopril [Zestril] 5 mg PO DAILY 10/14/19 10/14/19 Varenicline Tartrate [Chantix] 1 mg PO BID 10/14/19 10/14/19 Gabapentin 300 mg PO BID #60 capsule 11/14/19 - Allergies Allergies/Adverse Reactions: Allergies Allergy/AdvReac Type Severity Reaction Status Date / Time codeine [Codeine] AdvReac Unknown Respiratory Verified 11/14/19 15:04 naproxen AdvReac Unknown Respiratory Verified 11/14/19 15:04 pregabalin [From Lyrica] AdvReac Unknown Respiratory Verified 11/14/19 15:04 - Social History Does the pt smoke?: Yes Smoking Status: Current every day smoker Does the pt drink ETOH?: No Does the pt have substance abuse?: No - Immunizations Immunizations are current?: Yes - POLST Patient has POLST: No PD ED PE NORMAL - General General: Alert and oriented X 3, Well developed/nourished - HEENT HEENT: Atraumatic, PERRL, EOMI - Neck Neck: No adenopathy - Cardiac Cardiac: RRR, No murmur - Respiratory Respiratory: No respiratory distress - Abdomen Abdomen: Soft, Non tender - Back Back: No CVA TTP - Derm Derm: Warm and dry, No rash - Extremities Extremities: No deformity, No tenderness to palpate, No edema, No calf tenderness / cord PD ED PE EXPANDED - Back Back: Limited ROM Results - Vitals Vitals: Vital Signs - 24 hr 11/14/19 11/14/19 11/14/19 15:04 15:22 16:07 Temperature 36.7 C Heart Rate 160 H 144 H 145 H Respiratory 18 24 17 Rate Blood Pressure 138/98 H 148/116 H 149/109 H O2 Saturation 98 100 98 11/14/19 17:09 Temperature Heart Rate 148 H Respiratory 15 Rate Blood Pressure 129/85 H O2 Saturation 100 Oxygen O2 Source Room air - Labs Labs: Laboratory Tests 11/14/19 11/14/19 15:29 15:29 Sodium 134 L Potassium 3.9 Chloride 102 Carbon Dioxide 25 Anion Gap 7.0 BUN 13 Creatinine 0.7 Estimated GFR (MDRD) 96 Glucose 98 Calcium 9.5 Total Bilirubin 0.7 AST 19 ALT 23 Alkaline Phosphatase 61 Troponin I High Sens < 2.3 L Total Protein 8.1 Albumin 4.9 Globulin 3.2 Albumin/Globulin Ratio 1.5 Lipase 27 Departure - Departure Disposition: 01 Home, Self Care Clinical Impression: Lumbago with sciatica, left side Qualifiers: Chronicity: chronic Back pain laterality: left Qualified Code(s): M54.42 - Lumbago with sciatica, left side Condition: Good Instructions: ED Back Care Tips, ED Sciatica Prescriptions: Gabapentin 300 mg PO BID #60 capsule Comments: You are on the right path to get your back pain properly managed. Continue to be persistent and followed up with Dr. Woodruff in [place] for pain control. I prescribed you gabapentin 300 mg tablets. And when she did take 1 tablet at night at bedtime for 3 days, then you may increase it to take once in the morning and once at night. Please be aware that this will make you lightheaded dizzy and drowsy so you may not want to take it in the morning or during the daytime for those reasons. This is just a bridge until he can get into see the pain specialist to get more definitive care and treatment for your back pain. As I discussed with you narcotic pain control is not what is needed for the pain that you are having. Again stop taking the Sudafed for your allergies, as this is making you have elevated blood pressure and heart rate. 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 Follow-up with your pain specialist within the next 1 to 2 weeks if possible.
[2019-11-14 15:51] LABS: ALBUMIN 4.9 g/dL (3.2-5.5); ALBUMIN/GLOBULIN RATIO 1.5 (1.0-2.2); BILIRUBIN,TOTAL 0.7 mg/dL (0.2-1.0); CALCIUM 9.5 mg/dL (8.5-10.3); CREATININE 0.7 mg/dL (0.4-1.0); TOTAL PROTEIN 8.1 g/dL (6.7-8.2)
[2019-11-14] MEDS ORDERED: HYDROcod/ACETAM 5/325 MG TABLET PO STA (15:57)
[2019-11-14 17:14] VITALS: BP 129/85
== END 2019-11-14 17:57 | disposition home or self-care (01) ==
LOC: ED 15:01
DX: M54.42 Lumbago with sciatica, left side (principal); I10 Essential (primary) hypertension
CPT/HCPCS: 36415; 80053; 83690; 84484; 93005; 99283; 99284; A9270

== ENCOUNTER 2020-05-15 13:00 | Emergency (ER) | payer MEDICAID ==
--- NOTE | 2020-05-15 13:35 | ED Physician Documentation ---
History of Present Illness - Stated complaint Stated Complaint: RIGHT EAR PAIN - Chief complaint Chief Complaint: Heent - History obtained from History obtained from: Patient - Additonal information Additional information: She has a cyst behind her right ear. It is painful. She has a history of multiple cysts elsewhere. Review of Systems Constitutional: reports: Reviewed and negative Ears: reports: Reviewed and negative Nose: reports: Reviewed and negative PD PAST MEDICAL HISTORY - Past Medical History Cardiovascular: Hypertension, High cholesterol, Arrhythmia Respiratory: Asthma Neuro: Migraines Endocrine/Autoimmune: None GI: None CHIEF MEDICAL TECHNOLOGIST: None : None HEENT: Chronic hearing loss Psych: None Musculoskeletal: Fibromyalgia, Chronic back pain Derm: None - Past Surgical History Past Surgical History: Yes /CHIEF MEDICAL TECHNOLOGIST: LEEP (Cervical surgery) HEENT: Tonsil/Adenoidectomy - Present Medications Home Medications: Ambulatory Orders Medication Instructions Recorded Confirmed Albuterol Sulfate [Proventil Hfa 1 - 2 puffs INH Q4H PRN 01/06/19 10/14/19 Inhaler] diphenhydrAMINE [Benadryl] 25 mg PO HS 01/06/19 10/14/19 Ibuprofen [Motrin] 600 mg PO TID PRN #20 tab 07/28/19 10/14/19 Tizanidine HCl 4 mg PO TID PRN #25 capsule 07/28/19 10/14/19 Albuterol Sulf [Ventolin Hfa 1 - 2 puffs INH Q4HR PRN #1 inhaler 10/14/19 Inhaler] Benzonatate [Tessalon Perle] 100 - 200 mg PO TID PRN #30 capsule 10/14/19 Cetirizine HCl/Pseudoephedrine 1 each PO BID PRN #30 tab.er.12h 10/14/19 [Zyrtec-D Tablet] Doxycycline Hyclate 100 mg PO BID #20 capsule 10/14/19 Lisinopril [Zestril] 5 mg PO DAILY 10/14/19 10/14/19 Varenicline Tartrate [Chantix] 1 mg PO BID 10/14/19 10/14/19 Gabapentin 300 mg PO BID #60 capsule 11/14/19 - Allergies Allergies/Adverse Reactions: Allergies Allergy/AdvReac Type Severity Reaction Status Date / Time codeine [Codeine] AdvReac Unknown Respiratory Verified 11/14/19 15:04 naproxen AdvReac Unknown Respiratory Verified 11/14/19 15:04 pregabalin [From Lyrica] AdvReac Unknown Respiratory Verified 11/14/19 15:04 - Social History Does the pt smoke?: Yes Smoking Status: Current every day smoker Does the pt drink ETOH?: No Does the pt have substance abuse?: No - Immunizations Immunizations are current?: Yes - POLST Patient has POLST: No PD ED PE NORMAL - Vitals Vital signs reviewed: Yes - General General: Alert and oriented X 3, No acute distress - HEENT HEENT: Other (There is a pointed 1 cm cyst behind the right ear without cellulitis.) - Extremities Extremities: No edema, No calf tenderness / cord - Neuro Neuro: Alert and oriented X 3, Normal speech Results - Vitals Vitals: Vital Signs - 24 hr 05/15/20 13:16 Temperature 36.8 C Heart Rate 126 H Respiratory 16 Rate Blood Pressure 136/84 H O2 Saturation 99 Oxygen O2 Source Room air Procedures - General procedure General procedure: Incision and drainage of noninfected sebaceous cyst. Area was prepped with alcohol and locally infiltrated with lidocaine with epinephrine and then a small incision was made and sebum was removed. I attempted to dissect the sac wall but was unsuccessful. Departure - Departure Disposition: 01 Home, Self Care Clinical Impression: Sebaceous cyst of ear Condition: Good Record reviewed to determine appropriate education?: Yes Instructions: ED Cyst Sebaceous
[2020-05-15 13:56] VITALS: BP 128/69
== END 2020-05-15 14:10 | disposition home or self-care (01) ==
LOC: ED 13:00
DX: L72.3 Sebaceous cyst (principal); I10 Essential (primary) hypertension; F17.200 Nicotine dependence, unspecified, uncomplicated
CPT/HCPCS: 10060

== ENCOUNTER 2020-06-22 18:24 | Emergency (ER) | payer MEDICAID ==
[2020-06-22] MEDS ORDERED: oxyCODONE/ACET 5/325 Prepack 4 PO STA (18:42)
[2020-06-22] MEDS ORDERED: BUPIVACAINE 0.5% PF 10 ML VIAL SUBQ STA (18:43)
--- NOTE | 2020-06-22 18:45 | ED Physician Documentation ---
PD HPI HEADACHE - Stated complaint Stated Complaint: TOOTH PX - Chief complaint Chief Complaint: Heent - History obtained from History obtained from: Patient (She had a lot of trouble with her teeth, she has about 5 days of severe pain from a left mandibular premolar with a large cavity in it. No facial swelling or fevers.) Review of Systems Constitutional: reports: Reviewed and negative Eyes: reports: Reviewed and negative Ears: reports: Reviewed and negative Nose: reports: Reviewed and negative PD PAST MEDICAL HISTORY - Past Medical History Past Medical History: Yes Cardiovascular: Hypertension, High cholesterol, Arrhythmia Respiratory: Asthma Neuro: Migraines Endocrine/Autoimmune: None GI: None KENNEL AIDE: None : None HEENT: Chronic hearing loss Psych: None Musculoskeletal: Fibromyalgia, Chronic back pain Derm: None - Past Surgical History Past Surgical History: Yes /KENNEL AIDE: LEEP (Cervical surgery) HEENT: Tonsil/Adenoidectomy - Present Medications Home Medications: Ambulatory Orders Medication Instructions Recorded Confirmed Albuterol Sulfate [Proventil Hfa 1 - 2 puffs INH Q4H PRN 01/06/19 10/14/19 Inhaler] diphenhydrAMINE [Benadryl] 25 mg PO HS 01/06/19 10/14/19 Ibuprofen [Motrin] 600 mg PO TID PRN #20 tab 07/28/19 10/14/19 Tizanidine HCl 4 mg PO TID PRN #25 capsule 07/28/19 10/14/19 Albuterol Sulf [Ventolin Hfa 1 - 2 puffs INH Q4HR PRN #1 inhaler 10/14/19 Inhaler] Benzonatate [Tessalon Perle] 100 - 200 mg PO TID PRN #30 capsule 10/14/19 Cetirizine HCl/Pseudoephedrine 1 each PO BID PRN #30 tab.er.12h 10/14/19 [Zyrtec-D Tablet] Doxycycline Hyclate 100 mg PO BID #20 capsule 10/14/19 Lisinopril [Zestril] 5 mg PO DAILY 10/14/19 10/14/19 Varenicline Tartrate [Chantix] 1 mg PO BID 10/14/19 10/14/19 Gabapentin 300 mg PO BID #60 capsule 11/14/19 Amoxicillin 500 mg PO TID #30 capsule 06/22/20 Oxycodone HCl/Acetaminophen 1 - 2 each PO Q6H PRN #14 tablet 06/22/20 [Percocet 5-325 mg Tablet] - Allergies Allergies/Adverse Reactions: Allergies Allergy/AdvReac Type Severity Reaction Status Date / Time codeine [Codeine] AdvReac Unknown Respiratory Verified 06/22/20 18:26 naproxen AdvReac Unknown Respiratory Verified 06/22/20 18:26 pregabalin [From Lyrica] AdvReac Unknown Respiratory Verified 06/22/20 18:26 - Social History Does the pt smoke?: Yes Smoking Status: Current every day smoker Does the pt drink ETOH?: No Does the pt have substance abuse?: No - Immunizations Immunizations are current?: Yes - POLST Patient has POLST: No PD ED PE NORMAL - Vitals Vital signs reviewed: Yes (The tachycardia is chronic and not acute looking at old records) - General General: Alert and oriented X 3, No acute distress - HEENT HEENT: Other (Generally poor dentition with a tender premolar on the left mandible that is carious down to the gumline. No trismus, no sublingual edema.) - Neck Neck: Supple, no meningeal sign, No bony TTP - Neuro Neuro: Alert and oriented X 3, Normal speech Results - Vitals Vitals: Vital Signs - 24 hr 06/22/20 18:26 Temperature 36.6 C Heart Rate 140 H Respiratory 16 Rate Blood Pressure 136/92 H O2 Saturation 100 Oxygen O2 Source Room air Procedures - General procedure General procedure: Left-sided inferior alveolar nerve block was done with about 2 mL of 0.5% Marcaine after verbal patient consent for pain relief. Departure - Departure Clinical Impression: Pain due to dental caries Condition: Good Record reviewed to determine appropriate education?: Yes Instructions: ED Tooth Pain Prescriptions: Amoxicillin 500 mg PO TID #30 capsule Oxycodone HCl/Acetaminophen [Percocet 5-325 mg Tablet] 1 - 2 each PO Q6H PRN #14 tablet PRN Reason: pain Comments: It is very important that you follow-up with a dentist. When it comes to dental problems like yours, the emergency department can only offer a short-term solution to your long-term problem. A couple of low cost options for dental care include: [facility] in [place], calls [phone] for an appointment Or [facility] in [place], call [phone] for an appointment. Another option: [facility] [address] [place] [address] (on [facility])
[2020-06-22 19:04] VITALS: BP 144/103
== END 2020-06-22 19:04 | disposition home or self-care (01) ==
LOC: ED 18:24
DX: I10 Essential (primary) hypertension (principal); F17.200 Nicotine dependence, unspecified, uncomplicated; K02.9 Dental caries, unspecified
CPT/HCPCS: 64400

== ENCOUNTER 2020-08-30 11:13 | Emergency (ER) | payer MEDICAID ==
[2020-08-30 12:06] LABS: BILIRUBIN,URINE NEGATIVE (NEGATIVE); GLUCOSE, URINE (UA) NEGATIVE (NEGATIVE); KETONES,URINE (UA) NEGATIVE (NEGATIVE); LEUKOCYTE ESTERASE, URINE NEGATIVE (NEGATIVE); NITRITE,URINE NEGATIVE (NEGATIVE); OCCULT BLOOD,URINE NEGATIVE (NEGATIVE); PROTEIN,URINE NEGATIVE (NEGATIVE); UROBILINOGEN,URINE 0.2 (NORMAL) E.U./dL (NORMAL)
[2020-08-30 12:08] LABS: CLARITY,URINE CLEAR (CLEAR)
[2020-08-30] MEDS ORDERED: HYDROmorphone 1 MG/ML CARPUJECT IVP STA (12:12)
[2020-08-30] MEDS ORDERED: SODIUM CHLORIDE 0.9% 1,000 ML IV STA (12:12)
--- NOTE | 2020-08-30 12:15 | ED Physician Documentation ---
History of Present Illness - Stated complaint Stated Complaint: BACK PX, LACK OF MOBILITY - Chief complaint Chief Complaint: Back Pain - History obtained from History obtained from: Patient - Additonal information Additional information: 35-year-old female presents the emergency department for evaluation of acute on chronic back pain. She has a multiyear history of chronic back pain for which she recently has had imaging at [facility]. She reports that the MRI of her back showed moderate lumbar central canal stenosis and multilevel spondylolisthesis and foraminal stenosis. She has been seen by a pain management doctor and is currently completing a 6-day prednisolone taper. She has also had multiple epidural injections for control of back pain. She has recently been referred to a character impersonator as well as a neurologist for ongoing back pain evaluation. This appointment is scheduled in October. She reports that over the last few weeks she has developed numbness in the left lower lateral calf that extends to the dorsum of the foot. She has no bowel or bladder incontinence. She has had diarrhea recently but has not had any saddle anesthesia. No fevers. In addition to the prednisone taper she is also taking Flexeril and Tylenol as well as 1200 mg of ibuprofen 6 times a day. She reports to me that she has been told that she will likely need lumbar spinal fusion but does not feel that this is a realistic option for her as she is caring for her aged mom as well as her 6-year-old child. Here in the emergency department she is noted to ambulate with a mildly antalgic and stooped gait up and down the hallways. Review of Systems Constitutional: reports: Reviewed and negative Eyes: reports: Reviewed and negative Ears: reports: Reviewed and negative Nose: reports: Reviewed and negative Throat: reports: Reviewed and negative Cardiac: reports: Reviewed and negative Respiratory: reports: Reviewed and negative GI: reports: Reviewed and negative : denies: Dysuria, Frequency, Hesitancy, Unable to Void, Incontinent Skin: reports: Reviewed and negative Musculoskeletal: reports: Back pain Neurologic: reports: Focal weakness (left foot), Numbness (left lowr lateral calf/dorsum of foot). denies: Difficulty speaking, Near syncope, Syncope, Seizure, Confused Psychiatric: reports: Reviewed and negative Endocrine: reports: Reviewed and negative PD PAST MEDICAL HISTORY - Past Medical History Cardiovascular: Hypertension, High cholesterol, Arrhythmia Respiratory: Asthma Neuro: Migraines Endocrine/Autoimmune: None GI: None SEPTIC TECHNICIAN: None : None HEENT: Chronic hearing loss Psych: None Musculoskeletal: Fibromyalgia, Chronic back pain Derm: None - Past Surgical History Past Surgical History: Yes /SEPTIC TECHNICIAN: LEEP (Cervical surgery) HEENT: Tonsil/Adenoidectomy - Present Medications Home Medications: Ambulatory Orders Medication Instructions Recorded Confirmed Albuterol Sulfate [Proventil Hfa 1 - 2 puffs INH Q4H PRN 01/06/19 10/14/19 Inhaler] diphenhydrAMINE [Benadryl] 25 mg PO HS 01/06/19 10/14/19 Ibuprofen [Motrin] 600 mg PO TID PRN #20 tab 07/28/19 10/14/19 Tizanidine HCl 4 mg PO TID PRN #25 capsule 07/28/19 10/14/19 Albuterol Sulf [Ventolin Hfa 1 - 2 puffs INH Q4HR PRN #1 inhaler 10/14/19 Inhaler] Benzonatate [Tessalon Perle] 100 - 200 mg PO TID PRN #30 capsule 10/14/19 Cetirizine HCl/Pseudoephedrine 1 each PO BID PRN #30 tab.er.12h 10/14/19 [Zyrtec-D Tablet] Doxycycline Hyclate 100 mg PO BID #20 capsule 10/14/19 Lisinopril [Zestril] 5 mg PO DAILY 10/14/19 10/14/19 Varenicline Tartrate [Chantix] 1 mg PO BID 10/14/19 10/14/19 Gabapentin 300 mg PO BID #60 capsule 11/14/19 Amoxicillin 500 mg PO TID #30 capsule 06/22/20 Oxycodone HCl/Acetaminophen 1 - 2 each PO Q6H PRN #14 tablet 06/22/20 [Percocet 5-325 mg Tablet] Ibuprofen [Motrin] 600 mg PO Q6H PRN #30 tab 08/30/20 Methocarbamol [Robaxin-750] 750 mg PO TID #30 tablet 08/30/20 Oxycodone HCl/Acetaminophen 1 each PO BID PRN #10 tablet 08/30/20 [Percocet 10-325 mg Tablet] - Allergies Allergies/Adverse Reactions: Allergies Allergy/AdvReac Type Severity Reaction Status Date / Time codeine [Codeine] AdvReac Unknown Respiratory Verified 08/30/20 11:20 naproxen AdvReac Unknown Respiratory Verified 08/30/20 11:20 pregabalin [From Lyrica] AdvReac Unknown Respiratory Verified 08/30/20 11:20 - Social History Does the pt smoke?: Yes Smoking Status: Current every day smoker Does the pt drink ETOH?: No Does the pt have substance abuse?: No - Immunizations Immunizations are current?: Yes - POLST Patient has POLST: No PD ED PE EXPANDED - General General: Alert, In Pain, In distress, Other (mild obesity) - Cardiac Cardiac: Tachy, Regular Rhythm, Radial strong equal, Pedal strong equal, Cap refill < 2 sec - Respiratory Respiratory: Clear to ausultation lisa. No: Distress, Labored - Abdomen Abdomen: Normal Bowel sounds. No: Tender to palpation - Rectal Rectal: Normal Tone (Normal rectal tone. No saddle anesthesia noted. Post void bladder scan residual 15 mL after 50 ml void) - Back Back: Soft tissue tenderness (midline and left lowr lumbar tenderness withotu erythema. motor strength 4/5 left leg. 5/5 right leg), Straight leg raise + L - Neuro Neuro: Abnormal sensation (left lower lateral calf/dorsum of foot) - GCS Eye Opening: Spontaneous Motor: Obeys Commands Verbal: Oriented Total: 15 Results - Vitals Vitals: Vital Signs - 24 hr 08/30/20 08/30/20 11:17 12:50 Temperature 36.4 C L Heart Rate 150 H 104 H Respiratory 16 Rate Blood Pressure 154/96 H 133/92 H O2 Saturation 100 100 Oxygen O2 Source Room air - Labs Labs: Laboratory Tests 08/30/20 08/30/20 08/30/20 11:45 11:45 11:45 WBC 9.3 RBC 4.89 Hgb 15.0 Hct 45.2 MCV 92.4 MCH 30.7 MCHC 33.2 RDW 12.9 Plt Count 352 MPV 8.9 Neut # (Auto) 5.0 Lymph # (Auto) 3.4 [place] # (Auto) 0.6 Eos # (Auto) 0.1 Baso # (Auto) 0.1 Absolute Nucleated RBC 0.00 Nucleated RBC % 0.0 Sodium Potassium Chloride Carbon Dioxide Anion Gap BUN Creatinine Estimated GFR (MDRD) Glucose Calcium Total Bilirubin AST ALT Alkaline Phosphatase Total Protein Albumin Globulin Albumin/Globulin Ratio Lipase Urine Color YELLOW Urine Clarity CLEAR Urine pH 6.0 Ur Specific [place] 1.020 Urine Protein NEGATIVE Urine Glucose (UA) NEGATIVE Urine Ketones NEGATIVE Urine Occult Blood NEGATIVE Urine Nitrite NEGATIVE Urine Bilirubin NEGATIVE Urine Urobilinogen 0.2 (NORMAL) Ur Leukocyte Esterase NEGATIVE Ur Microscopic Review NOT INDICATED Urine Culture Comments NOT INDICATED Urine HCG, Qual NEGATIVE 08/30/20 11:45 WBC RBC Hgb Hct MCV MCH MCHC RDW Plt Count MPV Neut # (Auto) Lymph # (Auto) [place] # (Auto) Eos # (Auto) Baso # (Auto) Absolute Nucleated RBC Nucleated RBC % Sodium 132 L Potassium 3.8 Chloride 97 L Carbon Dioxide 25 Anion Gap 10.0 BUN 12 Creatinine 0.7 Estimated GFR (MDRD) 95 Glucose 97 Calcium 9.6 Total Bilirubin 0.5 AST 19 ALT 26 Alkaline Phosphatase 59 Total Protein 6.9 Albumin 4.3 Globulin 2.6 Albumin/Globulin Ratio 1.7 Lipase 15 L Urine Color Urine Clarity Urine pH Ur Specific [place] Urine Protein Urine Glucose (UA) Urine Ketones Urine Occult Blood Urine Nitrite Urine Bilirubin Urine Urobilinogen Ur Leukocyte Esterase Ur Microscopic Review Urine Culture Comments Urine HCG, Qual PD MEDICAL DECISION MAKING - ED course Complexity details: reviewed results, re-evaluated patient, considered differential, d/w patient ED course: 35-year-old female presents the emergency department for evaluation of acute on chronic back pain. She reports recently having an MRI which showed moderate central canal stenosis in the lumbar area as well as foraminal stenosis and spondylolisthesis. She is scheduled to be seen by both a character impersonator and a neurologist in October. The working differential for her back pain includes ankylosing spondylolysis. She has been seen by a pain management doctor and has had multiple steroid injections in the back. She is no longer able to receive these injections. She is also completing a taper of prednisolone. Here in the emergency department she does not have red flags to include saddle anesthesia fevers loss of bowel or bladder incontinence. Her post void bladder scan was 15 mils and her rectal tone is preserved. She is ambulatory though antalgic. I discussed with her at length that narcotics are not indicated for long-term chronic back pain management and that the solution may lie in further evaluation with a neurologist as well as the character impersonator. However she did present with exquisite pain and was tachycardic in the 150s. This resolved following 1 L of fluids as well as 1 mg of Dilaudid. Patient reports that she feels a locking in her back much like a spasm that is not amenable to Flexeril. I will write her prescription for methocarbamol as well is a very limited scription of Just Sing It. Patient was told that she could not receive a future prescription for this. In addition to that I have made a recommendation that her ibuprofen not exceed 600 mg 6 times a day. She did repeat report taking double this dose. Her renal function was checked today and is normal. Emergent return precautions discussed Departure - Departure Disposition: Home, Self Care Clinical Impression: Chronic low back pain Qualifiers: Back pain laterality: unspecified Sciatica presence: unspecified whether sciatica present Qualified Code(s): M54.5 - Low back pain; G89.29 - Other chronic pain Condition: Stable Record reviewed to determine appropriate education?: Yes Follow-Up: Afsaneh Cervantes, HOLLIE, LM [Primary Care Provider] - Prescriptions: Ibuprofen [Motrin] 600 mg PO Q6H PRN #30 tab PRN Reason: Pain Oxycodone HCl/Acetaminophen [Percocet 10-325 mg Tablet] 1 each PO BID PRN #10 tablet PRN Reason: Pain Methocarbamol [Robaxin-750] 750 mg PO TID #30 tablet Comments: Jaz please continue to follow-up with your neurologist and character impersonator. The dose of ibuprofen you were taking is unsafe. I have prescribed 600 mg tablets. Do not take these more than 4-6 times a day. Your kidney function today was normal. I have prescribed a different muscle relaxer for you. It is called methocarbamol or also known as Robaxin. Do not take Flexeril or the cyclobenzaprine with this medication. It may cause excessive drowsiness. Do not drive if taking this. I do recommend that you continue gentle stretching and activity as tolerated. I have prescribed a very limited amount of oxycodone for chronic back pain use. Do not drive if taking this medication it makes you unsafe to drive. The emergency department is unable to provide a refill of this in the future. It is critical that you continue to follow-up with your character impersonator and neurologist for longer-term evaluation of your back pain.
[2020-08-30 12:16] LABS: HCG UR QUAL NEGATIVE
[2020-08-30 12:19] LABS: BASOPHILS # (AUTO) 0.1 10^3/uL (0.0-0.1); BASOPHILS % (AUTO) 0.8 %; EOSINOPHILS # (AUTO) 0.1 10^3/uL (0.0-0.7); EOSINOPHILS % (AUTO) 1.4 %; LYMPHOCYTES # (AUTO) 3.4 10^3/uL (1.5-3.5); MEAN CORPUSCULAR HEMOGLOBIN 30.7 pg (27.0-31.0); MEAN CORPUSCULAR HGB CONC 33.2 g/dL (32.0-36.0); MEAN CORPUSCULAR VOLUME 92.4 fL (81.0-99.0); MEAN PLATELET VOLUME 8.9 fL (7.9-10.8); MONOCYTES # (AUTO) 0.6 10^3/uL (0.0-1.0); MONOCYTES % (AUTO) 6.5 %; PLT - PLATELET COUNT 352 10^3/uL (130-450); RED BLOOD COUNT 4.89 10^6/uL (4.20-5.40); RED CELL DISTRIBUTION WIDTH 12.9 % (12.0-15.0); WHITE BLOOD COUNT 9.3 x10^3/uL (4.8-10.8)
[2020-08-30 12:26] LABS: ALBUMIN 4.3 g/dL (3.2-5.5); ALBUMIN/GLOBULIN RATIO 1.7 (1.0-2.2); BILIRUBIN,TOTAL 0.5 mg/dL (0.2-1.0); CALCIUM 9.6 mg/dL (8.5-10.3); CREATININE 0.7 mg/dL (0.4-1.0); TOTAL PROTEIN 6.9 g/dL (6.7-8.2)
[2020-08-30 13:44] VITALS: BP 124/82
== END 2020-08-30 13:43 | disposition home or self-care (01) ==
LOC: ED 11:13
DX: M54.5 Low back pain (principal); G89.29 Other chronic pain; F17.200 Nicotine dependence, unspecified, uncomplicated
CPT/HCPCS: 36415; 51798; 80053; 81003; 81025; 83690; 85025; 96374; 99283; 99284; J1170; 81001; 84702; 87086

== ENCOUNTER 2020-09-24 10:27 | Outpatient (CLI) | payer MEDICAID ==
--- NOTE | 2020-09-24 16:46 | XRAY Report ---
PROCEDURE: Cervical Spine 2 View INDICATIONS: CERICALGIA TECHNIQUE: 3 view(s) of the cervical spine were acquired. COMPARISON: None. FINDINGS: Bones: No fractures or dislocations to the superior endplate of T1 level. The lateral masses of C1 appear intact on the odontoid view. No suspicious bony lesions. No acute compression fractures. No significant spondylitic changes. Soft tissues: No prevertebral soft tissue swelling. IMPRESSION: Cervical spine without acute fracture or malalignment. No significant spondylosis. Reviewed by: Manoj Mar MD on 09/24/2020 4:44 PM PST Approved by: Manoj Mar MD on 09/24/2020 4:44 PM PST Station ID: [id number]
== END 2020-09-24 10:28 | disposition home or self-care (01) ==
LOC: DI 10:27
PROVIDERS: ATTEND Naturopath
DX: M54.2 Cervicalgia (principal)

== ENCOUNTER 2020-11-07 23:19 | Emergency (ER) | payer MEDICAID ==
--- OUTSIDE RECORDS SUMMARY | 2020-11-07 23:22 | EXTERNAL MEDICAL SUMMARY RPT | Continuity of Care Document ---
:1985 Demographics Phone Unavailable Preferred Language Unknown Marital Status Unknown Restoration Affiliation Unknown Race Unknown Ethnic Group Unknown Author Organization [facility] Address [address] [phone] Phone Social History date description facility [phone]
--- OUTSIDE RECORDS SUMMARY | 2020-11-07 23:25 | EXTERNAL MEDICAL SUMMARY RPT | Continuity of Care Document ---
:1985 Demographics Phone Unavailable Preferred Language Unknown Marital Status Unknown Holiness Affiliation Unknown Race Unknown Ethnic Group Unknown Author Organization [facility] Address [address] [place] [address] Phone Social History date description facility [phone]
[2020-11-08 00:22] LABS: BASOPHILS % (AUTO) 0.4 %; EOSINOPHILS # (AUTO) 0.1 10^3/uL (0.0-0.7); EOSINOPHILS % (AUTO) 0.9 %; HCT - HEMATOCRIT 43.3 % (37.0-47.0); HGB - HEMOGLOBIN 14.5 g/dL (12.0-16.0); LYMPHOCYTES # (AUTO) 4.7 10^3/uL (1.5-3.5); LYMPHOCYTES % (AUTO) 45.7 %; MEAN CORPUSCULAR HEMOGLOBIN 30.5 pg (27.0-31.0); MEAN CORPUSCULAR HGB CONC 33.5 g/dL (32.0-36.0); MEAN PLATELET VOLUME 8.9 fL (7.9-10.8); MONOCYTES # (AUTO) 0.8 10^3/uL (0.0-1.0); MONOCYTES % (AUTO) 8.2 %; NEUTROPHILS # (AUTO) 4.6 10^3/uL (1.5-6.6); NEUTROPHILS % (AUTO) 44.6 %; PLT - PLATELET COUNT 341 10^3/uL (130-450); RED BLOOD COUNT 4.76 10^6/uL (4.20-5.40); RED CELL DISTRIBUTION WIDTH 12.8 % (12.0-15.0); WHITE BLOOD COUNT 10.3 x10^3/uL (4.8-10.8)
[2020-11-08 00:35] LABS: ALBUMIN 4.4 g/dL (3.2-5.5); ALBUMIN/GLOBULIN RATIO 1.4 (1.0-2.2); BILIRUBIN,TOTAL 0.4 mg/dL (0.2-1.0); CALCIUM 9.7 mg/dL (8.5-10.3); CREATININE 0.9 mg/dL (0.4-1.0); POTASSIUM 3.5 mmol/L (3.5-5.0); TOTAL PROTEIN 7.5 g/dL (6.7-8.2)
[2020-11-08] MEDS ORDERED: ALPRAZolam 0.25 MG TABLET PO STA (01:26)
--- NOTE | 2020-11-08 01:28 | ED Physician Documentation ---
PD HPI CHEST PAIN - Stated complaint Stated Complaint: CP/NECK AND L ARM PX - Chief complaint Chief Complaint: Cardiac - History obtained from History obtained from: Patient - Additional information Additional information: Patient comes emergency department chief complaint of left-sided chest pressure waxing and waning randomly for the last couple of days. Patient states that her chest feels tight when she tries to take a deep breath. She has occasionally felt radiation to her shoulder. No nausea or vomiting. Patient states she has been under a lot of stress lately, and just went through a court case last week regarding a lawsuit against her for some thousands of dollars. She states that she is also a single mother to 2 children, which has caused her some chronic stress. The patient denies any dyspnea or discomfort on exertion. She has no history of coronary artery disease herself, and no diagnoses at a young age in her family. Patient does smoke 5 cigarettes/day. She has a history of some degree of hypertension and hyperlipidemia, though she has been able to keep this under fairly good control with meds. The patient states that she had symptoms like this once before a few years back and that she was felt to likely have anxiety at that time. Patient states she has a little bit of the pressure right now. No current signs of dyspnea or nausea. No other complaints at this time. She states that nothing really seems to make it better or worse. Review of Systems Ten Systems: 10 systems reviewed and negative Constitutional: reports: Reviewed and negative Eyes: reports: Reviewed and negative Ears: reports: Reviewed and negative Nose: reports: Reviewed and negative Throat: reports: Reviewed and negative Cardiac: reports: Chest pain / pressure Respiratory: reports: Reviewed and negative. denies: Dyspnea GI: reports: Reviewed and negative. denies: Nausea : reports: Reviewed and negative Skin: reports: Reviewed and negative Musculoskeletal: reports: Reviewed and negative. denies: Extremity swelling Neurologic: reports: Reviewed and negative Psychiatric: reports: Reviewed and negative Endocrine: reports: Reviewed and negative Immunocompromised: reports: Reviewed and negative PD PAST MEDICAL HISTORY - Past Medical History Past Medical History: Yes Cardiovascular: Hypertension, High cholesterol, Arrhythmia Respiratory: Asthma Neuro: Migraines Endocrine/Autoimmune: None GI: None BARREL ROLLER: None : None HEENT: Chronic hearing loss Psych: None Musculoskeletal: Fibromyalgia, Chronic back pain Derm: None - Past Surgical History Past Surgical History: Yes /BARREL ROLLER: LEEP (Cervical surgery) HEENT: Tonsil/Adenoidectomy - Present Medications Home Medications: Ambulatory Orders Medication Instructions Recorded Confirmed Albuterol Sulfate [Proventil Hfa 1 - 2 puffs INH Q4H PRN 01/06/19 10/14/19 Inhaler] diphenhydrAMINE [Benadryl] 25 mg PO HS 01/06/19 10/14/19 Tizanidine HCl 4 mg PO TID PRN #25 capsule 07/28/19 10/14/19 Cetirizine HCl/Pseudoephedrine 1 each PO BID PRN #30 tab.er.12h 10/14/19 [Zyrtec-D Tablet] Lisinopril [Zestril] 5 mg PO DAILY 10/14/19 10/14/19 Gabapentin 300 mg PO BID #60 capsule 11/14/19 Alprazolam [Xanax] 0.5 mg PO Q6H PRN #20 tablet 11/08/20 Chlorthalidone 25 mg PO DAILY 11/08/20 11/08/20 DULoxetine [Cymbalta] 20 mg PO DAILY 11/08/20 11/08/20 Nitroglycerin [Nitrostat] 0.4 mg SL Q5MIN PRN #20 tablet 11/08/20 Potassium Chloride 10 meq PO 11/08/20 - Allergies Allergies/Adverse Reactions: Allergies Allergy/AdvReac Type Severity Reaction Status Date / Time codeine [Codeine] AdvReac Unknown Respiratory Verified 11/07/20 23:32 naproxen AdvReac Unknown Respiratory Verified 11/07/20 23:32 pregabalin [From Lyrica] AdvReac Unknown Respiratory Verified 11/07/20 23:32 - Social History Does the pt smoke?: Yes Smoking Status: Current every day smoker Does the pt drink ETOH?: No Does the pt have substance abuse?: No - Immunizations Immunizations are current?: Yes - POLST Patient has POLST: No PD ED PE NORMAL - Vitals Vital signs reviewed: Yes - General General: Alert and oriented X 3, No acute distress, Well developed/nourished - HEENT HEENT: Atraumatic, PERRL, EOMI, Moist mucous membranes - Neck Neck: Supple, no meningeal sign - Cardiac Cardiac: RRR, No murmur, Strong equal pulses - Respiratory Respiratory: No respiratory distress, Clear bilaterally - Abdomen Abdomen: Soft, Non tender, Non distended - Derm Derm: Normal color, Warm and dry, No rash - Extremities Extremities: No deformity, No edema, No calf tenderness / cord - Neuro Neuro: Alert and oriented X 3, gasateria attendant 2-12 intact, Normal speech - Psych Psych: Normal mood, Normal affect Results - Vitals Vitals: Oxygen O2 Source Room air - EKG (time done) 2333 Rate: Rate (enter#) (119) Rhythm: Sinus tachycardia Narka: RAD Intervals: Normal CO QRS: Normal Ischemia: Normal ST segments. No: T wave inversion Compare to prior EKG: Old EKG unavailable Computer interpretation: Agree with computer - Labs Labs: Laboratory Tests 11/07/20 11/07/20 11/07/20 00:15 00:15 00:15 WBC 10.3 RBC 4.76 Hgb 14.5 Hct 43.3 MCV 91.0 MCH 30.5 MCHC 33.5 RDW 12.8 Plt Count 341 MPV 8.9 Neut # (Auto) 4.6 Lymph # (Auto) 4.7 H Elliott # (Auto) 0.8 Eos # (Auto) 0.1 Baso # (Auto) 0.0 Absolute Nucleated RBC 0.00 Nucleated RBC % 0.0 Sodium 138 Potassium 3.5 Chloride 100 L Carbon Dioxide 27 Anion Gap 11.0 BUN 27 H Creatinine 0.9 Estimated GFR (MDRD) 71 L Glucose 97 Calcium 9.7 Total Bilirubin 0.4 AST 24 ALT 31 Alkaline Phosphatase 63 Troponin I High Sens 3.5 Total Protein 7.5 Albumin 4.4 Globulin 3.1 Albumin/Globulin Ratio 1.4 Lipase 29 - Rads (name of study) CXR Radiology: Final report received, EMP read indepedently, See rad report (neg) PD MEDICAL DECISION MAKING - ED course Complexity details: reviewed results, re-evaluated patient, considered differential, d/w patient ED course: The patient was well-appearing in the emergency department, and her young age put her at a lower risk for coronary artery disease. However, she did have some risk factors that would be increasingly important as time goes on, in terms of CAD. The patient's initial work-up was negative. Patient stated that she needed to go home because she could not get a hold of her children, however home by themselves. I stated to her that I would prefer that she stated if possible, the patient stated this is not possible at this time. It is entirely possible the patient has anxiety, given the extreme stress she has been under lately, but I discussed with her at length that it is extremely important that she follows up with her doctor to have a stress test done to evaluate further for potential early onset coronary artery disease, even though this is rare. The patient has also been given strict instructions that should her symptoms worsen in any way, she should return to the emergency department immediately. She has been given prescriptions for both nitroglycerin and Xanax. Departure - Departure Disposition: 01 Home, Self Care Clinical Impression: Anxiety Chest pain Qualifiers: Chest pain type: unspecified Qualified Code(s): R07.9 - Chest pain, unspecified Condition: Stable Instructions: ED Chest Pain Atypical Unkn Cause, ED Panic Attack Prescriptions: Nitroglycerin [Nitrostat] 0.4 mg SL Q5MIN PRN #20 tablet PRN Reason: Chest Pain Alprazolam [Xanax] 0.5 mg PO Q6H PRN #20 tablet PRN Reason: Anxiety Comments: Your labs and EKG show no evidence of a heart attack today. Your symptoms could be due to to anxiety; however, you do have some risk factors for coronary artery disease, the condition that leads to heart attack. As such, it is very important that you talk to your doctor about whether a stress test would be a good idea at this time. You may take the Xanax as needed for anxiety. The nitroglycerin you may take as needed for chest pain. If this seems to significantly relieve your chest pain, then it does make the likelihood of heart disease higher, and increases the importance of thorough testing to evaluate for this possibility. If your symptoms in any way worsen, please return to the emergency department immediately. Discharge Date/Time: 11/08/20 01:38
[2020-11-08 01:38] VITALS: BP 161/65
--- NOTE | 2020-11-08 09:09 | XRAY Report ---
PROCEDURE: Chest 1 View X-Ray INDICATIONS: Chest pain TECHNIQUE: One view of the chest was acquired. COMPARISON: 10/14/2019 FINDINGS: Surgical changes and devices: None. Lungs and pleura: No pleural effusions or pneumothorax. Lungs are clear. Mediastinum: Mediastinal contours appear normal. Heart size is normal. Bones and chest wall: No suspicious bony lesions. Overlying soft tissues appear unremarkable. IMPRESSION: 1. No acute cardiopulmonary disease. Reviewed by: Sreedhar Guerra MD on 11/08/2020 9:08 AM PDT Approved by: Sreedhar Guerra MD on 11/08/2020 9:08 AM PDT Station ID: [id number]
== END 2020-11-08 01:38 | disposition home or self-care (01) ==
LOC: ED 23:19
DX: F41.9 Anxiety disorder, unspecified (principal); R07.89 Other chest pain; R00.0 Tachycardia, unspecified; I10 Essential (primary) hypertension; E78.5 Hyperlipidemia, unspecified; F17.210 Nicotine dependence, cigarettes, uncomplicated
CPT/HCPCS: 36415; 71045; 80053; 83690; 84484; 85025; 93005; 99284; A9270

== ENCOUNTER 2020-11-10 12:41 | Outpatient (CLI) | payer MEDICAID ==
[2020-11-10 13:17] LABS: BUN - BLOOD UREA NITROGEN 14 mg/dL (6-20); CALCIUM 9.7 mg/dL (8.5-10.3); CARBON DIOXIDE - CO2 27 mmol/L (21-32); CHLORIDE 97 mmol/L (101-111); CHOL/HDL RATIO 7.3 (<4.4); CHOLESTEROL 352 mg/dL; CREATININE 0.6 mg/dL (0.4-1.0); GFR - MDRD 114 (>89); GLUCOSE 101 mg/dL (70-100); HDL CHOLESTEROL 48 mg/dL; LDL CHOLESTEROL,CALCULATED 230 mg/dL; LDL/HDL RATIO 4.8 (<4.4); POTASSIUM 3.5 mmol/L (3.5-5.0); SODIUM 135 mmol/L (135-145); TRIGLYCERIDES 368 mg/dL; VLDL CHOLESTEROL 74 mg/dL
== END 2020-11-10 12:42 | disposition home or self-care (01) ==
LOC: LAB 12:41
PROVIDERS: ATTEND Naturopath
DX: E78.00 Pure hypercholesterolemia, unspecified (principal); I10 Essential (primary) hypertension
CPT/HCPCS: 36415; 80048; 80061; 83721

== ENCOUNTER 2021-01-07 10:18 | Emergency (ER) | payer MEDICAID ==
--- OUTSIDE RECORDS SUMMARY | 2021-01-07 10:21 | EXTERNAL MEDICAL SUMMARY RPT | Continuity of Care Document ---
:1985 Demographics Phone Unavailable Preferred Language Unknown Marital Status Unknown Cheondoism Affiliation Unknown Race Unknown Ethnic Group Unknown Author Organization [facility] Address [address] [phone] Phone Allergies Encounters Medications Problems Results
--- OUTSIDE RECORDS SUMMARY | 2021-01-07 10:31 | EXTERNAL MEDICAL SUMMARY RPT | Continuity of Care Document ---
:1985 Demographics Phone Unavailable Preferred Language Unknown Marital Status Unknown Catholic Affiliation Unknown Race Unknown Ethnic Group Unknown Author Organization [facility] Address [address] [place] [address] Phone Allergies Encounters Medications Problems Results
[2021-01-07] MEDS ORDERED: CHERRY SYRUP 10 ML UDC PO ONE (11:46)
[2021-01-07] MEDS ORDERED: DEXAMETHASONE 10 MG/ML VIAL PO STA (11:46)
[2021-01-07] MEDS ORDERED: KETOROLAC 60 MG/2 ML VIAL IM STA (11:46)
--- NOTE | 2021-01-07 11:50 | ED Physician Documentation ---
PD HPI NECK PAIN - Stated complaint Stated Complaint: NECK PX - Chief complaint Chief Complaint: General - History obtained from History obtained from: Patient - History of Present Illness Timing - onset: How many weeks ago (2) Timing - duration: Weeks (2) Timing - details: Gradual onset, Still present, Waxing and waning Location: Lower, Right Quality: Pain, Spasm, Sharp Associated symptoms: Weakness, Numbness. No: Fever, Incontinent of urine, Unable to urinate, Hematuria, Incontinent of stool Improves with: Rest Worsened by: Movement, Lifting, Twisting Similar symptoms before: Diagnosis (sciatica in the lower back) Recently seen: Clinic - Additional information Additional information: 35-year-old female with a history of markedly elevated cholesterol and intermittent tachycardia and sciatica has developed symptoms in her neck with pain and stiffness and numbness and tingling to the right hand. She has had symptoms for about 2 weeks they are undulating and similar to what she has had with sciatica in her leg.She has a intermittent tachycardia and she has evaluation by cardiology to be done tomorrow. Review of Systems Constitutional: denies: Fever Eyes: denies: Decreased vision Ears: denies: Ear pain, Drainage/discharge Nose: denies: Rhinorrhea / runny nose, Congestion Throat: denies: Sore throat Cardiac: denies: Chest pain / pressure, Palpitations Respiratory: reports: Dyspnea (intermittant). denies: Cough GI: denies: Abdominal Pain, Nausea, Vomiting : denies: Dysuria, Frequency PD PAST MEDICAL HISTORY - Past Medical History Past Medical History: Yes Cardiovascular: Hypertension, High cholesterol, Arrhythmia Respiratory: None Neuro: Migraines Endocrine/Autoimmune: None GI: None WET TRIMMER: None : None HEENT: Chronic hearing loss Psych: Depression Musculoskeletal: Fibromyalgia, Chronic back pain Derm: None - Past Surgical History Past Surgical History: Yes /WET TRIMMER: LEEP (Cervical surgery) HEENT: Tonsil/Adenoidectomy - Present Medications Home Medications: Ambulatory Orders Medication Instructions Recorded Confirmed Albuterol Sulfate [Proventil Hfa 1 - 2 puffs INH Q4H PRN 01/06/19 01/07/21 Inhaler] diphenhydrAMINE [Benadryl] 50 mg PO HS 01/06/19 01/07/21 Chlorthalidone 25 mg PO DAILY 11/08/20 01/07/21 DULoxetine [Cymbalta] 60 mg PO DAILY 11/08/20 01/07/21 Nitroglycerin [Nitrostat] 0.4 mg SL Q5MIN PRN #20 tablet 11/08/20 01/07/21 Potassium Chloride 10 meq PO DAILY 11/08/20 01/07/21 Atorvastatin Calcium [Lipitor] 80 mg ORAL DAILY 01/07/21 01/07/21 HYDROcod/ACETAM 5/325 [Concord 5/325] 1 - 2 tablet PO Q6H PRN #14 tablet 01/07/21 Melatonin 3 mg PO HS PRN 01/07/21 01/07/21 Varenicline Tartrate [Chantix] 1 mg PO DAILY 01/07/21 01/07/21 methocarbamoL [Methocarbamol] 750 mg PO HS PRN 01/07/21 01/07/21 - Allergies Allergies/Adverse Reactions: Allergies Allergy/AdvReac Type Severity Reaction Status Date / Time codeine [Codeine] AdvReac Unknown Respiratory Verified 01/07/21 10:27 naproxen AdvReac Unknown Respiratory Verified 01/07/21 10:27 pregabalin [From Lyrica] AdvReac Unknown Respiratory Verified 01/07/21 10:27 - Social History Does the pt smoke?: Yes Smoking Status: Current every day smoker Does the pt drink ETOH?: No Does the pt have substance abuse?: No - Immunizations Immunizations are current?: Yes - POLST Patient has POLST: No PD ED PE NORMAL - Vitals Vital signs reviewed: Yes (tachycardia and hypertensive ) - General General: Alert and oriented X 3, No acute distress, Well developed/nourished - HEENT HEENT: Atraumatic, PERRL, EOMI - Neck Neck: Supple, no meningeal sign, No bony TTP, Other (No significant muscle tenderness to the cervical spine. ) - Cardiac Cardiac: No murmur, Other (tachy to 120) - Respiratory Respiratory: No respiratory distress, Clear bilaterally - Abdomen Abdomen: Normal bowel sounds, Soft, Non tender, Non distended, No organomegaly - Back Back: No CVA TTP, No spinal TTP - Derm Derm: Normal color, Warm and dry, No rash - Extremities Extremities: No deformity, No edema - Neuro Neuro: Alert and oriented X 3, glass technician 2-12 intact, No motor deficit, No sensory deficit, Normal speech Eye Opening: Spontaneous Motor: Obeys Commands Verbal: Oriented GCS Score: 15 - Psych Psych: Normal mood, Normal affect Results - Vitals Vitals: Vital Signs - 24 hr 01/07/21 01/07/21 10:22 11:24 Temperature 36.1 C L Heart Rate 142 H 133 H Respiratory 20 18 Rate Blood Pressure 120/92 H 156/116 H O2 Saturation 99 97 Oxygen O2 Source Room air Procedures - IVC sono (time) 1145 Bedside IVC sono: IVC measures (cm) (1.34), Euvolemia PD MEDICAL DECISION MAKING - ED course Complexity details: reviewed results, re-evaluated patient, considered differential, d/w patient ED course: 35-year-old female with a cervical radiculopathy has pain radiating down her right arm as well as weakness into the right hand that is periodic in nature. She does not currently have weakness. She will need MRI of her neck and today we will treat her with dexamethasone and Toradol. We will add some pain medication to her regimen for her use over the next several days. She has muscle relaxant at home. She has a follow-up tomorrow with cardiology and today we did interrogate the inferior vena cava to consider dehydration as a reason for her tachycardia and we did not find this. Departure - Departure Disposition: 01 Home, Self Care Clinical Impression: Cervical radiculopathy Condition: Stable Instructions: ED Cervical Radiculopathy Follow-Up: Afsaneh Cervantes ND, LM [Primary Care Provider] - Prescriptions: HYDROcod/ACETAM 5/325 [Concord 5/325] 1 - 2 tablet PO Q6H PRN #14 tablet PRN Reason: Pain
[2021-01-07 12:01] VITALS: BP 137/90
== END 2021-01-07 12:06 | disposition home or self-care (01) ==
LOC: ED 10:18
DX: M54.12 Radiculopathy, cervical region (principal); I10 Essential (primary) hypertension; F17.200 Nicotine dependence, unspecified, uncomplicated
CPT/HCPCS: 96372; 99283; 99284; A9270

== ENCOUNTER 2021-01-13 10:31 | Outpatient (CLI) | payer MEDICAID ==
[2021-01-13 11:36] LABS: CHOLESTEROL 250 mg/dL; HDL CHOLESTEROL 42 mg/dL; LDL CHOLESTEROL,CALCULATED 165 mg/dL; LDL/HDL RATIO 3.9 (<4.4); TRIGLYCERIDES 217 mg/dL; VLDL CHOLESTEROL 43 mg/dL
== END 2021-01-13 10:32 | disposition home or self-care (01) ==
LOC: LAB 10:31
PROVIDERS: ATTEND Naturopath
DX: E78.00 Pure hypercholesterolemia, unspecified (principal)
CPT/HCPCS: 36415; 80061; 83721

== ENCOUNTER 2021-01-13 11:02 | Emergency (ER) | payer MEDICAID ==
--- OUTSIDE RECORDS SUMMARY | 2021-01-13 11:06 | EXTERNAL MEDICAL SUMMARY RPT | Continuity of Care Document ---
:1985 Demographics Phone Unavailable Preferred Language Unknown Marital Status Unknown Druze Affiliation Unknown Race Unknown Ethnic Group Unknown Author Organization [facility] Address [address] [phone] Phone Allergies Encounters Medications Problems Results
--- OUTSIDE RECORDS SUMMARY | 2021-01-13 11:27 | EXTERNAL MEDICAL SUMMARY RPT | Continuity of Care Document ---
:1985 Demographics Phone Unavailable Preferred Language Unknown Marital Status Unknown Orthodoxy Affiliation Unknown Race Unknown Ethnic Group Unknown Author Organization [facility] Address [address] [phone] Phone Allergies Encounters Medications Problems Results
--- NOTE | 2021-01-13 11:41 | ED Physician Documentation ---
History of Present Illness - Stated complaint Stated Complaint: CHEST PX/HIGH BP - Chief complaint Chief Complaint: Cardiac - Additonal information Additional information: 35-year-old female presents the emergency department for evaluation of 4 days of substernal chest pain. Sharp but radiates down both her arms. She is unable to describe any exacerbating factors not worse with exertion and sometimes occurs at rest. Typically lasts a few minutes. She does have a longstanding history of tachycardia and saw her intelligent systems engineer about 5 days ago. He is attempting to order outpatient Holter monitor as well as echocardiogram and stress test. Patient is also concerned because over the last 4 days she is noted that her blood pressure at home has been typically higher than normal. It Has been measured in the 160s over the 110s on her wrist. Patient does have a longstanding history of hypertension has been compliant with her meds. She is an active daily tobacco user but attempting to quit. Denies abdominal pain nausea vomiting. She does report feeling short of breath over the last few days but has had no lower extremity swelling calf pain or tenderness. Review of Systems Constitutional: denies: Fever, Chills Eyes: reports: Reviewed and negative Ears: reports: Reviewed and negative Nose: reports: Reviewed and negative Throat: reports: Reviewed and negative Cardiac: reports: Chest pain / pressure, Palpitations. denies: Pedal edema, Calf pain Respiratory: reports: Dyspnea. denies: Cough, Hemoptysis, Wheezing GI: denies: Abdominal Pain, Nausea, Vomiting : denies: Dysuria, Frequency, Hesitancy Skin: denies: Rash, Lesions Musculoskeletal: reports: Neck pain, Back pain Neurologic: denies: Generalized weakness, Focal weakness PD PAST MEDICAL HISTORY - Past Medical History Cardiovascular: Hypertension, High cholesterol, Arrhythmia Respiratory: None Neuro: Migraines Endocrine/Autoimmune: None GI: None REDUCER: None : None HEENT: Chronic hearing loss Psych: Depression Musculoskeletal: Fibromyalgia, Chronic back pain Derm: None - Past Surgical History Past Surgical History: Yes /REDUCER: LEEP (Cervical surgery) HEENT: Tonsil/Adenoidectomy - Present Medications Home Medications: Ambulatory Orders Medication Instructions Recorded Confirmed Albuterol Sulfate [Proventil Hfa 1 - 2 puffs INH Q4H PRN 01/06/19 01/13/21 Inhaler] diphenhydrAMINE [Benadryl] 50 mg PO HS 01/06/19 01/13/21 Chlorthalidone 25 mg PO DAILY 11/08/20 01/13/21 DULoxetine [Cymbalta] 60 mg PO DAILY 11/08/20 01/13/21 Nitroglycerin [Nitrostat] 0.4 mg SL Q5MIN PRN #20 tablet 11/08/20 01/13/21 Potassium Chloride 10 meq PO DAILY 11/08/20 01/13/21 Atorvastatin Calcium [Lipitor] 80 mg ORAL DAILY 01/07/21 01/13/21 Melatonin 3 mg PO HS PRN 01/07/21 01/13/21 Varenicline Tartrate [Chantix] 1 mg PO DAILY 01/07/21 01/13/21 methocarbamoL [Methocarbamol] 750 mg PO HS PRN 01/07/21 01/13/21 - Allergies Allergies/Adverse Reactions: Allergies Allergy/AdvReac Type Severity Reaction Status Date / Time codeine [Codeine] AdvReac Unknown Respiratory Verified 01/13/21 11:15 naproxen AdvReac Unknown Respiratory Verified 01/13/21 11:15 pregabalin [From Lyrica] AdvReac Unknown Respiratory Verified 01/13/21 11:15 - Social History Does the pt smoke?: Yes Smoking Status: Current every day smoker Does the pt drink ETOH?: No Does the pt have substance abuse?: No - Immunizations Immunizations are current?: Yes - POLST Patient has POLST: No PD ED PE EXPANDED - General General: Alert, No acute distress - Neck Neck: Supple w/out meningeal sx. No: Adenopathy - Cardiac Cardiac: Tachy, Radial strong equal, Pedal strong equal, Cap refill < 2 sec. No: Murmur Present - Respiratory Respiratory: Clear to ausultation lisa. No: Distress, Labored - Abdomen Abdomen: Normal Bowel sounds. No: Tender to palpation - Extremities Extremities: Normal. No: Deformity, Tenderness, Pedal edema bilateral, Right calf TTP/cord, Left calf TTP/cord - Neuro Neuro: Alert and Oriented X 3, CNII-XII intact - GCS Eye Opening: Spontaneous Motor: Obeys Commands Verbal: Oriented Total: 15 Results - Vitals Vitals: Vital Signs - 24 hr 01/13/21 01/13/21 11:07 11:30 Temperature 36.4 C L Heart Rate 119 H 116 H Respiratory 18 14 Rate Blood Pressure 136/90 H 131/89 H O2 Saturation 98 98 Oxygen O2 Source Room air - EKG (time done) 1108 Rate: Rate (enter#) (123) Rhythm: Sinus tachycardia Intervals: Normal ME. No: Prolonged QT Ischemia: Non specific changes Compare to prior EKG: Unchanged from prior EKG Computer interpretation: Agree with computer - Labs Labs: Laboratory Tests 01/13/21 01/13/21 01/13/21 11:44 11:44 11:44 WBC 8.9 RBC 5.00 Hgb 15.5 Hct 45.2 MCV 90.4 MCH 31.0 MCHC 34.3 RDW 13.0 Plt Count 316 MPV 9.3 Neut # (Auto) 5.4 Lymph # (Auto) 2.8 Stevens # (Auto) 0.5 Eos # (Auto) 0.1 Baso # (Auto) 0.0 Absolute Nucleated RBC 0.00 Nucleated RBC % 0.0 D-Dimer Sodium 138 Potassium 3.3 L Chloride 98 L Carbon Dioxide 27 Anion Gap 13.0 BUN 14 Creatinine 0.8 Estimated GFR (MDRD) 82 L Glucose 152 H Calcium 9.8 Total Bilirubin 0.7 AST 26 ALT 37 Alkaline Phosphatase 63 Troponin I High Sens < 2.3 L Total Protein 7.6 Albumin 4.5 Globulin 3.1 Albumin/Globulin Ratio 1.5 Lipase 27 01/13/21 11:44 WBC RBC Hgb Hct MCV MCH MCHC RDW Plt Count MPV Neut # (Auto) Lymph # (Auto) Stevens # (Auto) Eos # (Auto) Baso # (Auto) Absolute Nucleated RBC Nucleated RBC % D-Dimer 204.4 Sodium Potassium Chloride Carbon Dioxide Anion Gap BUN Creatinine Estimated GFR (MDRD) Glucose Calcium Total Bilirubin AST ALT Alkaline Phosphatase Troponin I High Sens Total Protein Albumin Globulin Albumin/Globulin Ratio Lipase - Rads (name of study) CXR Radiology: Final report received (No Acute cardiopulmonary process demonstrated) PD MEDICAL DECISION MAKING - ED course Complexity details: reviewed results, re-evaluated patient, d/w patient ED course: 35-year-old female who has a history of persistent tachycardia as well as hypertension presents the emergency department for evaluation of 4 days substernal chest pain as well as concerned that her blood pressure readings at home have been excessively high. She uses a wrist monitor and is found over the last 4 days that her blood pressures are reading in the 160s over the 100s. However here in the emergency department she seems to have a reasonable blood pressure control with blood pressures typically in the 130s over 90s. Her screening EKG does show sinus tachycardia unchanged from baseline. High- sensitivity troponin is not elevated. Her D-dimer is negative. Chest x-ray shows no acute focal opacities. Patient is following with a intelligent systems engineer who is planning to do an outpatient Holter monitor for evaluation of her persistent tachycardia as well as an echocardiogram and a stress test. At this time I would not make a change to her blood pressure management and recommend continued follow-up with her PCP and intelligent systems engineer. Emergent return precautions were discussed. Departure - Departure Disposition: Home, Self Care Clinical Impression: Tachycardia Chest pain Qualifiers: Chest pain type: unspecified Qualified Code(s): R07.9 - Chest pain, unspecified Condition: Stable Record reviewed to determine appropriate education?: Yes Follow-Up: Afsaneh Cervantes ND, LM [Primary Care Provider] - Comments: Jaz you are seen in the ER today for chest pain And concerns that your blood pressure has been too high at home. As we discussed your blood pressure measurements here in the emergency department are fairly normal typically in the 130s over 90s. It may be that the wrist monitor you are using at home is reading falsely high. Your EKG is unchanged from recent visits. Please continue to follow-up with a intelligent systems engineer for your Holter monitor, stress test and echocardiogram. Continue all other medications as previously prescribed. Return to the ER if you develop any fainting episodes, have chest pain that is worse with exertion uncontrolled vomiting fevers higher than 102.
--- NOTE | 2021-01-13 11:41 | XRAY Report ---
PROCEDURE: Chest 1 View X-Ray INDICATIONS: Chest pain TECHNIQUE: One view of the chest was acquired. COMPARISON: 11/07/2020 FINDINGS: Surgical changes and devices: None. Lungs and pleura: No pleural effusions or pneumothorax. Lungs are clear. Mediastinum: Mediastinal contours appear normal. Heart size is normal. Bones and chest wall: No suspicious bony lesions. Overlying soft tissues appear unremarkable. IMPRESSION: No acute cardiopulmonary process demonstrated radiographically. Reviewed by: Rigoberto Gardner MD on 01/13/2021 11:40 AM PDT Approved by: Rigoberto Gardner MD on 01/13/2021 11:40 AM PDT Station ID: [id number]
[2021-01-13 11:51] LABS: BASOPHILS % (AUTO) 0.5 %; EOSINOPHILS # (AUTO) 0.1 10^3/uL (0.0-0.7); EOSINOPHILS % (AUTO) 0.7 %; HCT - HEMATOCRIT 45.2 % (37.0-47.0); HGB - HEMOGLOBIN 15.5 g/dL (12.0-16.0); LYMPHOCYTES # (AUTO) 2.8 10^3/uL (1.5-3.5); LYMPHOCYTES % (AUTO) 31.7 %; MEAN CORPUSCULAR HGB CONC 34.3 g/dL (32.0-36.0); MEAN CORPUSCULAR VOLUME 90.4 fL (81.0-99.0); MEAN PLATELET VOLUME 9.3 fL (7.9-10.8); MONOCYTES # (AUTO) 0.5 10^3/uL (0.0-1.0); MONOCYTES % (AUTO) 5.6 %; NEUTROPHILS # (AUTO) 5.4 10^3/uL (1.5-6.6); NEUTROPHILS % (AUTO) 61.3 %; PLT - PLATELET COUNT 316 10^3/uL (130-450); WHITE BLOOD COUNT 8.9 x10^3/uL (4.8-10.8)
[2021-01-13 12:09] LABS: ALBUMIN 4.5 g/dL (3.2-5.5); ALBUMIN/GLOBULIN RATIO 1.5 (1.0-2.2); BILIRUBIN,TOTAL 0.7 mg/dL (0.2-1.0); CALCIUM 9.8 mg/dL (8.5-10.3); CREATININE 0.8 mg/dL (0.4-1.0); POTASSIUM 3.3 mmol/L (3.5-5.0); TOTAL PROTEIN 7.6 g/dL (6.7-8.2)
[2021-01-13 12:39] VITALS: BP 147/85
== END 2021-01-13 12:39 | disposition home or self-care (01) ==
LOC: ED 11:02
DX: R30.0 Dysuria (principal); R07.9 Chest pain, unspecified; F17.200 Nicotine dependence, unspecified, uncomplicated; E78.00 Pure hypercholesterolemia, unspecified
CPT/HCPCS: 36415; 80053; 80061; 83690; 83721; 84484; 85025; 85379; 93005; 99284

== ENCOUNTER 2021-02-10 12:53 | Emergency (ER) | payer MEDICAID ==
[2021-02-10 13:01] VITALS: BP 146/91
--- NOTE | 2021-02-10 13:44 | ED Physician Documentation ---
History of Present Illness - Stated complaint Stated Complaint: TOOTH PX - Chief complaint Chief Complaint: Heent - History obtained from History obtained from: Patient - History of Present Illness Timing: Today Pain level max: 8 Pain level now: 6 - Additonal information Additional information: Patient is a 35-year-old female who presents to the emergency department with ongoing left upper dental pain for the past several days. She has an appointment tomorrow to have the tooth pulled. She states increased swelling last night and concerned about infection. Took Percocet and amoxicillin last night. No fevers. No chills. Denies any possibility of . Worse with eating and drinking. Nothing makes it better. 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: LEEP (Cervical surgery) HEENT: Tonsil/Adenoidectomy - Present Medications Home Medications: Ambulatory Orders Medication Instructions Recorded Confirmed Albuterol Sulfate [Proventil Hfa 1 - 2 puffs INH Q4H PRN 01/06/19 01/13/21 Inhaler] diphenhydrAMINE [Benadryl] 50 mg PO HS 01/06/19 01/13/21 Chlorthalidone 25 mg PO DAILY 11/08/20 01/13/21 DULoxetine [Cymbalta] 60 mg PO DAILY 11/08/20 01/13/21 Nitroglycerin [Nitrostat] 0.4 mg SL Q5MIN PRN #20 tablet 11/08/20 01/13/21 Potassium Chloride 10 meq PO DAILY 11/08/20 01/13/21 Atorvastatin Calcium [Lipitor] 80 mg ORAL DAILY 01/07/21 01/13/21 Melatonin 3 mg PO HS PRN 01/07/21 01/13/21 Varenicline Tartrate [Chantix] 1 mg PO DAILY 01/07/21 01/13/21 methocarbamoL [Methocarbamol] 750 mg PO HS PRN 01/07/21 01/13/21 Amox/Clav 875/125 [Augmentin] 1 tab PO Q12H #20 tablet 02/10/21 Oxycodone HCl/Acetaminophen 1 - 2 each PO Q6H PRN #9 tablet 02/10/21 [Percocet 5-325 mg Tablet] - Allergies Allergies/Adverse Reactions: Allergies Allergy/AdvReac Type Severity Reaction Status Date / Time codeine [Codeine] AdvReac Unknown Respiratory Verified 02/10/21 13:01 naproxen AdvReac Unknown Respiratory Verified 02/10/21 13:01 pregabalin [From Lyrica] AdvReac Unknown Respiratory Verified 02/10/21 13:01 - Social History Does the pt smoke?: Yes Smoking Status: Current every day smoker Does the pt drink ETOH?: No Does the pt have substance abuse?: No - Immunizations Immunizations are current?: Yes - POLST Patient has POLST: No PD ED PE NORMAL - Vitals Vital signs reviewed: Yes - General General: Alert and oriented X 3, No acute distress - HEENT HEENT: Moist mucous membranes - Neck Neck: Supple, no meningeal sign - Derm Derm: Warm and dry - Neuro Neuro: Alert and oriented X 3 - Psych Psych: Normal mood, Normal affect PD ED PE EXPANDED - HEENT HEENT Visual: 1 - tenderness (Swelling, tenderness. Fractured and decaying tooth. No drainable abscess.) Results - Vitals Vitals: Vital Signs - 24 hr 02/10/21 12:57 Temperature 37.0 C Heart Rate 128 H Respiratory 16 Rate Blood Pressure 146/91 H O2 Saturation 99 Oxygen O2 Source Room air PD MEDICAL DECISION MAKING - ED course Complexity details: considered differential, d/w patient ED course: 35-year-old female presents to the emergency department with left upper dental pain. No drainable abscess here. She has having the tooth extracted tomorrow with her dentist. We will place her on antibiotics and pain medication for home. No facial swelling. No evidence of orbital cellulitis. Patient counseled regarding signs and symptoms for which I believe and urgent re- evaluation would be necessary. Patient with good understanding of and agreement to plan and is comfortable going home at this time This document was made in part using voice recognition software. While efforts are made to proofread this document, sound alike and grammatical errors may occur. Departure - Departure Disposition: 01 Home, Self Care Clinical Impression: Dental caries Condition: Good Instructions: ED Tooth Pain Follow-Up: Afsaneh Cervantes, HOLLIE, LM [Primary Care Provider] - Prescriptions: Amox/Clav 875/125 [Augmentin] 1 tab PO Q12H #20 tablet Oxycodone HCl/Acetaminophen [Percocet 5-325 mg Tablet] 1 - 2 each PO Q6H PRN #9 tablet PRN Reason: pain Comments: Take all antibiotics until gone. Please follow-up with your dentist tomorrow. Return if you worsen. I am prescribing a short course of narcotic pain medication for you. These are potentially dangerous and addictive medications that should be used carefully. These medications may constipate you. Take an mskv-bco-sduvkba stool softener (docusate) twice daily with plenty of water while taking these medications. If you go 24 hours without a bowel movement, take ybnb-ebo-uygnjmd miralax, per package instructions. Do not drink or drive while taking these medications. If you received narcotic or sedating medications while in the emergency department, do not drive for 24 hours. Store this medication in a safe, secure place and out of reach of children. It is a violation of federal law to give or sell this medication to another person or to use in a manner other than prescribed. The ED will not refill narcotic prescriptions, including prescriptions lost or stolen. To dispose of unwanted medications: 1. [facility] at [address] in [place] has a medication drop box. They accept prescription medications (in pill form) Wednesday through Wednesday 9:00 a.m. to 5:00 p.m. 2. The [facility] [employer] [facility] accepts prescription medications (in pill form only) for disposal year round. Call for more information. 3. Contact the [facility] for the next [facility] sponsored prescription drug collection event. , [phone], or [phone];
== END 2021-02-10 13:52 | disposition home or self-care (01) ==
LOC: ED 12:53
DX: K02.9 Dental caries, unspecified (principal); S02.5XXA Fracture of tooth (traumatic), initial encounter for closed fracture; X58.XXXA Exposure to other specified factors, initial encounter; I10 Essential (primary) hypertension; F17.200 Nicotine dependence, unspecified, uncomplicated
CPT/HCPCS: 99282; 99284

== ENCOUNTER 2021-03-29 19:41 | Emergency (ER) | payer MEDICAID ==
--- NOTE | 2021-03-29 20:22 | ED Physician Documentation ---
History of Present Illness - Stated complaint Stated Complaint: NECK PX - Chief complaint Chief Complaint: Ext Problem - History obtained from History obtained from: Patient - Additonal information Additional information: 2 Weeks of predominantly right-sided neck pain with burning over the right neck. She was scheduled for an MRI, but for some reason it fell through potentially because of preauthorization issues. Pain is persistent and severe despite taking Tylenol, ibuprofen, and aspirin. There is no radiation of the pain in the arm but she does have chronic numbness of the right hand. 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 (Cervical surgery) HEENT: Tonsil/Adenoidectomy - Present Medications Home Medications: Ambulatory Orders Medication Instructions Recorded Confirmed Albuterol Sulfate [Proventil Hfa 1 - 2 puffs INH Q4H PRN 01/06/19 03/29/21 Inhaler] diphenhydrAMINE [Benadryl] 50 mg PO HS 01/06/19 03/29/21 Chlorthalidone 25 mg PO DAILY 11/08/20 03/29/21 DULoxetine [Cymbalta] 60 mg PO DAILY 11/08/20 03/29/21 Nitroglycerin [Nitrostat] 0.4 mg SL Q5MIN PRN #20 tablet 11/08/20 03/29/21 Potassium Chloride 10 meq PO DAILY 11/08/20 03/29/21 Atorvastatin Calcium [Lipitor] 80 mg ORAL DAILY 01/07/21 03/29/21 Melatonin 3 mg PO HS PRN 01/07/21 03/29/21 Varenicline Tartrate [Chantix] 1 mg PO DAILY 01/07/21 03/29/21 methocarbamoL [Methocarbamol] 750 mg PO HS PRN 01/07/21 03/29/21 Amox/Clav 875/125 [Augmentin] 1 tab PO Q12H #20 tablet 02/10/21 03/29/21 Oxycodone HCl/Acetaminophen 1 - 2 each PO Q6H PRN #9 tablet 02/10/21 03/29/21 [Percocet 5-325 mg Tablet] Butalb/Acetaminophen/Caffeine 1 each PO Q4H PRN #20 cap 03/29/21 [Fioricet 50-300-40 mg Capsule] - Allergies Allergies/Adverse Reactions: Allergies Allergy/AdvReac Type Severity Reaction Status Date / Time codeine [Codeine] AdvReac Unknown Respiratory Verified 03/29/21 19:53 naproxen AdvReac Unknown Respiratory Verified 03/29/21 19:53 pregabalin [From Lyrica] AdvReac Unknown Respiratory Verified 03/29/21 19:53 - Social History Does the pt smoke?: Yes Smoking Status: Current every day smoker Does the pt drink ETOH?: No Does the pt have substance abuse?: No - Immunizations Immunizations are current?: Yes - POLST Patient has POLST: No PD ED PE NORMAL - Vitals Vital signs reviewed: Yes - General General: Alert and oriented X 3, Other (She is tachycardic, but that is a chronic phenomenon looking at old charts) - HEENT HEENT: PERRL, EOMI - Neck Neck: No bony TTP, Other (Filler tenderness of the right sternocleidomastoid with difficulty with rotation of the neck.) - Extremities Extremities: Other (diminished sensation in the right hand and forearm but not absent, not consistent with a specific dermatome. 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, thumb extension, interosseous, and flexion extension of the wrist.) - Neuro Neuro: Alert and oriented X 3, Normal speech Eye Opening: Spontaneous Motor: Obeys Commands Verbal: Oriented GCS Score: 15 Results - Vitals Vitals: Vital Signs - 24 hr 03/29/21 03/29/21 19:48 22:03 Temperature 36.0 C L 37.0 C Heart Rate 140 H 68 Respiratory 20 18 Rate Blood Pressure 144/88 H 121/73 O2 Saturation 100 100 Oxygen O2 Source Room air Procedures - Regional nerve block Nerve block site: Other (Occipital) Right / left: Both Nerve block anesthesia: Lidocaine 1% PD MEDICAL DECISION MAKING - ED course ED course: 36-year-old woman with chronic neck pain that seems muscular. She was supposed to get an MRI for this but it fell through. Requesting CT imaging. Done and negative. Departure - Departure Disposition: Home, Self Care Clinical Impression: Cervical radiculopathy Condition: Good Record reviewed to determine appropriate education?: Yes Instructions: ED Spasm Neck No Injury Prescriptions: Butalb/Acetaminophen/Caffeine [Fioricet 50-300-40 mg Capsule] 1 each PO Q4H PRN #20 cap PRN Reason: Headache Comments: [facility] [place]. Call your doctor to arrange a follow-up appointment, make the next available appointment. In the interim, return anytime if worse or if new symptoms develop. Discharge Date/Time: 03/29/21 22:03
--- NOTE | 2021-03-29 21:27 | CT Report ---
PROCEDURE: CERVICAL SPINE WO INDICATIONS: neck pain TECHNIQUE: Noncontrast 3 mm thick sections acquired from the skull base to the T4 level. Sagittal and coronal r eformats were then constructed. For radiation dose reduction, the following was used: automated exp osure control, adjustment of mA and/or kV according to patient size. COMPARISON: CT cervical spine, 06/09/2018. FINDINGS: Image quality: Excellent. Bones: No fractures or dislocations. There is straightening of cervical curvature. Visualized super ior ribs are intact. Soft tissues: Prevertebral soft tissues are normal in thickness. No paravertebral hematomas. No ap ical pneumothoraces. IMPRESSION: 1. No cervical spine fracture. 2. No prevertebral soft tissue thickening. Reviewed by: Nyla Page MD on 03/29/2021 9:26 PM PDT Approved by: Nyla Page MD on 03/29/2021 9:26 PM PDT Station ID: [id number]
[2021-03-29] MEDS ORDERED: oxyCODONE/ACET 5/325 Prepack 4 PO STA (21:41)
[2021-03-29] MEDS ORDERED: LIDOCAINE 1%-EPI 1:100000 20 ML MDV SUBQ STA (21:41)
[2021-03-29 22:03] VITALS: BP 121/73
== END 2021-03-29 22:03 | disposition home or self-care (01) ==
LOC: ED 19:41
DX: M54.12 Radiculopathy, cervical region (principal); I10 Essential (primary) hypertension; F17.200 Nicotine dependence, unspecified, uncomplicated
CPT/HCPCS: 64405; 64450

== ENCOUNTER 2021-07-11 16:34 | Emergency (ER) | payer MEDICAID ==
[2021-07-11 16:54] VITALS: BP 128/93
--- NOTE | 2021-07-11 16:58 | ED Physician Documentation ---
PD HPI FOCAL NEURO - Stated complaint Stated Complaint: UNABLE TO TURN HEAD - Chief complaint Chief Complaint: Neuro - History obtained from History obtained from: Patient - Additional information Additional information: 36-year-old woman who has now subacute to chronic right-sided neck pain with decreased strength and sensation in the right arm. She has had a relatively thorough work-up including EMG testing which she states shows only carpal tunnel syndrome bilaterally and then she had an MRI which we went over the report for showing multilevel disease but no evidence of spinal cord impingement and she has 2 levels where she has mild right and moderate left neuroforaminal narrowing and one level of an annular tear. She is pending follow-up with neurology, primary care, and spine specialists. She presents tonight with uncontrolled right neck pain radiating into the right arm, but also needs a note for work pending a formal disability evaluation. 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4 mg SL Q5MIN PRN #20 tablet 11/08/20 03/29/21 Potassium Chloride 10 meq PO DAILY 11/08/20 03/29/21 Atorvastatin Calcium [Lipitor] 80 mg ORAL DAILY 01/07/21 03/29/21 Melatonin 3 mg PO HS PRN 01/07/21 03/29/21 Varenicline Tartrate [Chantix] 1 mg PO DAILY 01/07/21 03/29/21 methocarbamoL [Methocarbamol] 750 mg PO HS PRN 01/07/21 03/29/21 Amox/Clav 875/125 [Augmentin] 1 tab PO Q12H #20 tablet 02/10/21 03/29/21 Oxycodone HCl/Acetaminophen 1 - 2 each PO Q6H PRN #9 tablet 02/10/21 03/29/21 [Percocet 5-325 mg Tablet] Butalb/Acetaminophen/Caffeine 1 each PO Q4H PRN #20 cap 03/29/21 [Fioricet 50-300-40 mg Capsule] HYDROcod/ACETAM 5/325 [Seymour 5/325] 1 - 2 tab PO Q6H PRN #15 tablet 07/11/21 - Allergies Allergies/Adverse Reactions: Allergies Allergy/AdvReac Type Severity Reaction Status Date / Time codeine [Codeine] AdvReac Unknown Respiratory Verified 03/29/21 19:53 naproxen AdvReac Unknown Respiratory Verified 03/29/21 19:53 pregabalin [From Lyrica] AdvReac Unknown Respiratory Verified 03/29/21 19:53 - Social History Does the pt smoke?: Yes Smoking Status: Current every day smoker Does the pt drink ETOH?: No Does the pt have substance abuse?: No - Immunizations Immunizations are current?: Yes - POLST Patient has POLST: No PD ED PE NORMAL - Vitals Vital signs reviewed: Yes - General General: Alert and oriented X 3, No acute distress - HEENT HEENT: PERRL, EOMI - Neck Neck: Supple, no meningeal sign, Other (No midline neck tenderness, she does have tenderness to the right side of the neck.) - Extremities Extremities: Other (She is holding the right arm flexed at the wrist and elbow. She seems to have pain with any range of motion of the right arm kind of diffusely, but intact and equal valet attendant strength, thumb extension, interosseous strength.) - Neuro Neuro: Alert and oriented X 3, Normal speech - Psych Psych: Normal mood, Normal affect Results - Vitals Vitals: Vital Signs - 24 hr 07/11/21 07/11/21 16:42 16:54 Temperature 37.0 C 37.0 C Heart Rate 151 H 134 H Respiratory 18 18 Rate Blood Pressure 128/93 H 128/93 H O2 Saturation 100 100 Oxygen O2 Source Room air PD MEDICAL DECISION MAKING - ED course ED course: 36-year-old woman with now chronic neck pain and radicular symptoms despite and relatively unimpressive MRI report that she has with her. Does need some pain medication pending follow-up. I am prescribing a short course of short-acting opioid pain medication for this patient. I have reviewed the patients FILL MANAGER and no concerning findings were noted. I have discussed that the opioids are for short term therapy only, and will not be refilled from the ED. Departure - Departure Disposition: Home, Self Care Clinical Impression: Neck pain Condition: Good Record reviewed to determine appropriate education?: Yes Instructions: ED Neck Pain No Trauma Prescriptions: HYDROcod/ACETAM 5/325 [Seymour 5/325] 1 - 2 tab PO Q6H PRN #15 tablet PRN Reason: Pain Comments: [facility] in [place]. Follow-up with your primary care physician, return for new or worsening symptoms. I am prescribing a short course of narcotic pain medication for you. These are potentially dangerous and addictive medications that should be used carefully. These medications may constipate you. Take an hjlb-wmt-gneqocl stool softener (docusate) twice daily with plenty of water while taking these medications. If you go 24 hours without a bowel movement, take mowq-qfq-ubhuqxf miralax, per package instructions. Do not drink or drive while taking these medications. If you received narcotic or sedating medications while in the emergency department, do not drive for 24 hours. Store this medication in a safe, secure place and out of reach of children. It is a violation of federal law to give or sell this medication to another p erson or to use in a manner other than prescribed. The ED will not refill narcotic prescriptions, including prescriptions lost or stolen. To dispose of unwanted medications: 1. [facility] at [address] in [place] has a medication drop box. They accept prescription medications (in pill form) Wednesday through Wednesday 9:00 a.m. to 5:00 p.m. 2. The [facility] accepts prescription medications (in pill form only) for disposal year round. Call for more information. 3. Contact the [facility] for the next [facility] sponsored prescription drug collection event. , [phone], or [phone]; Note that many narcotic pain relievers also contain Tylenol/acetaminophen. Please ensure that your total dose of acetaminophen from all sources does not exceed 3 g (3000 mg) per day. Forms: Activity restrictions
== END 2021-07-11 17:05 | disposition home or self-care (01) ==
LOC: ED 16:34
DX: M54.2 Cervicalgia (principal); G89.29 Other chronic pain; M54.12 Radiculopathy, cervical region; I10 Essential (primary) hypertension; F17.200 Nicotine dependence, unspecified, uncomplicated
CPT/HCPCS: 99282; 99283

== ENCOUNTER 2021-08-15 12:53 | Outpatient (CLI) | payer MEDICAID ==
[2021-08-15 13:44] LABS: CHOLESTEROL 217 mg/dL; HDL CHOLESTEROL 36 mg/dL; LDL CHOLESTEROL,CALCULATED 152 mg/dL; LDL/HDL RATIO 4.2 (<4.4); TRIGLYCERIDES 145 mg/dL; VLDL CHOLESTEROL 29 mg/dL
== END 2021-08-15 12:54 | disposition home or self-care (01) ==
LOC: LAB 12:53
PROVIDERS: ATTEND Naturopath
DX: E78.00 Pure hypercholesterolemia, unspecified (principal)
CPT/HCPCS: 36415; 80061; 83721

== ENCOUNTER 2021-08-18 12:01 | Emergency (ER) | payer MEDICAID ==
[2021-08-18] MEDS ORDERED: DEXAMETHASONE 10 MG/ML VIAL PO STA (12:54)
[2021-08-18] MEDS ORDERED: CHERRY SYRUP 10 ML UDC PO ONE (12:54)
--- NOTE | 2021-08-18 12:55 | ED Physician Documentation ---
PD HPI NECK PAIN - Stated complaint Stated Complaint: BI LAT HAND PX - Chief complaint Chief Complaint: Neuro - History obtained from History obtained from: Patient - History of Present Illness Timing - onset: How many weeks ago (2) Timing - duration: Weeks (2) Timing - details: Gradual onset, Still present Location: Mid, Lower, Right Quality: Pain, Sharp, Similar to prior episodes Associated symptoms: Other (burning sensation to the hands). No: Fever, Weakness, Numbness, Incontinent of urine, Unable to urinate, Hematuria, Incontinent of stool Improves with: Rest, Position Worsened by: Movement, Twisting Similar symptoms before: Diagnosis (cervical radiculopathy) Recently seen: Clinic - Additional information Additional information: 36-year-old female with a diagnosis of cervical radiculopathy has developed increased pain and stiffness to her neck as well as burning sensation to both hands about 2 weeks ago. She has had luck previously with a dose of dexamethasone for improvement in her symptoms and she think she may need some of this as well. She has been in to see the neurologist has been shuffled around and has not seen the appropriate provider yet for more aggressive treatment. Review of Systems Constitutional: denies: Fever Eyes: denies: Decreased vision Ears: denies: Ear pain Nose: denies: Rhinorrhea / runny nose, Congestion Throat: denies: Sore throat Cardiac: denies: Chest pain / pressure, Palpitations Respiratory: reports: Cough (X 2 months smokes and has no color to the sputum). denies: Dyspnea GI: denies: Abdominal Pain, Nausea, Vomiting : denies: Dysuria, Frequency Skin: denies: Rash Musculoskeletal: reports: Neck pain, Extremity pain. 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 : None HEENT: Chronic hearing loss Psych: Depression Musculoskeletal: Fibromyalgia, Chronic back pain Derm: None - Past Surgical History Past Surgical History: Yes /CASE FILLER: LEEP (Cervical surgery) HEENT: Tonsil/Adenoidectomy - Present Medications Home Medications: Ambulatory Orders Medication Instructions Recorded Confirmed Albuterol Sulfate [Proventil Hfa 1 - 2 puffs INH Q4H PRN 01/06/19 08/18/21 Inhaler] diphenhydrAMINE [Benadryl] 50 mg PO HS 01/06/19 08/18/21 Chlorthalidone 25 mg PO DAILY 11/08/20 08/18/21 DULoxetine [Cymbalta] 60 mg PO DAILY 11/08/20 08/18/21 Nitroglycerin [Nitrostat] 0.4 mg SL Q5MIN PRN #20 tablet 11/08/20 08/18/21 Potassium Chloride 10 meq PO DAILY 11/08/20 08/18/21 Atorvastatin Calcium [Lipitor] 80 mg ORAL DAILY 01/07/21 08/18/21 Melatonin 3 mg PO HS PRN 01/07/21 08/18/21 Varenicline Tartrate [Chantix] 1 mg PO DAILY 01/07/21 08/18/21 methocarbamoL [Methocarbamol] 750 mg PO HS PRN 01/07/21 08/18/21 Oxycodone HCl/Acetaminophen 1 - 2 each PO Q6H PRN #9 tablet 02/10/21 08/18/21 [Percocet 5-325 mg Tablet] Amitriptyline [Elavil] 10 mg PO HS #30 tablet 08/18/21 - Allergies Allergies/Adverse Reactions: Allergies Allergy/AdvReac Type Severity Reaction Status Date / Time codeine [Codeine] AdvReac Unknown Respiratory Verified 08/18/21 12:12 naproxen AdvReac Unknown Respiratory Verified 08/18/21 12:12 pregabalin [From Lyrica] AdvReac Unknown Respiratory Verified 08/18/21 12:12 - Social History Does the pt smoke?: Yes Smoking Status: Current every day smoker Does the pt drink ETOH?: No Does the pt have substance abuse?: No - Immunizations Immunizations are current?: Yes - POLST Patient has POLST: No PD ED PE NORMAL - Vitals Vital signs reviewed: Yes (Hypertensive and tachycardic) - General General: Alert and oriented X 3, No acute distress, Well developed/nourished - HEENT HEENT: Atraumatic, PERRL, EOMI - Neck Neck: Supple, no meningeal sign, No bony TTP, Other (Mild tenderness to the paraspinous muscles bilaterally) - Cardiac Cardiac: RRR, No murmur - Respiratory Respiratory: No respiratory distress, Clear bilaterally - Abdomen Abdomen: Soft, Non tender - Back Back: No CVA TTP, No spinal TTP - Derm Derm: Normal color, Warm and dry, No rash - Extremities Extremities: No deformity, No edema - Neuro Neuro: Alert and oriented X 3, 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, No motor deficit, No sensory deficit, Normal speech Eye Opening: Spontaneous Motor: Obeys Commands Verbal: Oriented GCS Score: 15 - Psych Psych: Normal mood, Normal affect Results - Vitals Vitals: Vital Signs - 24 hr 08/18/21 12:12 Temperature 37.1 C Heart Rate 120 H Respiratory 18 Rate Blood Pressure 188/106 H O2 Saturation 100 Oxygen O2 Source Room air PD MEDICAL DECISION MAKING - ED course Complexity details: reviewed old records, reviewed results, re-evaluated patient, considered differential, d/w patient ED course: 36-year-old female with cervical radiculopathy has increased symptoms over the past 2 weeks and she is administered a dose of dexamethasone here in the emergency department we will place her into a soft collar as well. Departure - Departure Disposition: Home, Self Care Clinical Impression: Cervical radiculopathy Condition: Stable Instructions: ED Cervical Radiculopathy Follow-Up: Afsaneh Cervantes, HOLLIE, LM [Primary Care Provider] - Prescriptions: Amitriptyline [Elavil] 10 mg PO HS #30 tablet Comments: Jaz today it looks like you have symptoms of cervical radiculopathy and we have given you a dose of dexamethasone. This may be helpful for several days. I have prescribed some Amitriptyline to take at night and this may be helpful over a longer period of time. This has been e-scribed to [facility] in [place].
[2021-08-18 13:21] VITALS: BP 156/105
== END 2021-08-18 13:13 | disposition home or self-care (01) ==
LOC: ED 12:01
DX: M54.12 Radiculopathy, cervical region (principal); I10 Essential (primary) hypertension; F17.200 Nicotine dependence, unspecified, uncomplicated
CPT/HCPCS: 99282; 99283; A9270

== ENCOUNTER 2021-09-29 10:22 | Emergency (ER) | payer MEDICAID ==
[2021-09-29] MEDS ORDERED: HYDROmorphone 1 MG/ML CARPUJECT IM STA (12:06)
[2021-09-29] MEDS ORDERED: KETOROLAC 60 MG/2 ML VIAL IM STA (12:06)
[2021-09-29] MEDS ORDERED: methocarbamoL 500 MG TABLET PO STA (12:06)
[2021-09-29] MEDS ORDERED: DEXAMETHASONE 10 MG/ML VIAL IM STA (12:07)
--- NOTE | 2021-09-29 12:42 | ED Physician Documentation ---
History of Present Illness - Stated complaint Stated Complaint: LUMBAR PX, MOSTLY LT SIDE - Chief complaint Chief Complaint: Back Pain - History obtained from History obtained from: Patient - Additonal information Additional information: The patient comes to the emergency department with chief complaint of back pain involving her midline lumbar region and just to the left started a few days ago. Patient states she was under her mom's car, trying to fix something and that her torso was somewhat twisted. She states that while in that position, she had a cough and she felt a pain in her low back. She states that she has a longstanding history of low back issues and that she has had symptoms like this before. She states that she has at times had bladder incontinence when she has had flareups of her back pain before and that she is had a couple of episodes of incontinence this time as well. No bowel incontinence. The patient denies any weakness, numbness, or tingling in her left lower extremity. No right-sided symptoms. She states that occasionally, the pain shoots into her left posterior thigh. No other complaints at this time. Review of Systems Ten Systems: 10 systems reviewed and negative Constitutional: reports: Reviewed and negative Eyes: reports: Reviewed and negative Ears: reports: Reviewed and negative Nose: reports: Reviewed and negative Throat: reports: Reviewed and negative Cardiac: reports: Reviewed and negative Respiratory: reports: Reviewed and negative GI: reports: Reviewed and negative : reports: Reviewed and negative Skin: reports: Reviewed and negative Musculoskeletal: reports: Back pain Neurologic: reports: Reviewed and negative Psychiatric: reports: Reviewed and negative Endocrine: reports: Reviewed and negative Immunocompromised: reports: Reviewed and negative PD PAST MEDICAL HISTORY - Past Medical History Cardiovascular: Hypertension, High cholesterol, Arrhythmia Respiratory: None Neuro: Migraines Endocrine/Autoimmune: None GI: None 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 : None HEENT: Chronic hearing loss Psych: Depression Musculoskeletal: Fibromyalgia, Chronic back pain Derm: None - Past Surgical History Past Surgical History: 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: LEEP (Cervical surgery) HEENT: Tonsil/Adenoidectomy - Present Medications Home Medications: Ambulatory Orders Medication Instructions Recorded Confirmed Albuterol Sulfate [Proventil Hfa 1 - 2 puffs INH Q4H PRN 01/06/19 08/18/21 Inhaler] diphenhydrAMINE [Benadryl] 50 mg PO HS 01/06/19 08/18/21 Chlorthalidone 25 mg PO DAILY 11/08/20 08/18/21 DULoxetine [Cymbalta] 60 mg PO DAILY 11/08/20 08/18/21 Nitroglycerin [Nitrostat] 0.4 mg SL Q5MIN PRN #20 tablet 11/08/20 08/18/21 Potassium Chloride 10 meq PO DAILY 11/08/20 08/18/21 Atorvastatin Calcium [Lipitor] 80 mg ORAL DAILY 01/07/21 08/18/21 Melatonin 3 mg PO HS PRN 01/07/21 08/18/21 Varenicline Tartrate [Chantix] 1 mg PO DAILY 01/07/21 08/18/21 methocarbamoL [Methocarbamol] 750 mg PO HS PRN 01/07/21 08/18/21 Oxycodone HCl/Acetaminophen 1 - 2 each PO Q6H PRN #9 tablet 02/10/21 08/18/21 [Percocet 5-325 mg Tablet] Amitriptyline [Elavil] 10 mg PO HS #30 tablet 08/18/21 HYDROcod/ACETAM 5/325 [[place] 5/325] 1 - 2 tablet PO Q6H PRN #14 tablet 09/29/21 methocarbamoL [Methocarbamol] 750 mg PO BID PRN #20 tablet 09/29/21 predniSONE [Deltasone] 60 mg PO DAILY 5 Days #15 tablet 09/29/21 - Allergies Allergies/Adverse Reactions: Allergies Allergy/AdvReac Type Severity Reaction Status Date / Time codeine [Codeine] AdvReac Unknown Respiratory Verified 08/18/21 12:12 naproxen AdvReac Unknown Respiratory Verified 08/18/21 12:12 pregabalin [From Lyrica] AdvReac Unknown Respiratory Verified 08/18/21 12:12 - Social History Does the pt smoke?: Yes Smoking Status: Current every day smoker Does the pt drink ETOH?: No Does the pt have substance abuse?: No - Immunizations Immunizations are current?: Yes - POLST Patient has POLST: No PD ED PE NORMAL - Vitals Vital signs reviewed: Yes - General General: Alert and oriented X 3, No acute distress, Well developed/nourished - HEENT HEENT: Atraumatic, PERRL, EOMI, Moist mucous membranes - Neck Neck: Supple, no meningeal sign - Respiratory Respiratory: No respiratory distress - Back Back: No spinal TTP - Derm Derm: Normal color, Warm and dry, No rash - Extremities Extremities: No deformity, No edema, No calf tenderness / cord - Neuro Neuro: Alert and oriented X 3, 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 She did not have any incontinence of bowel or bladder here. We discussed symptomatic management at home and the usual indications for return and follow-up. Departure - Departure Disposition: 01 Home, Self Care Clinical Impression: Lumbar strain Qualifiers: Encounter type: initial encounter Qualified Code(s): S39.012A - Strain of muscle, fascia and tendon of lower back, initial encounter Condition: Stable Instructions: ED Sprain Strain Lumbar Prescriptions: predniSONE [Deltasone] 60 mg PO DAILY 5 Days #15 tablet methocarbamoL [Methocarbamol] 750 mg PO BID PRN #20 tablet PRN Reason: Spasms HYDROcod/ACETAM 5/325 [[place] 5/325] 1 - 2 tablet PO Q6H PRN #14 tablet PRN Reason: Pain Comments: Your prescriptions have been electronically transmitted to [facility] pharmacy in [place]. Please follow-up with your primary care physician if you are not feeling better in the next week. Discharge Date/Time: 09/29/21 12:49
[2021-09-29 12:49] VITALS: BP 130/89
== END 2021-09-29 12:49 | disposition home or self-care (01) ==
LOC: ED 10:22
DX: S39.012A Strain of muscle, fascia and tendon of lower back, initial encounter (principal); X50.1XXA Overexertion from prolonged static or awkward postures, initial encounter; Y93.89 Activity, other specified; I10 Essential (primary) hypertension; F17.200 Nicotine dependence, unspecified, uncomplicated
CPT/HCPCS: 96372; 99283; 99284; A9270

== ENCOUNTER 2021-09-29 23:30 | Emergency (ER) | payer MEDICAID ==
--- NOTE | 2021-09-30 00:45 | ED Physician Documentation ---
PD HPI FOCAL NEURO - Stated complaint Stated Complaint: NUMB FACE - Chief complaint Chief Complaint: General - History obtained from History obtained from: Patient - History of Present Illness Timing - onset: Yesterday Timing - duration: Days (1) Timing - details: Gradual onset (Onset of some numbness around the face both sides yesterday which increased today to include arms and back of the legs and some on the trunk.History of pinched nerves neck and low back, with some neuropathies but this feels different.) Severity of deficit: Moderate Weakness: No: Face, Arm, Leg Numbness: Face, Hand, Leg, Right, Left Associated symptoms: Headache (has developed some headache this evening that she says feels migrainous. Did not have headache at outset of numbness.) Contributing factors: positive: Other (had chlorthalidone dose increased recently.) Baseline status: positive: A&OX3, ambulatory, indep Similar symptoms before: Has not had sx before (has not had diffuse numbness li ke this before.) Recently seen: Emergency Dept (seen earlier today for back pain and Rx with decadron and muscle relaxant. had had the nubmness developing prior to that, but was not prominent. It increased more this evening.) Review of Systems Constitutional: reports: Myalgias (chronic). denies: Fever, Chills Nose: denies: Rhinorrhea / runny nose, Congestion Throat: denies: Sore throat Cardiac: denies: Chest pain / pressure, Palpitations Respiratory: denies: Dyspnea Musculoskeletal: reports: Back pain (chronic) Neurologic: reports: Numbness, Headache (this evening. BEAN did not precede the numbness.). denies: Focal weakness PD PAST MEDICAL HISTORY - Past Medical History Cardiovascular: Hypertension, High cholesterol, Arrhythmia Respiratory: None Neuro: Migraines, Other (she states has had MRI brain in recent past to al for MS, that was normal. 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: LEEP (Cervical surgery) HEENT: Tonsil/Adenoidectomy - Present Medications Home Medications: Ambulatory Orders Medication Instructions Recorded Confirmed Albuterol Sulfate [Proventil Hfa 1 - 2 puffs INH Q4H PRN 01/06/19 09/30/21 Inhaler] diphenhydrAMINE [Benadryl] 50 mg PO HS 01/06/19 09/30/21 Chlorthalidone 25 mg PO DAILY 11/08/20 09/30/21 DULoxetine [Cymbalta] 60 mg PO DAILY 11/08/20 09/30/21 Nitroglycerin [Nitrostat] 0.4 mg SL Q5MIN PRN #20 tablet 11/08/20 09/30/21 Potassium Chloride 10 meq PO DAILY 11/08/20 09/30/21 Atorvastatin Calcium [Lipitor] 80 mg ORAL DAILY 01/07/21 09/30/21 Melatonin 3 mg PO HS PRN 01/07/21 09/30/21 Varenicline Tartrate [Chantix] 1 mg PO DAILY 01/07/21 09/30/21 methocarbamoL [Methocarbamol] 750 mg PO HS PRN 01/07/21 09/30/21 Oxycodone HCl/Acetaminophen 1 - 2 each PO Q6H PRN #9 tablet 02/10/21 09/30/21 [Percocet 5-325 mg Tablet] Amitriptyline [Elavil] 10 mg PO HS #30 tablet 08/18/21 09/30/21 HYDROcod/ACETAM 5/325 [[place] 5/325] 1 - 2 tablet PO Q6H PRN #14 tablet 09/29/21 09/30/21 methocarbamoL [Methocarbamol] 750 mg PO BID PRN #20 tablet 09/29/21 09/30/21 predniSONE [Deltasone] 60 mg PO DAILY 5 Days #15 tablet 09/29/21 09/30/21 - Allergies Allergies/Adverse Reactions: Allergies Allergy/AdvReac Type Severity Reaction Status Date / Time codeine [Codeine] AdvReac Unknown Respiratory Verified 09/29/21 23:33 naproxen AdvReac Unknown Respiratory Verified 09/29/21 23:33 pregabalin [From Lyrica] AdvReac Unknown Respiratory Verified 09/29/21 23:33 - Social History Does the pt smoke?: Yes Smoking Status: Current every day smoker Does the pt drink ETOH?: No Does the pt have substance abuse?: No - Immunizations Immunizations are current?: Yes - POLST Patient has POLST: No PD ED PE NORMAL - Vitals Vital signs reviewed: Yes - General General: Alert and oriented X 3, No acute distress, Well developed/nourished - HEENT HEENT: PERRL, EOMI - Neck Neck: Supple, no meningeal sign, No adenopathy, Thyroid normal, No bruit - Cardiac Cardiac: RRR, No murmur - Respiratory Respiratory: Clear bilaterally - Abdomen Abdomen: Soft, Non tender - Derm Derm: Normal color, Warm and dry - Neuro Neuro: Alert and oriented X 3, 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 ) Results - Vitals Vitals: Vital Signs - 24 hr 09/29/21 09/29/21 09/30/21 23:33 23:37 01:37 Temperature 36.5 C 36.5 C Heart Rate 120 H 120 H 97 Respiratory 16 16 16 Rate Blood Pressure 145/97 H 145/97 H 141/91 H O2 Saturation 100 100 99 Oxygen O2 Source Room air - Labs Labs: Laboratory Tests 09/30/21 01:17 Sodium 134 L Potassium 2.9 L Chloride 100 L Carbon Dioxide 22 Anion Gap 12.0 BUN 16 Creatinine 0.7 Estimated GFR (MDRD) 95 Glucose 157 H Calcium 9.6 Magnesium 2.0 Total Bilirubin 0.4 AST 23 ALT 32 Alkaline Phosphatase 54 Total Protein 8.2 Albumin 4.6 Globulin 3.6 Albumin/Globulin Ratio 1.3 Lipase 30 PD MEDICAL DECISION MAKING - ED course Complexity details: reviewed results, re-evaluated patient (her potassium is low and would likely account for her symptoms. ), considered differential (gradual onset and progression numbness without weakness, bilaterally and more central (face, trunk, thighs). Does not sound cerebrovascular. Assess for lytes initially. ), d/w patient Departure - Departure Disposition: 01 Home, Self Care Clinical Impression: Paresthesia, Hypokalemia Condition: Stable Record reviewed to determine appropriate education?: Yes Instructions: ED Potassium Deficiency Comments: Your potassium level of 2.9 is moderately low and is low enough to account for the numbness feelings that you are having. I think your symptoms are caused by that. The main contributor of it being low is likely your chlorthalidone. For now I would have you decrease the dose in half. I would double your potassium supplement for the next 4 to 5 days as well. Contact your primary care and see if they can see you later this week for a follow-up or at least order repeat chemistry panel/electrolytes for several days from now to ensure its improving well enough.
[2021-09-30] MEDS ORDERED: ACETAMINOPHEN 325 MG TABLET PO STA (01:06)
[2021-09-30] MEDS ORDERED: KETOROLAC 30 MG/ML VIAL IM STA (01:06)
[2021-09-30 01:35] LABS: ALBUMIN 4.6 g/dL (3.2-5.5); ALBUMIN/GLOBULIN RATIO 1.3 (1.0-2.2); BILIRUBIN,TOTAL 0.4 mg/dL (0.2-1.0); CALCIUM 9.6 mg/dL (8.5-10.3); CREATININE 0.7 mg/dL (0.4-1.0); POTASSIUM 2.9 mmol/L (3.5-5.0); TOTAL PROTEIN 8.2 g/dL (6.7-8.2)
[2021-09-30 01:43] VITALS: BP 141/91
[2021-09-30] MEDS ORDERED: POTASSIUM CHLORIDE 20 MEQ TABLET PO STA (01:45)
== END 2021-09-30 01:58 | disposition home or self-care (01) ==
LOC: ED 23:30
DX: S39.012A Strain of muscle, fascia and tendon of lower back, initial encounter (principal); X50.1XXA Overexertion from prolonged static or awkward postures, initial encounter; Y93.89 Activity, other specified; E87.6 Hypokalemia; R20.0 Anesthesia of skin; I10 Essential (primary) hypertension; F17.200 Nicotine dependence, unspecified, uncomplicated
CPT/HCPCS: 36415; 80053; 83690; 83735; 96372; 99283; 99284; A9270

== ENCOUNTER 2023-06-09 12:01 | Emergency (ER) | payer MEDICAID ==
[2023-06-09 12:17] VITALS: BP 147/82; O2SAT 99
[2023-06-09] MEDS ORDERED: CHERRY SYRUP 10 ML UDC PO ONE (12:26)
[2023-06-09] MEDS ORDERED: DEXAMETHASONE 10 MG/ML VIAL PO STA (12:26)
--- NOTE | 2023-06-09 12:29 | ED Physician Documentation ---
History of Present Illness - Stated complaint Stated Complaint: LOWER BACK PX,BEAN - Chief complaint Chief Complaint: Back Pain - Additonal information Additional information: 38-year-old female presents emergency department for evaluation of acute right- sided low back pain with radiation down the leg. She states that she was traveling to [facility] yesterday for vacation. She moved away from the [place] about a year ago. States her car got a flat tire and when she was changing the tire she threw her back out. She did take some leftover hydrocodone and Percocet without relief of pain. At baseline she states that she has both foraminal and lumbar stenosis. She has chronic right-sided leg numbness which is not new. Since injuring her back she has had no saddle anesthesia, loss of bowel or bladder function. She has an allergy to NSAID medications. Recently completed a course of [place] after she had her teeth removed. Presentation to the emergency department the patient is ambulatory though she is stooped over. I do appreciate a heart rate of 138. She is without fever or hypotension. In review of multiple other ED visits I do see that she often has tachycardia. Patient drove her own vehicle here to the ER and as such I cannot prescribe narcotic while in the department. 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 : None HEENT: Chronic hearing loss Psych: Depression, ADD/ADHD Musculoskeletal: Osteoarthritis, Fibromyalgia, Chronic back pain Derm: None - Past Surgical History Past Surgical History: Yes /HUMAN RESOURCES OFFICE ASSISTANT: LEEP (Cervical surgery) HEENT: Tonsil/Adenoidectomy - Present Medications Home Medications: Ambulatory Orders Medication Instructions Recorded Confirmed Albuterol Sulfate [Proventil Hfa 1 - 2 puffs INH Q4H PRN 01/06/19 06/09/23 Inhaler] diphenhydrAMINE [Benadryl] 50 mg PO HS 01/06/19 06/09/23 DULoxetine [Cymbalta] 60 mg PO DAILY 11/08/20 06/09/23 Atenolol [Tenormin] 0 mg ORAL DAILY 06/09/23 06/09/23 Cyclobenzaprine [Flexeril] 10 mg PO TID PRN #15 tablet 06/09/23 Topiramate [Topamax] 25 mg PO HS 06/09/23 06/09/23 oxyCODONE [Roxicodone] 5 mg PO BID PRN #10 tablet 06/09/23 - Allergies Allergies/Adverse Reactions: Allergies Allergy/AdvReac Type Severity Reaction Status Date / Time gabapentin Allergy Unknown Verified 06/09/23 12:09 tramadol Allergy Anxiety Verified 06/09/23 12:09 codeine [Codeine] AdvReac Unknown Respiratory Verified 06/09/23 12:09 naproxen AdvReac Unknown Respiratory Verified 06/09/23 12:09 pregabalin [From Lyrica] AdvReac Unknown Respiratory Verified 06/09/23 12:09 - Social History Does the pt smoke?: Yes Smoking Status: Current every day smoker Does the pt drink ETOH?: No Does the pt have substance abuse?: No - Immunizations Immunizations are current?: Yes - POLST Patient has POLST: No PD ED PE NORMAL - General General: Alert and oriented X 3, No acute distress - Cardiac Cardiac: RRR (tachycardia) - Respiratory Respiratory: No respiratory distress, Clear bilaterally - Abdomen Abdomen: Normal bowel sounds, Soft - Back Back: No spinal TTP (no midline lumbar tenderness elicied. No rash. Difficulty standing straight. + straight leg right side. Subjective numbess right leg. ), Other (motor strength 4/4 BLE. ) - Derm Derm: No rash - Neuro Neuro: Alert and oriented X 3 Eye Opening: Spontaneous Motor: Obeys Commands Verbal: Oriented GCS Score: 15 Results - Vitals Vitals: Vital Signs - 24 hr 06/09/23 12:10 Temperature 36 C L Heart Rate 138 H Respiratory 20 Rate Blood Pressure 147/82 H O2 Saturation 99 Oxygen O2 Source Room air PD Medical Decision Making - ED course Complexity details: reviewed old records, re-evaluated patient, d/w patient ED course: 38-year-old female presents emergency department for evaluation of acute on chronic right-sided low back pain that occurred yesterday after she was changing a flat tire on her car. Patient does report chronic low back pain and has a history of both spinal and foraminal stenosis. Reports chronic right leg numbness though no weakness. She has no saddle anesthesia, loss of bowel or bladder function. History and exam is not consistent with a cauda equina or spinal epidural abscess. Has previously been seen multiple times in this emergency department for various pain etiologies. Here in the emergency department she appears well though has difficulty standing upright due to the back pain. No midline tenderness was elicited. She does have positive straight leg exam,likely sciatica. Given that the patient drove herself to the emergency department we are unable to administer narcotic pain relievers here in the ED. She also has an allergy to NSAID medication. I did administer her single dose of Decadron and she will be discharged with a very limited prescription of oxycodone and Flexeril. I do appreciate the patient's elevated heart rate during this ED visit. In review of previous ED visits she typically presents and has heart rates that are in the 120s and 130s. I suspect some of this is baseline as well as additional pain and nicotine use. She is discharged home in stable condition with usual emergent return precautions discussed. I am prescribing a short course of short-acting opioid pain medication for this patient. 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 I have discussed that the opioids are for short term therapy only, and will not be refilled from the ED. Departure - Departure Disposition: 01 Home, Self Care Clinical Impression: Acute exacerbation of chronic low back pain, Sciatica, right side Condition: Stable Record reviewed to determine appropriate education?: Yes Instructions: ED Back Care Tips Prescriptions: Cyclobenzaprine [Flexeril] 10 mg PO TID PRN #15 tablet PRN Reason: Spasms oxyCODONE [Roxicodone] 5 mg PO BID PRN #10 tablet PRN Reason: Pain Comments: Jaz when you are changing your car tire yesterday you seem to have exacerbated your low back pain that you have had previously in the past. In general we would recommend Tylenol, gentle stretching, ice. It is important to stay as active as you can with back pain as an activity can cause spasm and increasing pain. I have sent a limited prescription for oxycodone to the [facility] in [place]. Use this cautiously, it is addictive as well as causes constipation. You are not safe to drive if taking this medication. I have also prescribed a limited amount of Flexeril a muscle relaxant. When you return to the [facility] I encourage you to follow closely with your primary care doctors for longer-term evaluation and management of your back pain. Return to the ER for any new or worsening symptoms. I am prescribing a short course of narcotic pain medication for you. These are potentially dangerous and addictive medications that should be used carefully. These medications may constipate you. Take an [id number] stool softener (docusate) twice daily with plenty of water while taking these medications. If you go 24 hours without a bowel movement, take [id number] miralax, per package instructions. Do not drink or drive while taking these medications. If you received narcotic or sedating medications while in the emergency department, do not drive for 24 hours. Store this medication in a safe, secure place and out of reach of children. It is a violation of federal law to give or sell this medication to another person or to use in a manner other than prescribed. The ED will not refill narcotic prescriptions, including prescriptions lost or stolen. To dispose of unwanted medications: 1. [facility] [address] in [place] has a medication drop box. They accept prescription medications (in pill form) Wednesday through Wednesday 9:00 a.m. to 5:00 p.m. 2. The [facility] [employer] accepts prescription medications (in pill form only) for disposal year round. Call for more information. 3. Contact the [facility] for the next [facility] sponsored prescription drug collection event. , [phone], or [phone]; Note that many narcotic pain relievers also contain Tylenol/acetaminophen. Please ensure that your total dose of acetaminophen from all sources does not exceed 3 g (3000 mg) per day.
== END 2023-06-09 13:09 | disposition home or self-care (01) ==
LOC: ED 12:01
DX: M54.41 Lumbago with sciatica, right side (principal); I10 Essential (primary) hypertension; E78.00 Pure hypercholesterolemia, unspecified; F17.200 Nicotine dependence, unspecified, uncomplicated; Z79.899 Other long term (current) drug therapy
CPT/HCPCS: 99282; 99283; A9270